=== PATIENT | female | born 1965 | race Caucasian/White ===

== ENCOUNTER 2020-02-18 16:23 | Inpatient (IN) ==
--- NOTE | 2020-02-18 16:58 | Emergency Department Note ---
History of Present Illness General Chief complaint: Mental Health Evaluation Stated complaint: MENTAL HEALTH Time Seen by Provider: 02/18/20 16:38 Source: patient and old records reviewed (I have reviewed the notes from [facility] today) Mode of arrival: ambulatory Limitations: no limitations History of Present Illness Maximum Pain Intensity: 6 This patient has a history of bipolar and anxiety is sent over from the [facility]. She is been having increasing problems with her mood and cleaning. She has been on multiple medications in the past. She was on lithium for many years which she said she did well but they stopped it earlier this year due to renal issues. Since then she is been on multiple meds which she said they cannot find the right one. Her most recent was Trileptal. She says that her thoughts are dis organized. She does not sleep well. She denies that she has taken any extra medicine or overdose. Denies aspirin or Tylenol. Klonopin does help when she uses it. No drugs or alcohol. She has had thoughts of hurting herself such as crashing her car. Denies any physical complaints. Home Medications Home Medications Medication Instructions Recorded Confirmed Type cholecalciferol (vitamin D3) 2,000 unit PO DAILY 05/27/18 02/18/20 History [Vitamin D3] clonazepam [Klonopin] 1 mg PO HS PRN 05/27/18 02/18/20 History cyanocobalamin (vitamin B-12) 500 mcg PO DAILY 05/27/18 02/18/20 History [Vitamin B-12] topiramate [Topamax] 50 mg PO BID 05/27/18 02/18/20 History acetaminophen 1,000 mg PO BID 01/07/19 02/18/20 History gabapentin 300 mg PO BID 01/07/19 02/18/20 History hydroxyzine HCl 25 mg tablet See Rx Instructions PO .COMPLEX 09/10/19 02/18/20 History montelukast 10 mg tablet 10 mg PO HS #90 tab 10/23/19 02/18/20 Rx albuterol sulfate 90 mcg/actuation 2 puff INHALATION Q4 PRN #18 gm 02/11/20 02/18/20 Rx aerosol inhaler levothyroxine 100 mcg tablet 100 mcg PO QAM #30 tab 02/12/20 02/18/20 Rx baclofen 5 mg PO TID PRN 02/18/20 02/18/20 History clonazepam 0.25 mg PO BID PRN 02/18/20 02/18/20 History lisdexamfetamine 20 mg PO QAM 02/18/20 02/18/20 History omeprazole 40 mg PO HS 02/18/20 02/18/20 History oxcarbazepine 150 mg PO BID 02/18/20 02/18/20 History ropinirole 0.25 mg tablet 0.25 mg PO TID #90 tab 02/18/20 02/18/20 Rx sertraline [Zoloft] 200 mg PO DAILY 02/18/20 02/18/20 History Allergies Allergy/AdvReac Type Severity Reaction Status Date / Time quetiapine [From Seroquel] Allergy Severe tardive Verified 02/18/20 18:32 dyskinesia cyclobenzaprine Allergy Intermediate severe Verified 02/18/20 18:32 depression latex Allergy Mild lehman; Verified 02/18/20 18:32 leaves a vani on skin NSAIDS (Non-Steroidal Allergy Mild Gastrointestinal Verified 02/18/20 18:32 Anti-Inflamma Upset psyllium [From Metamucil] Allergy Wheezing Verified 02/18/20 18:32 strawberry Allergy Hives Verified 02/18/20 18:32 Past Med/Surg History Medical History Anemia Anxiety Asthma (Chronic) inhaler prn Bipolar 1 disorder (Chronic) Chronic back pain Chronic kidney disease, stage 3 Depression History of anesthesia reaction difficulty waking up Hypothyroidism Osteoarthritis Prediabetes Sciatic leg pain left Tardive dyskinesia Surgical History History of bilateral tubal ligation History of carpal tunnel surgery of left wrist x2 History of carpal tunnel surgery of right wrist History of section History of cholecystectomy History of dilatation and curettage History of endometrial ablation History of gastric bypass History of tonsillectomy Family History Brother Family history of diabetes mellitus Father Family history of diabetes mellitus Aunt Family history of diabetes mellitus Grandfather (Paternal) Family history of diabetes mellitus Grandmother (Paternal) Family history of diabetes mellitus Other No family history of adverse response to anesthesia Social History Smoking Status: Former smoker Second Hand Exposure: Yes (work environment); Hx Alcohol Use: No Hx Substance Use: No Preferred Language: Turkish Communication Ability: Effective C Application Developer Required: No Beliefs That Will Affect Care: None Current Living Situation: Family Current Living Situation Comment: Lives with son current occupational status: employed Feels Safe at Home: Yes Review of Systems A total of 10 systems reviewed and were otherwise negative She denies any known exposure to COVID, denies cough or shortness of breath or body aches. No fever or chills. Physical Exam Vital Signs Vital Signs - 24 hr 02/18/20 16:34 02/18/20 17:59 Temperature 37.1 C Temperature Source Oral Pulse Rate 76 Pulse Rate [Right Finger] 71 Respiratory Rate 22 22 Respiratory Effort / Characteristics Non-Labored Non-Labored Spontaneous Respiratory Depth Normal Normal Respiratory Pattern Regular Regular Blood Pressure 138/84 Blood Pressure [Right Arm] 137/87 Blood Pressure Mean 102 Blood Pressure Mean [Right Arm] 103 Blood Pressure Position Sitting Pulse Oximetry 99 99 Oxygen Delivery Method Room Air Room Air Sepsis Recent Fever Within 48 Hours No Sepsis New/Unexplained Change in Mental Status No Sepsis Action Taken by Nursing No Action Required General: Well developed well nourished anxious middle-age female who has pressured speech but in no acute distress, breathing comfortably on room air. Normal speech HEENT: Normal cephalic atraumatic. Pupils are equal round and reactive to light. Extraocular movements are intact. Oropharynx is pink with moist mucous membranes. No swelling of the mouth lips or tongue. Neck: Supple with a midline trachea. No meningeal signs or stiffness, no JVD or bruits. No Stridor. Chest: Clear to auscultation bilaterally. No wheezes or rhonchi. No increased work of breathing. Heart: Regular rate and rhythm without murmurs or gallops. Abdomen: Soft nontender, nondistended without rebound guarding or rigidity. Extremities: No cyanosis clubbing or edema. No calf tenderness or assymetry Spine/Back. Non tender to palpation. No CVA tenderness Skin: Good turgor without rashes. Neurologic exam: Cranial nerves two through 12 are intact. Motor and sensation are intact and symmetrical throughout. Psych: She is intermittently teary-eyed and admits to having suicidal ideations but denies homicidal ideation Course Administered Medications Discontinued Medications Lorazepam (Ativan) 1 mg PO NOW STA Stop: 02/18/20 17:45 Last Admin: 02/18/20 18:05 Dose: 1 mg Documented by: [id number] Medical Decision Making Differential Diagnosis Bipolar, anxiety, toxicologic, medication side effect, electrolyte or metabolic abnormality, suicidal ideation Medical Records Attestation: I reviewed the patient's medical records. Home Medications Current Medication List: was personally reviewed by me Laboratory Data Result diagrams: 02/18/20 17:26 02/18/20 17:26 Lab Results 02/18/20 02/18/20 02/18/20 Range/Units 16:58 16:58 17:26 WBC 5.89 (4.8-10.8) K/uL RBC 5.24 (4.2-5.4) M/uL Hgb 13.9 (12.0-16.0) g/dL Hct 43.1 (37-47) % MCV 82.3 (80-100) fL MCH 26.5 (25-34) pg MCHC 32.3 (32-36) g/dL RDW Std Deviation 40.6 (36.4-46.3) fL RDW Coeff of Juan Diego 13.5 (11.5-14.5) % Plt Count 249 (130-400) K/uL MPV 11.3 H (7.4-10.4) fL Immature Gran % (Auto) 0.2 % Neut % (Auto) 67.0 % Lymph % (Auto) 21.9 % [place] % (Auto) 7.3 % Eos % (Auto) 3.1 % Baso % (Auto) 0.5 % Neut # (Auto) 3.95 (1.4-6.5) K/uL Lymph # (Auto) 1.29 (1.2-3.4) K/uL [place] # (Auto) 0.43 (0.11-0.59) K/uL Eos # (Auto) 0.18 (0-0.5) K/uL Baso # (Auto) 0.03 (0-0.2) K/uL Immature Gran # (Auto) 0.01 (0.00-0.02) K/uL Sodium (136-145) mmol/L Potassium (3.5-5.1) mmol/L Chloride (98-107) mmol/L Carbon Dioxide (21-32) mmol/L Anion Gap (3-11) BUN (7-18) mg/dl Creatinine (0.6-1.2) mg/dl Est Cr Clr Drug Dosing ml/min Est GFR ( Amer) Est GFR (Non-Af Amer) BUN/Creatinine Ratio (10-20) Glucose (70-99) mg/dl Calcium (8.5-10.1) mg/dl Total Bilirubin (0.2-1) mg/dl AST (15-37) U/L ALT (12-78) U/L Alkaline Phosphatase (45-117) U/L Total Protein (6.4-8.2) gm/dl Albumin (3.4-5.0) gm/dl Globulin (2.5-4.0) gm/dl Albumin/Globulin Ratio (0.9-2) TSH (0.300-4.500) uIu/ml Urine Color Yellow Urine Appearance Clear (Clear) Urine pH 8.0 H (4.5-7.5) Ur Specific Fraser 1.007 (1.000-1.030) Urine Protein Negative (Negative) Urine Glucose (UA) Negative (Negative) Urine Ketones Negative (Negative) Urine Blood Negative (Negative) Urine Nitrite Negative (Negative) Urine Bilirubin Negative (Negative) Urine Urobilinogen Negative (Negative) Ur Leukocyte Esterase Negative (Negative) Salicylates (2.8-20) mg/dl Urine Opiates Screen Neg (Neg) Ur Methadone, Qual Neg (Neg) Acetaminophen (10-30) ug/ml Urine Barbiturates Neg (Neg) Ur Phencyclidine (PCP) Neg (Neg) U Amphetamin/Meth Scrn Neg (Neg) MDMA (Ecstasy) Screen Neg (Neg) U Benzodiazepines Scrn Neg (Neg) Ur Cocaine Metabolite Neg (Neg) U Marijuana (THC) Screen Neg (Neg) Ethyl Alcohol mg/dL (0-3) mg/dl 02/18/20 02/18/20 02/18/20 Range/Units 17:26 17:26 17:26 WBC (4.8-10.8) K/uL RBC (4.2-5.4) M/uL Hgb (12.0-16.0) g/dL Hct (37-47) % MCV (80-100) fL MCH (25-34) pg MCHC (32-36) g/dL RDW Std Deviation (36.4-46.3) fL RDW Coeff of Juan Diego (11.5-14.5) % Plt Count (130-400) K/uL MPV (7.4-10.4) fL Immature Gran % (Auto) % Neut % (Auto) % Lymph % (Auto) % [place] % (Auto) % Eos % (Auto) % Baso % (Auto) % Neut # (Auto) (1.4-6.5) K/uL Lymph # (Auto) (1.2-3.4) K/uL [place] # (Auto) (0.11-0.59) K/uL Eos # (Auto) (0-0.5) K/uL Baso # (Auto) (0-0.2) K/uL Immature Gran # (Auto) (0.00-0.02) K/uL Sodium 141 (136-145) mmol/L Potassium 4.0 (3.5-5.1) mmol/L Chloride 112 H (98-107) mmol/L Carbon Dioxide 26 (21-32) mmol/L Anion Gap 4.0 (3-11) BUN 22 H (7-18) mg/dl Creatinine 1.13 (0.6-1.2) mg/dl Est Cr Clr Drug Dosing 67.4 ml/min Est GFR ( Amer) 62.9 Est GFR (Non-Af Amer) 54.3 BUN/Creatinine Ratio 19.6 (10-20) Glucose 72 (70-99) mg/dl Calcium 9.9 (8.5-10.1) mg/dl Total Bilirubin 0.2 (0.2-1) mg/dl AST 28 (15-37) U/L ALT 42 (12-78) U/L Alkaline Phosphatase 187 H (45-117) U/L Total Protein 7.5 (6.4-8.2) gm/dl Albumin 3.8 (3.4-5.0) gm/dl Globulin 3.7 (2.5-4.0) gm/dl Albumin/Globulin Ratio 1.0 (0.9-2) TSH 0.722 (0.300-4.500) uIu/ml Urine Color Urine Appearance (Clear) Urine pH (4.5-7.5) Ur Specific Fraser (1.000-1.030) Urine Protein (Negative) Urine Glucose (UA) (Negative) Urine Ketones (Negative) Urine Blood (Negative) Urine Nitrite (Negative) Urine Bilirubin (Negative) Urine Urobilinogen (Negative) Ur Leukocyte Esterase (Negative) Salicylates < 1.7 L (2.8-20) mg/dl Urine Opiates Screen (Neg) Ur Methadone, Qual (Neg) Acetaminophen < 2 L (10-30) ug/ml Urine Barbiturates (Neg) Ur Phencyclidine (PCP) (Neg) U Amphetamin/Meth Scrn (Neg) MDMA (Ecstasy) Screen (Neg) U Benzodiazepines Scrn (Neg) Ur Cocaine Metabolite (Neg) U Marijuana (THC) Screen (Neg) Ethyl Alcohol mg/dL < 3.0 (0-3) mg/dl Blood Pressure Blood Pressure Findings: Normal blood pressure Blood Pressure Disposition: did not require urgent referral MDM Narrative This patient comes in as described above she was placed in room A5. She is having increased anxiety and suicidal ideations with disorganized thoughts. She was sent over from her psychiatrist office. Multiple blood tests and urinalysis were ordered for medical clearance. She was medically cleared. She has nothing to suggest infection, toxicologic, metabolic or electrolyte or other reason causing her symptoms. She was evaluated a psychiatric case management team as well. She was referred to [facility] and will be admitted for further inpatient treatment and evaluation. She was feeling more anxious and did get Ativan 1 mg p.o. at the seem to calm her down. She also needed her evening dose of inhaler and she did receive her albuterol when I went to check her she was resting comfortable with no complaints with this. Prior to going upstairs to [facility] she did also request her Requip which I ordered for her restless leg. She was admitted/observed Impression & Plan Bipolar 1 disorder, Anxiety, Restless leg syndrome, Asthma Discharge Plan Visit Data Chief Complaint: Mental Health Evaluation Stated Complaint: MENTAL HEALTH ED Provider: Sohail Thurston Discharge Problem: Bipolar 1 disorder, Anxiety, Restless leg syndrome, Asthma Forms Stand Alone Forms: My [facility] [email or web address], Suicide Prevention Resources Prescriptions Prescriptions: No Action montelukast [Singulair] 10 mg tablet 10 mg PO HS Qty: 90 RF: 1 levothyroxine 100 mcg tablet 100 mcg PO QAM Qty: 30 RF: 5 ropinirole [Requip] 0.25 mg tablet 0.25 mg PO TID Qty: 90 RF: 2 albuterol sulfate [Ventolin HFA] 90 mcg/actuation HFA aerosol inhaler 2 puff INHALATION Q4 PRN (Reason: Shortness Of Breath Or Wheezing) Qty: 18 RF: 1 hydroxyzine HCl 25 mg tablet See Rx Instructions PO .COMPLEX RF: 0 acetaminophen 500 mg Tablet 1,000 mg PO BID RF: 0 gabapentin 300 mg Capsule 300 mg PO BID RF: 0 clonazepam 0.25 mg PO BID PRN (Reason: Anxiety) RF: 0 sertraline [Zoloft] 100 mg tablet 200 mg PO DAILY RF: 0 omeprazole 40 mg capsule,delayed release(DR/EC) 40 mg PO HS RF: 0 lisdexamfetamine 20 mg capsule 20 mg PO QAM RF: 0 baclofen 5 mg tablet 5 mg PO TID PRN (Reason: Back Pain) RF: 0 oxcarbazepine 150 mg PO BID RF: 0 clonazepam [Klonopin] 1 mg tablet 1 mg PO HS PRN (Reason: Anxiety) RF: 0 cyanocobalamin (vitamin B-12) [Vitamin B-12] 500 mcg Tablet 500 mcg PO DAILY RF: 0 topiramate [Topamax] 50 mg tablet 50 mg PO BID RF: 0 cholecalciferol (vitamin D3) [Vitamin D3] 5,000 unit Tablet 2,000 unit PO DAILY RF: 0 Discharge Problem: Asthma Qualifiers: Asthma severity: unspecified severity Asthma persistence: intermittent Asthma complication type: unspecified Qualified Code(s): J45.20 - Mild intermittent asthma, uncomplicated
[2020-02-18 17:11] LABS: Appearance Urine Clear (Clear); Bilirubin Urine Negative (Negative); Blood Urine Negative (Negative); Color Urine Yellow; Glucose Urine UA Negative (Negative); Ketones Urine Negative (Negative); Leukocyte Esterase Urine Negative (Negative); Nitrite Urine Negative (Negative); Protein Urine Negative (Negative); Specific Gravity Urine 1.007 (1.000-1.030); Urobilinogen Urine Negative (Negative)
[2020-02-18 17:33] LABS: Amphetamines+Metham, Urine Neg (Neg); Barbiturates, Urine Neg (Neg); Benzodiazepine, Urine Neg (Neg); Cocaine, Urine Neg (Neg); MDMA (Ecstacy), Urine Neg (Neg); Methadone, Urine Neg (Neg); Opiate, Urine Neg (Neg); Phencyclidine, Urine Neg (Neg)
[2020-02-18 17:42] LABS: Basophils # (auto) 0.03 K/uL (0-0.2); Basophils % (auto) 0.5 %; Eosinophils # (auto) 0.18 K/uL (0-0.5); Eosinophils % (auto) 3.1 %; Hematocrit (blood only) 43.1 % (37-47); Hemoglobin 13.9 g/dL (12.0-16.0); Immature Granulocytes # (auto) 0.01 K/uL (0.00-0.02); Immature Granulocytes % (auto) 0.2 %; Lymphocytes # (auto) 1.29 K/uL (1.2-3.4); Lymphocytes % (auto) 21.9 %; Mean Corpuscular Hemoglobin 26.5 pg (25-34); Mean Corpuscular Hgb Conc 32.3 g/dL (32-36); Mean Corpuscular Volume 82.3 fL (80-100); Mean Platelet Volume 11.3 fL (7.4-10.4); Monocytes # (auto) 0.43 K/uL (0.11-0.59); Monocytes % (auto) 7.3 %; Neutrophils # (auto) 3.95 K/uL (1.4-6.5); Platelet Count 249 K/uL (130-400); RDW Coefficient of Variation 13.5 % (11.5-14.5); RDW Standard Deviation 40.6 fL (36.4-46.3); Red Blood Count 5.24 M/uL (4.2-5.4); White Blood Count 5.89 K/uL (4.8-10.8)
[2020-02-18] MEDS ORDERED: LORazepam 1 MG TAB PO STA (17:44)
[2020-02-18 18:00] LABS: Albumin Level 3.8 gm/dl (3.4-5.0); BUN Creatinine Ratio 19.6 (10-20); Calcium 9.9 mg/dl (8.5-10.1); Creatinine Clr Calc Pharmacy 67.4 ml/min; Est GFR (African American) 62.9; Est GFR (Non-African American) 54.3
[2020-02-18 18:02] LABS: Acetaminophen < 2 ug/ml (10-30); Salicylate < 1.7 mg/dl (2.8-20)
[2020-02-18 18:11] LABS: Bilirubin,Total 0.2 mg/dl (0.2-1); Globulin 3.7 gm/dl (2.5-4.0); Thyroid Stimulating Hormone 0.722 uIu/ml (0.300-4.500); Total Protein 7.5 gm/dl (6.4-8.2)
[2020-02-18] MEDS ORDERED: ROPINIROLE HCL 0.25 MG TABLET PO STA (21:40)
[2020-02-18] MEDS ORDERED: ALUMINUM/MAGNESIUM SUSP 30 ML UDC PO PRN (22:01)
[2020-02-18] MEDS ORDERED: ACETAMINOPHEN 325 MG TAB PO PRN (22:01)
[2020-02-18] MEDS ORDERED: SODIUM CHLORIDE 0.65% NA SOLN 45 ML (OCEAN) PRN (22:01)
[2020-02-18] MEDS ORDERED: MAGNESIUM HYDROXIDE SUSP 30 ML UDC PO PRN (22:01)
[2020-02-18] MEDS ORDERED: BACLOFEN 10 MG TAB PO PRN (22:09)
[2020-02-18] MEDS ORDERED: ALBUTEROL HFA 8 GM INHALER INH PRN (22:09)
[2020-02-18] MEDS: GABAPENTIN 300 MG CAP PO SCH (23:02)
[2020-02-18] MEDS: TOPIRAMATE 50 MG TAB PO SCH (23:03)
[2020-02-18] MEDS: OXcarbazepine 150 MG TABLET PO SCH (23:04)
[2020-02-18] MEDS: ACETAMINOPHEN 500 MG TAB PO SCH (23:04)
[2020-02-18] MEDS: clonazePAM 1 MG TAB PO PRN (23:05)
[2020-02-19] MEDS ORDERED: ALBUTEROL HFA 8 GM INHALER INH PRN (00:45)
[2020-02-19] MEDS: ACETAMINOPHEN 500 MG TAB PO SCH ×2 (08:10→21:17)
[2020-02-19] MEDS: TOPIRAMATE 50 MG TAB PO SCH ×2 (08:10→21:16)
[2020-02-19] MEDS: CHOLECALCIFEROL 1,000 UNITS 25 MCG TAB PO SCH (08:10)
[2020-02-19] MEDS: OXcarbazepine 150 MG TABLET PO SCH ×2 (08:11→21:16)
[2020-02-19] MEDS: GABAPENTIN 300 MG CAP PO SCH ×2 (08:11→21:15)
[2020-02-19] MEDS: ROPINIROLE HCL 0.25 MG TABLET PO SCH ×3 (08:11→21:15)
[2020-02-19] MEDS: LEVOTHYROXINE SODIUM 100 MCG TABLET PO SCH (08:11)
[2020-02-19] MEDS: CYANOCOBALAMIN 500 MCG TABLET (VITAMIN B-12) PO SCH (08:11)
[2020-02-19] MEDS: SERTRALINE HCL 100 MG TABLET PO SCH (08:11)
[2020-02-19] MEDS ORDERED: LISDEXAMFETAMINE PO SCH (09:00)
[2020-02-19] MEDS ORDERED: LISDEXAMFETAMINE DIMESYLATE PO SCH (09:00)
[2020-02-19] MEDS: clonazePAM 0.5 MG TAB PO PRN ×2 (10:01→15:49)
--- NOTE | 2020-02-19 12:20 | History & Physical ---
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 emergency department has been reviewed and is excepted for purposes of medical clearance to the behavioral health unit. In addition, the patient reports a history of restless leg syndrome, binge eating disorder, and hypoglycemia following consumption of high glycemic foods. Physical Exam Psychiatric: Orientation: alert, oriented x 3 and cooperative Apperance: appropriately dressed and appropriately groomed Eye Contact: good eye contact Motor Behavior: + psychomotor agitation; + abnormal motor movements Abnormal involuntary movements of the head, neck, and tongue consistent with tardive dyskinesia Speech: + pressured speech Affect: + labile affect "I am manic." Thought Process: + flight of ideas Thought Content: + delusions (The patient states that 1 of her former psychiatrist, an individual who is known to me, "went to assisted for many years" in the past and, while in assisted, was ordered to wear "cowboy boots" for the rest of his life. Because of the nature of my contact with the previous psychiatrist, I can say with a fair degree of certainty that he was never imprisoned, although he does wear cowboy boots frequently.) Suicidal Thoughts: + reports suicidal thoughts Patient reports that she does not feel that she can contract for safety outside of the hospital because of the intensity of the thoughts that she was having of driving her car into the path of a semi-tractor trailer. When I asked her how she thought that might affect the charter and tour bus driver of the tractor-trailer, she began to say, "oh, he might be traumatized at first, but he will get over it." And then the patient paused and added, "See? That is not like me to say something like that or to think something like that. It is how I am when I am manic." Homicidal Thoughts: denies homicidal thoughts Hallucinations: no auditory hallucinations, no visual hallucinations and no tactile hallucinations Cognition: recent memory grossly intact and remote memory grossly intact; + attention not intact Estimated Intelligence: + above average estimated intelligence Insight: + fair insight Judgement: + fair judgement Vital Signs (Past 24 Hours): Last Vital Signs Temp 36.4 C L 02/19/20 06:42 Pulse 57 L 02/19/20 06:44 Resp 18 02/19/20 06:42 BP 139/89 02/19/20 06:44 Pulse Ox 99 02/18/20 17:59 Results & Data ([facility]) Laboratory Results Laboratory Results - last 24 hr 02/18/20 02/18/20 02/18/20 16:58 16:58 17:26 WBC 5.89 RBC 5.24 Hgb 13.9 Hct 43.1 MCV 82.3 MCH 26.5 MCHC 32.3 RDW Std Deviation 40.6 RDW Coeff of [place] 13.5 Plt Count 249 MPV 11.3 H Immature Gran % (Auto) 0.2 Neut % (Auto) 67.0 Lymph % (Auto) 21.9 Sutter % (Auto) 7.3 Eos % (Auto) 3.1 Baso % (Auto) 0.5 Neut # (Auto) 3.95 Lymph # (Auto) 1.29 Sutter # (Auto) 0.43 Eos # (Auto) 0.18 Baso # (Auto) 0.03 Immature Gran # (Auto) 0.01 Sodium Potassium Chloride Carbon Dioxide Anion Gap BUN Creatinine Est Cr Clr Drug Dosing Est GFR ( Amer) Est GFR (Non-Af Amer) BUN/Creatinine Ratio Glucose Calcium Total Bilirubin AST ALT Alkaline Phosphatase Total Protein Albumin Globulin Albumin/Globulin Ratio TSH Urine Color Yellow Urine Appearance Clear Urine pH 8.0 H Ur Specific [place] 1.007 Urine Protein Negative Urine Glucose (UA) Negative Urine Ketones Negative Urine Blood Negative Urine Nitrite Negative Urine Bilirubin Negative Urine Urobilinogen Negative Ur Leukocyte Esterase Negative Salicylates Urine Opiates Screen Neg Ur Methadone, Qual Neg Acetaminophen Urine Barbiturates Neg Ur Phencyclidine (PCP) Neg U Amphetamin/Meth Scrn Neg MDMA (Ecstasy) Screen Neg U Benzodiazepines Scrn Neg Ur Cocaine Metabolite Neg U Marijuana (THC) Screen Neg Ethyl Alcohol mg/dL 02/18/20 02/18/20 02/18/20 17:26 17:26 17:26 WBC RBC Hgb Hct MCV MCH MCHC RDW Std Deviation RDW Coeff of [place] Plt Count MPV Immature Gran % (Auto) Neut % (Auto) Lymph % (Auto) Sutter % (Auto) Eos % (Auto) Baso % (Auto) Neut # (Auto) Lymph # (Auto) [place]utter # (Auto) Eos # (Auto) Baso # (Auto) Immature Gran # (Auto) Sodium 141 Potassium 4.0 Chloride 112 H Carbon Dioxide 26 Anion Gap 4.0 BUN 22 H Creatinine 1.13 Est Cr Clr Drug Dosing 67.4 Est GFR ( Amer) 62.9 Est GFR (Non-Af Amer) 54.3 BUN/Creatinine Ratio 19.6 Glucose 72 Calcium 9.9 Total Bilirubin 0.2 AST 28 ALT 42 Alkaline Phosphatase 187 H Total Protein 7.5 Albumin 3.8 Globulin 3.7 Albumin/Globulin Ratio 1.0 TSH 0.722 Urine Color Urine Appearance Urine pH Ur Specific [place] Urine Protein Urine Glucose (UA) Urine Ketones Urine Blood Urine Nitrite Urine Bilirubin Urine Urobilinogen Ur Leukocyte Esterase Salicylates < 1.7 L Urine Opiates Screen Ur Methadone, Qual Acetaminophen < 2 L Urine Barbiturates Ur Phencyclidine (PCP) U Amphetamin/Meth Scrn MDMA (Ecstasy) Screen U Benzodiazepines Scrn Ur Cocaine Metabolite U Marijuana (THC) Screen Ethyl Alcohol mg/dL < 3.0 Current Inpatient Medications Current Inpatient Medications: Current Inpatient Medications Acetaminophen (Tylenol) 650 mg PO Q4H PRN PRN Reason: Headache or Minor Fever Stop: 03/19/20 22:00 Acetaminophen (Tylenol) 1,000 mg PO BID SYLVIE Stop: 03/19/20 22:14 Last Admin: 02/19/20 08:10 Dose: 1,000 mg Documented by: Al Hydrox/Mg Hydrox/Simethicone (Maalox) 30 ml PO Q4H PRN PRN Reason: GI Upset Stop: 03/19/20 22:00 Albuterol (Ventolin Hfa) 2 puffs INH Q4 PRN PRN Reason: Shortness Of Breath Or Wheezin Stop: 03/19/20 22:08 Baclofen (Lioresal) 5 mg PO TID PRN PRN Reason: Back Pain Stop: 03/19/20 22:08 Clonazepam (Klonopin) 0.25 mg PO BID PRN PRN Reason: Anxiety Stop: 03/19/20 22:20 Last Admin: 02/19/20 10:01 Dose: 0.25 mg Documented by: Clonazepam (Klonopin) 1 mg PO HS PRN PRN Reason: Anxiety Stop: 03/19/20 22:08 Last Admin: 02/18/20 23:05 Dose: 1 mg Documented by: Cyanocobalamin (Vitamin B-12) 500 mcg PO DAILY SYLVIE Stop: 03/20/20 08:59 Last Admin: 02/19/20 08:11 Dose: 500 mcg Documented by: Gabapentin (Neurontin) 300 mg PO BID SYLVIE Stop: 03/19/20 22:14 Last Admin: 02/19/20 08:11 Dose: 300 mg Documented by: Hydroxyzine HCl (Vistaril) 25 - 100 mg PO HS PRN PRN Reason: Sleep Stop: 03/20/20 21:59 Levothyroxine Sodium (Synthroid) 100 mcg PO DAILYBB SYLVIE Stop: 03/20/20 07:59 Last Admin: 02/19/20 08:11 Dose: 100 mcg Documented by: Lisdexamfetamine Dimesylate (Vyvanse) 1 ea PO QAM [facility] Stop: 03/20/20 08:59 Last Admin: 02/19/20 08:29 Dose: 1 ea Documented by: Magnesium Hydroxide (Milk Of Magnesia) 30 ml PO DAILY PRN PRN Reason: Constipation Stop: 03/19/20 22:00 Miscellaneous (Order Awaiting Action) 1 ea N/A QS [facility] Stop: 03/20/20 00:00 Last Admin: 02/19/20 08:29 Dose: Not Given Documented by: Montelukast Sodium (Singulair) 10 mg PO HS [facility] Stop: 03/20/20 21:59 Lisdexamfetamine~ Patient's Own Controlled Med 1 ea PO QAM [facility] Stop: 03/04/20 08:59 Last Admin: 02/19/20 08:30 Dose: 1 ea Documented by: Oxcarbazepine (Trileptal) 300 mg PO BID [facility] Stop: 03/19/20 22:14 Last Admin: 02/19/20 08:11 Dose: 300 mg Documented by: Pantoprazole Sodium (Protonix) 40 mg PO HS [facility] Stop: 03/20/20 21:59 Ropinirole HCl (Requip) 0.25 mg PO TID SYLVIE Stop: 03/20/20 08:59 Last Admin: 02/19/20 08:11 Dose: 0.25 mg Documented by: Sertraline HCl (Zoloft) 200 mg PO DAILY [facility] Stop: 03/20/20 08:59 Last Admin: 02/19/20 08:11 Dose: 200 mg Documented by: Sodium Chloride ([place] Nasal) 1 - 2 sprays NA PRN PRN PRN Reason: Nasal Dryness/Congestion Stop: 03/19/20 22:00 Topiramate (Topamax) 50 mg PO BID [facility] Stop: 03/19/20 22:14 Last Admin: 02/19/20 08:10 Dose: 50 mg Documented by: Vitamin D (Vitamin D3) 2,000 units PO DAILY SYLVIE Stop: 03/20/20 08:59 Last Admin: 02/19/20 08:10 Dose: 2,000 units Documented by:
[2020-02-19] MEDS: LITHIUM CARBONATE 300 MG TAB PO SCH ×2 (15:18→21:18)
[2020-02-19] MEDS: MONTELUKAST SODIUM 10 MG TABLET PO SCH (21:19)
[2020-02-19] MEDS: clonazePAM 1 MG TAB PO PRN (22:06)
[2020-02-19] MEDS: PANTOprazole 40 MG TAB PO SCH (22:10)
[2020-02-20] MEDS: LITHIUM CARBONATE 300 MG TAB PO SCH ×2 (08:49→21:23)
[2020-02-20] MEDS: LEVOTHYROXINE SODIUM 100 MCG TABLET PO SCH (08:49)
[2020-02-20] MEDS: GABAPENTIN 300 MG CAP PO SCH ×2 (08:50→21:23)
[2020-02-20] MEDS: ROPINIROLE HCL 0.25 MG TABLET PO SCH ×3 (08:50→21:22)
[2020-02-20] MEDS: ACETAMINOPHEN 500 MG TAB PO SCH ×2 (08:51→21:22)
[2020-02-20] MEDS: CYANOCOBALAMIN 500 MCG TABLET (VITAMIN B-12) PO SCH (08:51)
[2020-02-20] MEDS: TOPIRAMATE 50 MG TAB PO SCH ×2 (08:51→21:21)
[2020-02-20] MEDS: CHOLECALCIFEROL 1,000 UNITS 25 MCG TAB PO SCH (08:51)
[2020-02-20] MEDS: SERTRALINE HCL 100 MG TABLET PO SCH (08:52)
--- NOTE | 2020-02-20 08:55 | Psychiatric Progress Note ---
Date of Service February 20, 2020 Impression / Recommendations Impression Admission Assessment Impression: This 55-year-old woman was admitted through the emergency room because of increasing thoughts of suicide, within the context of chronic suicidal ideation, as well as for symptoms of dena with diminished impulse control and judgment. She reports that for many years she was stable on lithium carbonate 600 mg in the morning and 300 mg in the evening. Her dose of lithium carbonate had been increased to 600 mg in the morning and 450 mg in the afternoon by adding an additional 150 mg dose, and although this had been intended to be a temporary increase it was continued for a long time and the patient reportedly became lithium toxic fairly precipitously, according the patient. The record indicates that at least in 2018 the patient had been taking lithium carbonate 600 mg twice a day, at one point of been taking 600 mg in the morning and 750 mg in the evening.. She was told that her kidney functions have been affected by the toxicity, but the current laboratory data indicates that her renal functions have returned to normal and that what was described was most likely an acute insult. She has tardive dyskinesia poorly associated with her use of antipsychotic medications in the pastshe believes the responsible chemotherapeutic agent was quetiapineand she says that she is disinclined to agree to take other antipsychotic medications at this point, even his mood stabilizers. She had been prescribed Trileptal after lithium was discontinued following the above referenced episode, but she notes that she has not been stable ever since Trileptal was added and she does not feel that it has been effective as a mood stabilizer. Given that she provides a very clear history of favorable response to lithium carbonate. The diagnosis of stage III renal d isease is noted in the record. However, a nephrology consultation completed on 02/13/[address] Yohan Liz MD does not recommend that lithium carbonate be discontinued. Her BUN over the past 3 years appears to have fluctuated, but is currently consistent with previous measures. Her creatinine has fluctuated between 1.3 and 1.5 in the past, but currently is within normal limits at 1.1. As was explained to the patient, the use of lithium carbonate in her case is not without its risks, and will require ongoing monitoring. However, I advised the patient in my opinion the risk of lithium carbonate and renal impairment due to lithium carbonate appears to be outweighed by the demonstrated benefit. She notes that she has tried several alternatives to lithium carbonate, including most recently Trileptal, and also Depakote and carbamazepine in the past, but nothing has worked nearly as well as lithium and stabilizing her mood. The patient has been taught and is able to repeat correctly the signs of lithium toxicity, and she has been advised to report rapidly to the emergency room if she develops any symptoms that are even suggestive of lithium toxicity in order to be tested. We reviewed the interventions that are typically taken if someone developed lithium toxicity and the patient expressed reassurance. She indicates that she feels very positive about restarting lithium carbonate. Also, the patient is taking Vyvanse for binge eating disorder. In consultation with the patient it was agreed that this medication were to be stopped, at least for now, given the fact that the patient is manic. She does allow stephani she feels more activated and "more manic" on Vyvanse. She feels that Vyvanse does help with depression and her impulse to binge eat, but she does have insight into the fact that during a manic episode it is reasonable to discontinue it. (1) Bipolar 1 disorder: 02/19/20 -The patient has been admitted to [facility]. She has been placed on suicide precautions and is being closely monitored. We have also referred her for individual, group, and activity therapies. -Currently, the patient is exhibiting clear symptoms of dena including pressured speech, flight of ideas, and emotional lability that varies from elated mood to tearfulness. Mixed with her dena is the mood incongruent symptom of suicidal ideation, currently with plan and at least ambivalent intent. Patient reports that she chronically has suicidal thoughts and has had them for most of her life. However, when manic she indicates that her impulse control is diminished and she worries that she will actually act on 1 of the thoughts. -The patient has previously been given a diagnosis of stage III renal disease. However, a nephrology consult of 2018 does not recommend stopping lithium, and her current serum creatinine level is actually lower than it was in 2018. There is a history of lithium toxicity, which, according the patient, precipitated the decision to discontinue lithium. However, she reports that she has been stable on lithium for mood a number of years and feels that it is by far the best medicine in terms of managing her mood alterations. After carefully discussing the risks of lithium carbonate including, but not limited to renal impairment, the patient and the treatment team agreed that the most appropriate treatment at this point is to resume lithium carbonate. We all agree that in her case the risk is outweighed by the anticipated benefit, and we will monitor her lithium levels. She is also been taught and is able to correctly repeat the symptoms of lithium toxicity. -We will begin lithium carbonate 600 mg in the morning and 300 mg in the evening and check her serum lithium level in 3 days. -Patient is currently taking the stimulant medication Vyvanse. The patient has been advised that Vyvanse is known to precipitate or worsen symptoms during a manic episode, particularly in the absence of a mood stabilizer, and she agrees that the best course of action at this point is to discontinue stimulant medications, specifically Vyvanse, at least until her mood has been stabilized. 02/19 - Continue lithium 600mg qAM and 300mg qHS - patient was offered once daily dosing, as there is evidence to suggest this is more renal protective that BID dosing. 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 Will discontinue Trileptal since patient feels it had been ineffective, and lithium is being resumed. - Added BMP to lithium level blood work ordered for 02/21 - to check kidney function - Pt continues to be labile, tangential, and disorganized - Schedule family meeting with son when appropriate (2) Tardive dyskinesia: 02/18 -The patient has abnormal involuntary movements that involve her head, neck, oral musculature, and tongue. She notes that she is fully aware of these abnormal movements and says that they get worse when she is anxious. The patient also says that she was diagnosed with tardive dyskinesia after she was offered a trial of quetiapine, although she also indicates that she has taken other antipsychotic medications. -The patient notes that her symptoms of tardive dyskinesia are not particularly troubling to her most the time, but, as above, worsen while under stress and anxiety. She has been advised that there are medications that can be used to treat tardive dyskinesia, but these are not currently available at the hospital. (3) Restless leg syndrome: 02/18 -The patient reports that she carries a diagnosis of restless leg syndrome and normally takes the medication Requip for her restless leg symptoms. She also takes gabapentin, but she says that she is not able to take a high enough dose of this medication at bedtime to address her restless legs because doses of gabapentin above 300 mg caused excess sedation. Inventory Assets Strengths: The patient has a fair amount of insight into her illness and is co operative with treatment. She also knows her own psychiatric history and is able to assist in developing her treatment plan. She also has a history of favorable response to treatment. Needs: Mood stabilization. Resolution of dena. Resolution of active suicidal plan and intent with ability to be able to return to the community with a plan for continued safety. Risk Factors Assessment Male: No : Yes Do You Have Access To A Gun?: No Health Problems: Yes Mental Health Diagnoses: Yes Substance Use Disorders: No Previous Attempt: Yes Previous Attempt; Highly Lethal: Yes Previous Attempt; Planned: Yes Previous Attempt; Didn't Tell Anyone: No Family History of Suicide: No Previous Psychiatric Hospitalization: Yes Hopelessness: No Smoker: No Protective Factors Assessment Adventism Beliefs: No : No Responsible for Young Children: No Employed: Yes ([employer]) Stable Relationships: Yes Supportive Family: Yes Good Rapport with Provider: Yes Absence of Any Risk Factors Above: No Interval History Identifying Information CATHERINE ZARCO is a 55-year-old F who currently lives lone near [place], [place]. She lives alone. The patient has a known history of bipolar disorder and was admitted on 02/18/20 21:31 on a 201 voluntary agreement because of manic symptoms as well as because of worsening thoughts of suicide that included thoughts of driving her car head-on into a tree or into an oncoming truck. Chief Complaint "I feel more like myself." Review of Systems Notes Constitutional: admits to some ongoing anxiety; poor sleep related to back pain Cardiovascular: denied Respiratory: denied Gastrointestinal: denied Neurological: reports restless legs, left foot pain (persisting, but improved overall) Musculoskeletal: reports chronic back pain Psychiatric: denies symptoms other than stated above Total of at least 10 systems reviewed, pertinent positives as above and in HPI. Sleep Information Total Hours of Sleep: 6 Meal Information Percent Meal Consumed - Breakfast: 100 Percent Meal Consumed - Lunch: 100 Percent Meal Consumed - Dinner: 100 Subjective Subjective Patient was seen & assessed and interval progress reviewed with nursing and social work. Staff report the patient has appeared manic, is tangential in conversation, and has been requesting to clean things on the unit as a way to keep busy. Pt did report improvement in mood after being given a dose of lithium as well as prn of clonazepam. Pt was seen today to assess progress since admission. Pt states initially that she is feeling "more like myself" today, but then begins to verbalize numerous frustrations related to her admission. She admits that her mood is not yet stable, but begins to request discharge as she reports she is "bored." She continues to be tangential and disorganized, reporting desire for discharge is related to "I like to be able to go outside and have a life. I like watermelon and zucchini, and you don't have those here. I specifically like to cut up watermelon and zucchini, I juts feel anxious." Pt was reminded of several unattained goals that would be recommended prior to considering discharge, including a family meeting with her son and ensuring response to the new medication regimen. This provider attempted to discuss recommendation to consolidate lithium dosing to once daily; however, patient feels this will be impossible due to working nights and being unable to take the medication at a consistent time. Pt was encouraged to continue to focus on the goals of treatment and attend group programming consistently to work on coping strategies she can utilize during her stay and post discharge. Pt was asked about the presence of suicidal thoughts. She states "not before this conversation." When asked about thoughts after the conversion, patient offers a facetious smile and states "I'm just wonderful..." She does continues to deflect from the question by continuing to verbalize concerns. She denied specific needs at this time. Physical Exam Psychiatric Orientation: alert, oriented x 3 and + guarded (superficially cooperative, but reporting frustrations) Apperance: appropriately dressed (casually, in jeans and a t-shirt), appropriately groomed (hair appearing clean and neatly groomed) and appeared stated age Eye Contact: + fair eye contact Motor Behavior: no abnormal motor movements (observed while sitting at table ) Speech: + pressured speech (rambling, frequently interrupting) Affect: + anxious affect Mood: + depressed mood and + anxious mood Thought Process: + tangential thought process and + perseveration; + thought process not clear or coherent Thought Content: + preoccupation Suicidal Thoughts: cannot convincingly deny SI at time of this encounter Homicidal Thoughts: denies homicidal thoughts Hallucinations: no auditory hallucinations and no visual hallucinations Cognition: language grossly intact; + attention not intact Estimated Intelligence: consistent with education level Insight: + impaired insight Judgement: + impaired judgement Vital Signs (Past 24 Hours) Last Vital Signs Temp 36.4 C L 02/20/20 06:40 Pulse 71 02/20/20 06:40 Resp 18 02/20/20 06:40 BP 125/80 02/20/20 06:40 Pulse Ox 99 02/18/20 17:59 Results & Data ([facility]) Current Inpatient Medications Current Inpatient Medications: Current Inpatient Medications Acetaminophen (Tylenol) 650 mg PO Q4H PRN PRN Reason: Headache or Minor Fever Stop: 03/19/20 22:00 Acetaminophen (Tylenol) 1,000 mg PO BID SYLVIE Stop: 03/19/20 22:14 Last Admin: 02/19/20 21:17 Dose: 1,000 mg Documented by: Al Hydrox/Mg Hydrox/Simethicone (Maalox) 30 ml PO Q4H PRN PRN Reason: GI Upset Stop: 03/19/20 22:00 Albuterol (Ventolin Hfa) 2 puffs INH Q4 PRN PRN Reason: Shortness Of Breath Or Wheezin Stop: 03/19/20 22:08 Baclofen (Lioresal) 5 mg PO TID PRN PRN Reason: Back Pain Stop: 03/19/20 22:08 Clonazepam (Klonopin) 0.25 mg PO BID PRN PRN Reason: Anxiety Stop: 03/19/20 22:20 Last Admin: 02/19/20 15:49 Dose: 0.25 mg Documented by: Clonazepam (Klonopin) 1 mg PO HS PRN PRN Reason: Anxiety Stop: 03/19/20 22:08 Last Admin: 02/19/20 22:06 Dose: 1 mg Documented by: Cyanocobalamin (Vitamin B-12) 500 mcg PO DAILY SYLVIE Stop: 03/20/20 08:59 Last Admin: 02/19/20 08:11 Dose: 500 mcg Documented by: Gabapentin (Neurontin) 300 mg PO BID SYLVIE Stop: 03/19/20 22:14 Last Admin: 02/19/20 21:15 Dose: 300 mg Documented by: Hydroxyzine HCl (Vistaril) 25 - 100 mg PO HS PRN PRN Reason: Sleep Stop: 03/20/20 21:59 Last Admin: 02/19/20 22:07 Dose: 75 mg Documented by: Levothyroxine Sodium (Synthroid) 100 mcg PO DAILYBB [facility] Stop: 03/20/20 07:59 Last Admin: 02/19/20 08:11 Dose: 100 mcg Documented by: Kerr Carbonate (Kerr Carbonate) 600 mg PO QAM [facility] Stop: 03/20/20 13:44 Last Admin: 02/19/20 15:18 Dose: 600 mg Documented by: Kerr Carbonate (Kerr Carbonate) 300 mg PO HS [facility] Stop: 03/20/20 21:59 Last Admin: 02/19/20 21:18 Dose: 300 mg Documented by: Magnesium Hydroxide (Milk Of Magnesia) 30 ml PO DAILY PRN PRN Reason: Constipation Stop: 03/19/20 22:00 Last Admin: 02/20/20 06:21 Dose: 30 ml Documented by: Montelukast Sodium (Singulair) 10 mg PO HS [facility] Stop: 03/20/20 21:59 Last Admin: 02/19/20 21:19 Dose: 10 mg Documented by: Oxcarbazepine (Trileptal) 300 mg PO BID [facility] Stop: 03/19/20 22:14 Last Admin: 02/19/20 21:16 Dose: 300 mg Documented by: Pantoprazole Sodium (Protonix) 40 mg PO HS [facility] Stop: 03/20/20 21:59 Last Admin: 02/19/20 22:10 Dose: Not Given Documented by: Ropinirole HCl (Requip) 0.25 mg PO TID SYLVIE Stop: 03/20/20 08:59 Last Admin: 02/19/20 21:15 Dose: 0.25 mg Documented by: Sertraline HCl (Zoloft) 200 mg PO DAILY SYLVIE Stop: 03/20/20 08:59 Last Admin: 02/19/20 08:11 Dose: 200 mg Documented by: Sodium Chloride ([place] Nasal) 1 - 2 sprays NA PRN PRN PRN Reason: Nasal Dryness/Congestion Stop: 03/19/20 22:00 Topiramate (Topamax) 50 mg PO BID [facility] Stop: 03/19/20 22:14 Last Admin: 02/19/20 21:16 Dose: 50 mg Documented by: Vitamin D (Vitamin D3) 2,000 units PO DAILY SYLVIE Stop: 03/20/20 08:59 Last Admin: 02/19/20 08:10 Dose: 2,000 units Documented by: Mental Health & Subst Abuse Tx Therapist Name of Therapist: Zina Arguelles [facility] via phone (Fridays at 1pm) Card Decorator Name of Card Decorator: [facility] Date of Appointment with Card Decorator: 02/25/20 Time of Appointment with Card Decorator: 11am Post Discharge Appointments Primary Care Physician Name Of Family Doctor: Dr. Cerrato, [facility]
[2020-02-20] MEDS: OXcarbazepine 150 MG TABLET PO SCH (09:19)
[2020-02-20] MEDS: clonazePAM 0.5 MG TAB PO PRN (10:12)
[2020-02-20] MEDS: DOCUSATE SODIUM 100 MG CAP PO SCH ×2 (14:24→21:23)
[2020-02-20] MEDS ORDERED: SOD PHOSPHATE/SOD BIPHOSPHATE ENEMA 132 ML BTL PR ONE (16:59)
[2020-02-20] MEDS: PANTOprazole 40 MG TAB PO SCH (21:22)
[2020-02-20] MEDS: MONTELUKAST SODIUM 10 MG TABLET PO SCH (21:23)
[2020-02-20] MEDS: clonazePAM 1 MG TAB PO PRN (22:01)
--- NOTE | 2020-02-21 07:42 | Psychiatric Progress Note ---
Date of Service February 21, 2020 Impression / Recommendations Impression Admission Assessment Impression: This 55-year-old woman was admitted through the emergency room because of increasing thoughts of suicide, within the context of chronic suicidal ideation, as well as for symptoms of dena with diminished impulse control and judgment. She reports that for many years she was stable on lithium carbonate 600 mg in the morning and 300 mg in the evening. Her dose of lithium carbonate had been increased to 600 mg in the morning and 450 mg in the afternoon by adding an additional 150 mg dose, and although this had been intended to be a temporary increase it was continued for a long time and the patient reportedly became lithium toxic fairly precipitously, according the patient. The record indicates that at least in 2018 the patient had been taking lithium carbonate 600 mg twice a day, at one point of been taking 600 mg in the morning and 750 mg in the evening.. She was told that her kidney functions have been affected by the toxicity, but the current laboratory data indicates that her renal functions have returned to normal and that what was described was most likely an acute insult. She has tardive dyskinesia poorly associated with her use of antipsychotic medications in the pastshe believes the responsible chemotherapeutic agent was quetiapineand she says that she is disinclined to agree to take other antipsychotic medications at this point, even his mood stabilizers. She had been prescribed Trileptal after lithium was discontinued following the above referenced episode, but she notes that she has not been stable ever since Trileptal was added and she does not feel that it has been effective as a mood stabilizer. Given that she provides a very clear history of favorable response to lithium carbonate. The diagnosis of stage III renal d isease is noted in the record. However, a nephrology consultation completed on 02/13/[address] Yohan Liz MD does not recommend that lithium carbonate be discontinued. Her BUN over the past 3 years appears to have fluctuated, but is currently consistent with previous measures. Her creatinine has fluctuated between 1.3 and 1.5 in the past, but currently is within normal limits at 1.1. As was explained to the patient, the use of lithium carbonate in her case is not without its risks, and will require ongoing monitoring. However, I advised the patient in my opinion the risk of lithium carbonate and renal impairment due to lithium carbonate appears to be outweighed by the demonstrated benefit. She notes that she has tried several alternatives to lithium carbonate, including most recently Trileptal, and also Depakote and carbamazepine in the past, but nothing has worked nearly as well as lithium and stabilizing her mood. The patient has been taught and is able to repeat correctly the signs of lithium toxicity, and she has been advised to report rapidly to the emergency room if she develops any symptoms that are even suggestive of lithium toxicity in order to be tested. We reviewed the interventions that are typically taken if someone developed lithium toxicity and the patient expressed reassurance. She indicates that she feels very positive about restarting lithium carbonate. Also, the patient is taking Vyvanse for binge eating disorder. In consultation with the patient it was agreed that this medication were to be stopped, at least for now, given the fact that the patient is manic. She does allow stephani she feels more activated and "more manic" on Vyvanse. She feels that Vyvanse does help with depression and her impulse to binge eat, but she does have insight into the fact that during a manic episode it is reasonable to discontinue it. (1) Bipolar 1 disorder: 02/19/20 -The patient has been admitted to the [facility] inpatient psychiatric behavioral health unit. She has been placed on suicide precautions and is being closely monitored. We have also referred her for individual, group, and activity therapies. -Currently, the patient is exhibiting clear symptoms of dena including pressured speech, flight of ideas, and emotional lability that varies from elated mood to tearfulness. Mixed with her dena is the mood incongruent symptom of suicidal ideation, currently with plan and at least ambivalent intent. Patient reports that she chronically has suicidal thoughts and has had them for most of her life. However, when manic she indicates that her impulse control is diminished and she worries that she will actually act on 1 of the thoughts. -The patient has previously been given a diagnosis of stage III renal disease. However, a nephrology consult of 2018 does not recommend stopping lithium, and her current serum creatinine level is actually lower than it was in 2018. There is a history of lithium toxicity, which, according the patient, precipitated the decision to discontinue lithium. However, she reports that she has been stable on lithium for mood a number of years and feels that it is by far the best medicine in terms of managing her mood alterations. After carefully discussing the risks of lithium carbonate including, but not limited to renal impairment, the patient and the treatment team agreed that the most appropriate treatment at this point is to resume lithium carbonate. We all agree that in her case the risk is outweighed by the anticipated benefit, and we will monitor her lithium levels. She is also been taught and is able to correctly repeat the symptoms of lithium toxicity. -We will begin lithium carbonate 600 mg in the morning and 300 mg in the evening and check her serum lithium level in 3 days. -Patient is currently taking the stimulant medication Vyvanse. The patient has been advised that Vyvanse is known to precipitate or worsen symptoms during a manic episode, particularly in the absence of a mood stabilizer, and she agrees that the best course of action at this point is to discontinue stimulant medications, specifically Vyvanse, at least until her mood has been stabilized. 02/19 - Continue lithium 600mg qAM and 300mg qHS - patient was offered once daily dosing, as there is evidence to suggest this is more renal protective that BID dosing. 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 Will discontinue Trileptal since patient feels it had been ineffective, and lithium is being resumed. - Added BMP to lithium level blood work ordered for 02/21 - to check kidney function - Pt continues to be labile, tangential, and disorganized - Schedule family meeting with son when appropriate 02/20 - Continue current medication regimen - [place] level, BMP, and HgbA1c ordered for tomorrow morning - Pt seems somewhat less labile today, but continues to be disorganized and tangential - Pt had a spontaneous family meeting with son today, reportedly had difficulty understanding and respecting son's boundaries - Will attempt to engage additional outpatient supports in treatment, specifically patient's pillowcase maker (2) Tardive dyskinesia: 02/18 -The patient has abnormal involuntary movements that involve her head, neck, oral musculature, and tongue. She notes that she is fully aware of these abnormal movements and says that they get worse when she is anxious. The patient also says that she was diagnosed with tardive dyskinesia after she was offered a trial of quetiapine, although she also indicates that she has taken other antipsychotic medications. -The patient notes that her symptoms of tardive dyskinesia are not particularly troubling to her most the time, but, as above, worsen while under stress and anxiety. She has been advised that there are medications that can be used to treat tardive dyskinesia, but these are not currently available at the hospital. (3) Restless leg syndrome: 02/18 -The patient reports that she carries a diagnosis of restless leg syndrome and normally takes the medication Requip for her restless leg symptoms. She also takes gabapentin, but she says that she is not able to take a high enough dose of this medication at bedtime to address her restless legs because doses of gabapentin above 300 mg caused excess sedation. Inventory Assets Strengths: The patient has a fair amount of insight into her illness and is cooperative with treatment. She also knows her own psychiatric history and is able to assist in developing her treatment plan. She also has a history of favorable response to treatment. Needs: Mood stabilization. Resolution of dena. Resolution of active suicidal plan and intent with ability to be able to return to the community with a plan for continued safety. Risk Factors Assessment Male: No : Yes Do You Have Access To A Gun?: No Health Problems: Yes Mental Health Diagnoses: Yes Substance Use Disorders: No Previous Attempt: Yes Previous Attempt; Highly Lethal: Yes Previous Attempt; Planned: Yes Previous Attempt; Didn't Tell Anyone: No Family History of Suicide: No Previous Psychiatric Hospitalization: Yes Hopelessness: No Smoker: No Protective Factors Assessment Nondenominational Beliefs: No : No Responsible for Young Children: No Employed: Yes ([employer]) Stable Relationships: Yes Supportive Family: Yes Good Rapport with Provider: Yes Absence of Any Risk Factors Above: No Interval History Identifying Information CATHERINE ZARCO is a 55-year-old F who currently lives [place] near [place], [place]. She lives alone. The patient has a known history of bipolar disorder and was admitted on 02/18/20 21:31 on a 201 voluntary agreement because of manic symptoms as well as because of worsening thoughts of suicide that included thoughts of driving her car head-on into a tree or into an oncoming truck. Chief Complaint "Hey, I do have a diagnosis of insomnia disorder. I don't know if that's in my chart." Review of Systems Notes Constitutional: denied Cardiovascular: denied Respiratory: denied Gastrointestinal: denied Neurological: denied Musculoskeletal: reports ongoing back pain Psychiatric: denies symptoms other than stated above Total of at least 10 systems reviewed, pertinent positives as above and in HPI. Sleep Information Total Hours of Sleep: 7 Meal Information Percent Meal Consumed - Breakfast: 75 Percent Meal Consumed - Lunch: 25 Percent Meal Consumed - Dinner: 75 Subjective Subjective Patient was seen & assessed and interval progress reviewed with nursing and social work. Staff report the patient has continued to be disorganized and has been verbalizing various frustrations surrounding her continued hospitalization. Pt reported attempted to call her son last evening, but had not yet received a return call and was saddened by this. Pt was seen today to assess progress since admission. Pt initially states that she does not feel like she has much energy, blaming this on her Vyvanse being held due to manic-state at time of admission. Pt immediately follows up this statement by saying she feels "good" and "more stable, more clear. Even keel as they say, I guess." Pt does feel that she is already beginning to notice the effects of lithium being resumed. She is able to recognize that she continues to be tangential, randomly offering unrelated thoughts during our conversation. She states "I realize I do that all the time though. That's a sign of dena, but I think I just naturally do that. I'm trying to work on it." Pt initially stated that she has no outpatient support, but was later able to provide several examples of individuals she could reach out to if necessary for help. Pt denies SI at this time, but does states "I will get depressed if I stay here much longer." We reviewed lithium level and BMP to be drawn tomorrow morning. Pt also requested A1c, which is included with dietary recommendations and was therefore added as well. Pt denies additional needs or concerns at this time. Physical Exam Psychiatric Orientation: alert and cooperative (though intermittently verbalizing frustrations with treatment) Apperance: appropriately dressed, appropriately groomed and appeared stated age Eye Contact: + fair eye contact Motor Behavior: no abnormal motor movements Speech: normal rate/rhythm/volume of speech (rhythm of speech is appropriate, but patient continues to ramble ) Affect: euthymic affect and mood congruent with affect Mood: no depressed mood ("I feel more stable, more clear. Even keel as they say, I guess") Thought Process: goal directed thought process, + tangential thought process (though seems to have some insight into this), + perseveration (on limited outpatient supports and various frustrations w/ admission) and + concrete thought process Thought Content: + cognitive distortions Suicidal Thoughts: denies suicidal thoughts Homicidal Thoughts: denies homicidal thoughts Hallucinations: no auditory hallucinations and no visual hallucinations Cognition: attention grossly intact and language grossly intact Insight: + limited insight Judgement: + limited judgement Vital Signs (Past 24 Hours) Last Vital Signs Temp 36.3 C L 02/21/20 06:41 Pulse 75 02/21/20 06:42 Resp 20 02/21/20 06:41 BP 106/72 02/21/20 06:42 Pulse Ox 99 02/18/20 17:59 Results & Data ([facility]) Laboratory Results Laboratory Results - last 24 hr 02/20/20 02/20/20 11:36 12:32 POC Glucose 63 L* 78 Current Inpatient Medications Current Inpatient Medications: Current Inpatient Medications Acetaminophen (Tylenol) 650 mg PO Q4H PRN PRN Reason: Headache or Minor Fever Stop: 03/19/20 22:00 Acetaminophen (Tylenol) 1,000 mg PO BID [facility] Stop: 03/19/20 22:14 Last Admin: 02/20/20 21:22 Dose: 1,000 mg Documented by: Al Hydrox/Mg Hydrox/Simethicone (Maalox) 30 ml PO Q4H PRN PRN Reason: GI Upset Stop: 03/19/20 22:00 Albuterol (Ventolin Hfa) 2 puffs INH Q4 PRN PRN Reason: Shortness Of Breath Or Wheezin Stop: 03/19/20 22:08 Baclofen (Lioresal) 5 mg PO TID PRN PRN Reason: Back Pain Stop: 03/19/20 22:08 Clonazepam (Klonopin) 0.25 mg PO BID PRN PRN Reason: Anxiety Stop: 03/19/20 22:20 Last Admin: 02/20/20 10:12 Dose: 0.25 mg Documented by: Clonazepam (Klonopin) 1 mg PO HS PRN PRN Reason: Anxiety Stop: 03/19/20 22:08 Last Admin: 02/20/20 22:01 Dose: 1 mg Documented by: Cyanocobalamin (Vitamin B-12) 500 mcg PO DAILY SYLVIE Stop: 03/20/20 08:59 Last Admin: 02/20/20 08:51 Dose: 500 mcg Documented by: Docusate Sodium (Colace) 100 mg PO BID SYLVIE Stop: 03/21/20 13:59 Last Admin: 02/20/20 21:23 Dose: 100 mg Documented by: Gabapentin (Neurontin) 300 mg PO BID SYLVIE Stop: 03/19/20 22:14 Last Admin: 02/20/20 21:23 Dose: 300 mg Documented by: Hydroxyzine HCl (Vistaril) 25 - 100 mg PO HS PRN PRN Reason: Sleep Stop: 03/20/20 21:59 Last Admin: 02/19/20 22:07 Dose: 75 mg Documented by: Levothyroxine Sodium (Synthroid) 100 mcg PO DAILYBB SYLVIE Stop: 03/20/20 07:59 Last Admin: 02/20/20 08:49 Dose: 100 mcg Documented by: [place] Carbonate ([place] Carbonate) 600 mg PO QAM [facility] Stop: 03/20/20 13:44 Last Admin: 02/20/20 08:49 Dose: 600 mg Documented by: [place] Carbonate ([place] Carbonate) 300 mg PO HS [facility] Stop: 03/20/20 21:59 Last Admin: 02/20/20 21:23 Dose: 300 mg Documented by: Magnesium Hydroxide (Milk Of Magnesia) 30 ml PO DAILY PRN PRN Reason: Constipation Stop: 03/19/20 22:00 Last Admin: 02/20/20 06:21 Dose: 30 ml Documented by: Montelukast Sodium (Singulair) 10 mg PO HS [facility] Stop: 03/20/20 21:59 Last Admin: 02/20/20 21:23 Dose: 10 mg Documented by: Pantoprazole Sodium (Protonix) 40 mg PO HS [facility] Stop: 03/20/20 21:59 Last Admin: 02/20/20 21:22 Dose: 40 mg Documented by: Ropinirole HCl (Requip) 0.25 mg PO TID SYLVIE Stop: 03/20/20 08:59 Last Admin: 02/20/20 21:22 Dose: 0.25 mg Documented by: Sertraline HCl (Zoloft) 200 mg PO DAILY SYLVIE Stop: 03/20/20 08:59 Last Admin: 02/20/20 08:52 Dose: 200 mg Documented by: Sodium Chloride (Dickey Nasal) 1 - 2 sprays NA PRN PRN PRN Reason: Nasal Dryness/Congestion Stop: 03/19/20 22:00 Topiramate (Topamax) 50 mg PO BID SYLVIE Stop: 03/19/20 22:14 Last Admin: 02/20/20 21:21 Dose: 50 mg Documented by: Vitamin D (Vitamin D3) 2,000 units PO DAILY SYLVIE Stop: 03/20/20 08:59 Last Admin: 02/20/20 08:51 Dose: 2,000 units Documented by: Mental Health & Subst Abuse Tx Psychiatrist Name of Psychiatrist: Lelo Yang Psychiatrist's Psychiatric Appointment Comment: [id number] [facility], [place] Therapist Name of Therapist: [facility] Therapist's Date of Therapist Appointment: 02/26/20 Time of Therapist Appointment: 1 p.m. Therapy Appointment Comment: Via phone [employer] Manager Name of [facility] Home [facility] Manager: [facility] [place] Phone Number for Mobile Home Park Manager: [phone] Date of Appointment with Mobile Home Park Manager: 02/25/20 Time of Appointment with Mobile Home Park Manager: 11 am Post Discharge Appointments Primary Care Physician Name Of Family Doctor: SYDNEY Cerrato Primary Care Provider Appointment Comment: [id number], [place] [address] Contact Information Discharge Discharge Address: [address] [place] [id number]
[2020-02-21] MEDS: CHOLECALCIFEROL 1,000 UNITS 25 MCG TAB PO SCH (08:09)
[2020-02-21] MEDS: DOCUSATE SODIUM 100 MG CAP PO SCH ×2 (08:09→21:01)
[2020-02-21] MEDS: SERTRALINE HCL 100 MG TABLET PO SCH (08:09)
[2020-02-21] MEDS: CYANOCOBALAMIN 500 MCG TABLET (VITAMIN B-12) PO SCH (08:09)
[2020-02-21] MEDS: TOPIRAMATE 50 MG TAB PO SCH ×2 (08:10→21:02)
[2020-02-21] MEDS: LITHIUM CARBONATE 300 MG TAB PO SCH ×2 (08:10→21:02)
[2020-02-21] MEDS: LEVOTHYROXINE SODIUM 100 MCG TABLET PO SCH (08:10)
[2020-02-21] MEDS: ROPINIROLE HCL 0.25 MG TABLET PO SCH ×3 (08:10→21:01)
[2020-02-21] MEDS: ACETAMINOPHEN 500 MG TAB PO SCH ×2 (08:12→21:02)
[2020-02-21] MEDS: GABAPENTIN 300 MG CAP PO SCH ×2 (08:24→21:01)
[2020-02-21] MEDS: PANTOprazole 40 MG TAB PO SCH (21:02)
[2020-02-21] MEDS: MONTELUKAST SODIUM 10 MG TABLET PO SCH (21:03)
[2020-02-21] MEDS: clonazePAM 1 MG TAB PO PRN (22:48)
[2020-02-22] MEDS: LEVOTHYROXINE SODIUM 100 MCG TABLET PO SCH (08:28)
[2020-02-22] MEDS: LITHIUM CARBONATE 300 MG TAB PO SCH (08:29)
[2020-02-22] MEDS: GABAPENTIN 300 MG CAP PO SCH (08:29)
[2020-02-22] MEDS: DOCUSATE SODIUM 100 MG CAP PO SCH (08:29)
[2020-02-22] MEDS: ROPINIROLE HCL 0.25 MG TABLET PO SCH (08:29)
[2020-02-22] MEDS: TOPIRAMATE 50 MG TAB PO SCH (08:30)
[2020-02-22] MEDS: SERTRALINE HCL 100 MG TABLET PO SCH (08:30)
[2020-02-22] MEDS: CYANOCOBALAMIN 500 MCG TABLET (VITAMIN B-12) PO SCH (08:30)
[2020-02-22] MEDS: CHOLECALCIFEROL 1,000 UNITS 25 MCG TAB PO SCH (08:30)
[2020-02-22] MEDS: ACETAMINOPHEN 500 MG TAB PO SCH (08:30)
[2020-02-22 09:05] LABS: BUN Creatinine Ratio 26.9 (10-20); Calcium 10.1 mg/dl (8.5-10.1); Creatinine Clr Calc Pharmacy 67.6 ml/min; Est GFR (African American) 63.6; Est GFR (Non-African American) 54.9; Potassium 3.7 mmol/L (3.5-5.1)
[2020-02-22] MEDS: clonazePAM 0.5 MG TAB PO PRN (10:21)
[2020-02-22 10:23] LABS: Estimated Average Glucose 108 mg/dl; Hemoglobin A1C 5.4 % (4.5-5.6)
--- NOTE | 2020-02-22 10:25 | Discharge Summary ---
Date of Service February 22, 2020 History of Present Illness The patient is a 55-year-old woman with a known diagnosis of bipolar disorder who was admitted last evening after she presented to the emergency department and reported that she was having worsening thoughts of wrecking her car, intentionally, to the degree that she was concerned that she could no longer control the thoughts and that she might be likely to act on them. The patient reports that she first began developing symptoms of bipolar disorder when she was approximately 16 years old. She notes that she would have discrete periods of time, often lasting for several weeks during her youth during which she would experience rapid thoughts that she had trouble following, feedback from others that she was talking too much and too fast, irritable mood that often alternated with elated mood, poor impulse control, increased energy, and decreased desire for sleep. At the time, however, neither she nor her family were aware of what was going onalthough the patient does say that her father, at least later in life, was diagnosed with bipolar disorder and/or schizoaffective disorder, bipolar type. As time progressed, the patient also experienced episodes of depression that sometimes lasted for several months. These episodes of depression were characterized by depressed mood, psychosocial withdrawal, neglect of self-care, hypersomnolence, lack of motivation, and anhedonia, and anergia. She reports that during periods of depression she essentially does nothing besides "laying in bed, and get up only to go to work, go to the bathroom, and may be get something to eatbut I kind of stop bathing or doing anything extra like cleaning the house." This time is progressed, of the patient's episodes of depression and dena have lengthened in duration, and she estimates that she has been experiencing manic symptoms, at least intermitt ently, since the beginning of the 2019. 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 However, the patient also acknowledges that she had been exhibiting manic symptoms at work for about a month before she was terminated, and is able to accept that certain behaviors in which she was engaging, such as cleaning constantly, dancing around in the day rooms in front of the senior living residents, etc. may have contributed. Loss of her job of 2-1/2 years seems to have substantially intensified the patient's mood alterations. Also, she notes that she had had an episode of lithium toxicity after an increased dose of lithium, she acknowledges that she neglected to get her lithium level measured. Subsequent to that, and evidently because of certain alterations in her renal function tests following the toxicity, lithium was discontinued in favor of Trileptal as a mood stabilizer. Also possibly c ontributing is the fact the patient has been treated with Vyvanse for binge eating disorder, and she is continue to take this during what clearly is a manic episode. The patient explains that she does not feel that Trileptal is working as a mood stabilizer for. She exhibits symptoms of tardive dyskinesia that she attributes to the use of the second generation antipsychotic medication, quetiapine, and she notes that she would prefer not to take antipsychotic medications as a mood stabilizer. Currently, the patient's symptoms included decreased sleep, increased energy, and we have to stop her from continuously cleaning the unit. Further, the patient has pressured speech and is often difficult to structure or interrupt, and there are prominent flight of ideas. Her mood alters from being elated to brief episodes of tearfulness. She explains that she had done quite well on lithium carbonate 600 mg in the morning and 300 mg in the evening "for many years," and she also notes that every once a while that she would begin to show breakthrough symptoms of dena or hypomania her dose of lithium would be increased by 150 mg a day, and then decreased again after her mood stabilized. She believes that the reason she developed lithium toxicity had to do with the fact that, according to her recollection, she continued to take the extra dose of lithium for an extended period of time and neglected to submit to a lithium level test that had been ordered. The patient, and [employer] A[employer]ST, is aware of the symptoms of lithium toxicity. She reported that in her case the main symptoms were ataxia and confusion. I also explained to the patient that other symptoms of lithium toxicity include, but are not limited to GI distress such as diarrhea, a coarse tremor that I demonstrated for her, and nystagmus. Physical Exam Vital Signs (Past 24 Hours) Last Vital Signs Temp 36.5 C 02/22/20 06:18 Pulse 59 L 02/22/20 06:19 Resp 18 02/22/20 06:18 BP 122/83 02/22/20 06:19 Pulse Ox 99 02/18/20 17:59 Principal Diagnosis Bipolar disorder type I, most recent episode manic Tardive dyskinesia Restless leg syndrome Psychiatric Data The patient was hospitalized for 4 days. On admission, she reported mood symptoms had been stable for many years on lithium, but became toxic on the medication at one point, and it was discontinued. She reported multiple other mood stabilizer trials, which were ineffective or poorly tolerated. She did not want to try any other antipsychotic medications due to her tardive dyskinesia, and after reviewing treatment options, elected to discontinue oxcarbazepine and resume lithium. Nephrology consultation from 2 years ago was reviewed, as well as her lab work over the past 3 years, and it appeared that her BUN and creatinine had returned to baseline, and GFR was 54.3. She was started on 900 mg daily and tolerated it well, with a resulting trough level after 3 days of 0.6. BMP was rechecked as well, GFR was 54.9 and creatinine 1.12, unchanged fro m admission. Vyvanse was held on admission as it was contributing to dena, and the patient reported feeling activated and increasingly manic when she took it. She was initially engaging in excessive cleaning behaviors on the unit, and was loose in conversation, but demonstrated rapid improvement in manic symptoms, and quickly became focused on multiple complaints related to hospitalization (alexis melanie that she was bored, did not like the food, and wanted to be able to go outside), and became focused on rapid discharge. She consistently denied suicidal thoughts and did not engage in self-injurious behavior. She attended and participated in groups, and manic symptoms improved throughout the course of her stay. She was observed to be sleeping well, eating adequately, and performing ADLs independently. She was able to complete her safety plan, and had a family meeting with her adult son and the social worker psychiatric on 02/21/2020. Her son attempted to focus on boundaries he would like to reinforce with the patient, for example that she would call him and tell him to call the crisis line for her, or would ask him for recommendations for her many health problems, while he feels she should contact her clinicians for that. The patient became upset by these requests, and was not able to engage in an open discussion about her patterns of behavior. They also discussed financial concerns, and the patient became tearful when talking about being fired from her job in August. Her son had offered to take over her car loan and help pay for her phone bill, and agreed to center $250 per month, which the patient said would be helpful. The patient has been working with Mala Gibson for assistance with budgeting. She was also able to verbalize a goal to increase her social supports so that she is not overly reliant on her son, and he acknowledged that he feels like the parent and that there is a role reversal in their relationship. Family therapy was recommended, and her son was open to that. After the meeting, the patient processed and stated that she felt her son was lazy and would never change, and although she identified limited support as a primary problem, when given sug gestions for ways to increase supports, she refused all of them (for example psych rehab was recommended, but she said she did not want to be around "those kind of people," and that she had no way to fit additional things into her schedule). Her son called back after the meeting and informed the social worker psychiatric that there was much more he had hoped to address during the meeting, including that he has attempted to work on the interpersonal problems with the patient but she uses her mental health problems as an excuse and he is not convinced that she wants to get healthier, noting she enjoys being in the victim/patient role. He recalled some of her severe mood episodes when he was a child, during which she was "borderline violent." He noted that she had been in a similar state when he visited recently, as she wanted to move the furniture around in her home, and became agitated when they had difficulty moving the couch. He also described manipulative behavior and attempts to get others to care for/do things for her. Day of Discharge Assessment Staff report the patient is attending and participating in groups and therapy, and although she was very talkative, was able to listen to others feedback and appeared to have insight. She completed her safety plan and discussed her triggers and different ways to cope with them. She is less irritable and reports mood is improved and more stable. She has continued to complain to multiple staff that she is bored on the unit and fears she will become depressed if she stays here too long. On my assessment, she states her mood is "oh I feel really good, I feel stable." She notes that she is "not perfect," but symptoms are much improved since admission. She denies suicidal thoughts, states she no longer feels hopeless, and thinks that being back on lithium is helping. She denies any side effects, and was advised of recommendations to take the full dose at bedtime as this confers renal protection, and due to her history of kidney problems. She believes that going off of the lithium caused her to destabilized to the point that she lost her job, which she is still upset about. She feels less hyperactive and distracted, and feels safe leaving the hospital. She reviews her plans when she leaves, including following up with her multiple outpatient clinicians. Transition of Care Transition Of Care Record: was reviewed with the patient Advance Directives Advance Directives Information Provided: Yes Advance Directives: No Mental Health Advance Directive: No Advance Directives on File: No Living Will: No Power of Director Statistical Programming: No Advance Directives Reason:: Declines as Mental Health Visit. Risk Factors Assessment Risk factors were mitigated by admission to the inpatient unit, use of medications to target mood symptoms, discontinuing medications exacerbating dena, psychoeducation about her diagnosis and the recommended treatment, involvement in groups and therapy, working on healthy coping skills and a discharge safety plan, recommending a higher level of outpatient care including psych rehab which the patient declined, recommending family therapy with her son due to their relationship strain, and the family meeting with her son and the social worker psychiatric. She has demonstrated improvement in mood symptoms, resolution of suicidal thoughts, is eating, sleeping, taking medications as prescribed, and performing ADLs independently. She is requesting discharge, and as she is no longer at acute risk of harm to herself, can be managed as an outpatient at this time. She has not endorsed thoughts to harm others, nor has she been aggressive or threatening here. Male: No : Yes Do You Have Access To A Gun?: No Health Problems: Yes Mental Health Diagnoses: Yes Substance Use Disorders: No Previous Attempt: Yes Previous Attempt; Highly Lethal: Yes Previous Attempt; Planned: Yes Previous Attempt; Didn't Tell Anyone: No Family History of Suicide: No Previous Psychiatric Hospitalization: Yes Hopelessness: No Smoker: No Protective Factors Assessment Voodoo Beliefs: No : No Responsible for Young Children: No Employed: Yes ([employer]) Stable Relationships: Yes Supportive Family: Yes Good Rapport with Provider: Yes Absence of Any Risk Factors Above: No Tobacco Cessation at Discharge Tobacco Cessation Medication Prescribed at Discharge: Not Applicable/Non-Smoker Total Time Total Time Spent: Greater Than 30 Minutes Total Time Includes: Examination of the patient, Discharge Planning and Medication Reconciliation Discharge Data Lab Results 02/18/20 02/18/20 02/18/20 16:58 16:58 17:26 WBC 5.89 RBC 5.24 Hgb 13.9 Hct 43.1 MCV 82.3 MCH 26.5 MCHC 32.3 RDW Std Deviation 40.6 RDW Coeff of Juan [place] 13.5 Plt Count 249 MPV 11.3 H Immature Gran % (Auto) 0.2 Neut % (Auto) 67.0 Lymph % (Auto) 21.9 [place] % (Auto) 7.3 Eos % (Auto) 3.1 Baso % (Auto) 0.5 Neut # (Auto) 3.95 Lymph # (Auto) 1.29 [place] # (Auto) 0.43 Eos # (Auto) 0.18 Baso # (Auto) 0.03 Immature Gran # (Auto) 0.01 Sodium Potassium Chloride Carbon Dioxide Anion Gap BUN Creatinine Est Cr Clr Drug Dosing Est GFR ( Amer) Est GFR (Non-Af Amer) BUN/Creatinine Ratio Glucose POC Glucose Calcium Total Bilirubin AST ALT Alkaline Phosphatase Total Protein Albumin Globulin Albumin/Globulin Ratio TSH Urine Color Yellow Urine Appearance Clear Urine pH 8.0 H Ur Specific [place] 1.007 Urine Protein Negative Urine Glucose (UA) Negative Urine Ketones Negative Urine Blood Negative Urine Nitrite Negative Urine Bilirubin Negative Urine Urobilinogen Negative Ur Leukocyte Esterase Negative Salicylates Urine Opiates Screen Neg Ur Methadone, Qual Neg Acetaminophen Urine Barbiturates Neg Ur Phencyclidine (PCP) Neg U Amphetamin/Meth Scrn Neg MDMA (Ecstasy) Screen Neg U Benzodiazepines Scrn Neg [place] Ur Cocaine Metabolite Neg U Marijuana (THC) Screen Neg Ethyl Alcohol mg/dL 02/18/20 02/18/20 02/18/20 17:26 17:26 17:26 WBC RBC Hgb Hct MCV MCH MCHC RDW Std Deviation RDW Coeff of [place] Plt Count MPV Immature Gran % (Auto) Neut % (Auto) Lymph % (Auto) [place] % (Auto) Eos % (Auto) Baso % (Auto) Neut # (Auto) Lymph # (Auto) [place] # (Auto) Eos # (Auto) Baso # (Auto) Immature Gran # (Auto) Sodium 141 Potassium 4.0 Chloride 112 H Carbon Dioxide 26 Anion Gap 4.0 BUN 22 H Creatinine 1.13 Est Cr Clr Drug Dosing 67.4 Est GFR ( Amer) 62.9 Est GFR (Non-Af Amer) 54.3 BUN/Creatinine Ratio 19.6 Glucose 72 POC Glucose Calcium 9.9 Total Bilirubin 0.2 AST 28 ALT 42 Alkaline Phosphatase 187 H Total Protein 7.5 Albumin 3.8 Globulin 3.7 Albumin/Globulin Ratio 1.0 TSH 0.722 Urine Color Urine Appearance Urine pH Ur Specific [place] Urine Protein Urine Glucose (UA) Urine Ketones Urine Blood Urine Nitrite Urine Bilirubin Urine Urobilinogen Ur Leukocyte Esterase Salicylates < 1.7 L Urine Opiates Screen Ur Methadone, Qual Acetaminophen < 2 L Urine Barbiturates Ur Phencyclidine (PCP) U Amphetamin/Meth Scrn MDMA (Ecstasy) Screen U Benzodiazepines Scrn [place] Ur Cocaine Metabolite U Marijuana (THC) Screen Ethyl Alcohol mg/dL < 3.0 02/20/20 02/20/20 02/22/20 11:36 12:32 08:20 WBC RBC Hgb Hct MCV MCH MCHC RDW Std Deviation RDW Coeff of [place] Plt Count MPV Immature Gran % (Auto) Neut % (Auto) Lymph % (Auto) [place] % (Auto) Eos % (Auto) Baso % (Auto) Neut # (Auto) Lymph # (Auto) [place] # (Auto) Eos # (Auto) Baso # (Auto) Immature Gran # (Auto) Sodium Potassium Chloride Carbon Dioxide Anion Gap BUN Creatinine Est Cr Clr Drug Dosing Est GFR ( Amer) Est GFR (Non-Af Amer) BUN/Creatinine Ratio Glucose POC Glucose 63 L* 78 Calcium Total Bilirubin AST ALT Alkaline Phosphatase Total Protein Albumin Globulin Albumin/Globulin Ratio TSH Urine Color Urine Appearance Urine pH Ur Specific [place] Urine Protein Urine Glucose (UA) Urine Ketones Urine Blood Urine Nitrite Urine Bilirubin Urine Urobilinogen Ur Leukocyte Esterase Salicylates Urine Opiates Screen Ur Methadone, Qual Acetaminophen Urine Barbiturates Ur Phencyclidine (PCP) U Amphetamin/Meth Scrn MDMA (Ecstasy) Screen U Benzodiazepines Scrn [place] 0.6 Ur Cocaine Metabolite U Marijuana (THC) Screen Ethyl Alcohol mg/dL 02/22/20 08:20 WBC RBC Hgb Hct MCV MCH MCHC RDW Std Deviation RDW Coeff of [place] Plt Count MPV Immature Gran % (Auto) Neut % (Auto) Lymph % (Auto) [place] % (Auto) Eos % (Auto) Baso % (Auto) Neut # (Auto) Lymph # (Auto) [place] # (Auto) Eos # (Auto) Baso # (Auto) Immature Gran # (Auto) Sodium 144 Potassium 3.7 Chloride 114 H Carbon Dioxide 23 Anion Gap 7.0 BUN 30 H Creatinine 1.12 Est Cr Clr Drug Dosing 67.6 Est GFR ( Amer) 63.6 Est GFR (Non-Af Amer) 54.9 BUN/Creatinine Ratio 26.9 H Glucose 85 POC Glucose Calcium 10.1 Total Bilirubin AST ALT Alkaline Phosphatase Total Protein Albumin Globulin Albumin/Globulin Ratio TSH Urine Color Urine Appearance Urine pH Ur Specific [place] Urine Protein Urine Glucose (UA) Urine Ketones Urine Blood Urine Nitrite Urine Bilirubin Urine Urobilinogen Ur Leukocyte Esterase Salicylates Urine Opiates Screen Ur Methadone, Qual Acetaminophen Urine Barbiturates Ur Phencyclidine (PCP) U Amphetamin/Meth Scrn MDMA (Ecstasy) Screen U Benzodiazepines Scrn [place] Ur Cocaine Metabolite U Marijuana (THC) Screen Ethyl Alcohol mg/dL Hospital Course (1) Bipolar 1 disorder: 02/19/20 -The [facility]. She has been placed on suicide precautions and is being closely monitored. We have also referred her for individual, group, and activity therapies. -Currently, the patient is exhibiting clear symptoms of dena including pressured speech, flight of ideas, and emotional lability that varies from elated mood to tearfulness. Mixed with her dena is the mood incongruent symptom of suicidal ideation, currently with plan and at least ambivalent intent. Patient reports that she chronically has suicidal thoughts and has had them for most of her life. However, when manic she indicates that her impulse control is diminished and she worries that she will actually act on 1 of the thoughts. -The patient has previously been given a diagnosis of stage III renal disease. However, a nephrology consult of 2018 does not recommend stopping lithium, and her current serum creatinine level is actually lower than it was in 2018. There is a history of lithium toxicity, which, according the patient, precipitated the decision to discontinue lithium. However, she reports that she has been stable on lithium for mood a number of years and feels that it is by far the best medicine in terms of managing her mood alterations. After carefully discussing the risks of lithium carbonate including, but not limited to renal impairment, the patient and the treatment team agreed that the most appropriate treatment at this point is to resume lithium carbonate. We all agree that in her case the risk is outweighed by the anticipated benefit, and we will monitor her lithium levels. She is also been taught and is able to correctly repeat the symptoms of lithium toxicity. -We will begin lithium carbonate 600 mg in the morning and 300 mg in the evening and check her serum lithium level in 3 days. -Patient is currently taking the stimulant medication Vyvanse. The patient has been advised that Vyvanse is known to precipitate or worsen symptoms during a manic episode, particularly in the absence of a mood stabilizer, and she agrees that the best course of action at this point is to discontinue stimulant medications, specifically Vyvanse, at least until her mood has been stabilized. 02/19 - Continue lithium 600mg qAM and 300mg qHS - patient was offered once daily dosing, as there is evidence to suggest this is more renal protective that BID dosing. 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 Will discontinue Trileptal since patient feels it had been ineffective, and lithium is being resumed. - Added BMP to lithium level blood work ordered for 02/21 - to check kidney function - Pt continues to be labile, tangential, and disorganized - Schedule family meeting with son when appropriate 02/20 - Continue current medication regimen - [place] level, BMP, and HgbA1c ordered for tomorrow morning - Pt seems somewhat less labile today, but continues to be disorganized and tangential - Pt had a spontaneous family meeting with son today, reportedly had difficulty understanding and respecting son's boundaries - Will attempt to engage additional outpatient supports in treatment, specifically patient's case worker 02/21 -[place] level 0.6, BMP notable for BUN 30, creatinine 1.12, GFR 54.9 (unchanged from admission). Patient advised of recommendations to take lithium 900 mg at bedtime for renal protection. Recommend close monitoring of kidney function and possibly a return to see the tobacco sorter if any abnormalities are detected. Reviewed lab work and recommendations with patient. -Follow-up at [place] for medication management, with [facility] at [facility] for therapy, and with her case worker. (2) Tardive dyskinesia: 02/18 -The patient has abnormal involuntary movements that involve her head, neck, oral musculature, and tongue. She notes that she is fully aware of these abnormal movements and says that they get worse when she is anxious. The patient also says that she was diagnosed with tardive dyskinesia after she was offered a trial of quetiapine, although she also indicates that she has taken other antipsychotic medications. -The patient notes that her symptoms of tardive dyskinesia are not particularly troubling to her most the time, but, as above, worsen while under stress and anxiety. She has been advised that there are medications that can be used to treat tardive dyskinesia, but these are not currently available at the hospital. (3) Restless leg syndrome: 02/18 -The patient reports that she carries a diagnosis of restless leg syndrome and normally takes the medication Requip for her restless leg symptoms. She also takes gabapentin, but she says that she is not able to take a high enough dose of this medication at bedtime to address her restless legs because doses of gabapentin above 300 mg caused excess sedation. Mental Health & Subst Abuse Tx Psychiatrist Name of Psychiatrist: [facility] Linda Yang Psychiatrist's Date of Appointment with Psychiatrist: 03/04/20 Time of Appointment with Psychiatrist: 12:00 p.m. Psychiatric Appointment Comment: [id number] [facility] [place] Therapist Name of Therapist: [facility] Therapist's Date of Therapist Appointment: 02/29/20 Time of Therapist Appointment: 10:00 a.m. Therapy Appointment Comment: Via telephone Bolt Man Name of Bolt Man: [facility] [place] Anaya Phone Number for Bolt Man: [phone] Date of Appointment with Bolt Man: 02/25/20 Time of Appointment with Bolt Man: 11:00 am Case Management Appointment Comment: Will come see you Post Discharge Appointments Primary Care Physician Name Of Family Doctor: [place] - Dr. Cerrato [facility] Date of Appointment with PCP: 03/16/20 Time of Appointment with PCP: 3:40 p.m. Provider Appointment Comment: [id number], [place] [address] Smoking Cessation Counseling Tobacco Cessation Medication Prescribed at Discharge: Not Applicable/Non-Smoker Contact Information Discharge Discharge [address]: [address] [place] [id number] Discharge Plan Discharge Items Patient Disposition: Home - Self-Care Reason For Visit: BIPOLAR DISORDER Discharge Diagnosis: Bipolar disorder type I, most recent episode manic Activity: Per Instructions section Non-emergency contact: Primary Care Provider, Psychiatrist, Therapist and Gynecology Teacher Call non-emergency contact if: you have any medication questions and your symptoms worsen Follow-up/Referrals: Augustin Cerrato, [Primary Care Provider] - Diet: Regular Addtl Attending Provider Instructions: SPECIAL CARE INSTRUCTIONS: 1. Follow through with your scheduled aftercare appointments. If unable to keep an appointment, please call to reschedule. 2. Take your medication only as prescribed. Medication should not be changed or stopped without the approval of your doctor. In the event of worsening symptoms or concerns about side effects, contact your doctor immediately. 3. Utilize new healthy coping skills, anger management skills, and stress management skills learned during your hospitalization. Journal feelings and process them with a support person. Identify stressors or situations that may result in relapse, deterioration or inappropriate behaviors and develop a plan to deal with those issues. 4. If your coping skills are ineffective and you are in crisis, contact your outpatient providers for direction. If unable to reach your providers, please call the CAN HELP LINE AT or go to the closest Emergency Room. 5. Avoid alcohol and un-prescribed drugs. 6. You have been provided with the Mental Health Advance Directives Pamphlet for your review. AFTERCARE APPOINTMENTS: * Please call your insurance company prior to your scheduled appointment to confirm your aftercare providers are covered. Take your insurance information to your appointments. WHO TO CALL AND WHEN: Medical Emergencies: For questions or emergencies related to your hospital stay, please contact the Inpatient Behavioral Health Unit at [phone]. A makeup sales consultant is on-call 18/02 for the Behavioral Health Unit for emergencies At any time you feel your situation is an emergency, you may also call 911 immediately. Your Doctors Instructions noted above were prepared by provider Martha Ceja MD. Pending Studies at Discharge: No Stand-Alone Forms: [facility], Smoking Cessation, Suicide Prevention Resources Medications and DC Order Prescriptions: New lithium carbonate 300 mg Tablet 900 mg PO HS Qty: 45 RF: 0 Continued montelukast [Singulair] 10 mg tablet 10 mg PO HS Qty: 90 RF: 1 levothyroxine 100 mcg tablet 100 mcg PO QAM Qty: 30 RF: 5 ropinirole [Requip] 0.25 mg tablet 0.25 mg PO TID Qty: 90 RF: 2 albuterol sulfate [Ventolin HFA] 90 mcg/actuation HFA aerosol inhaler 2 puff INHALATION Q4 PRN (Reason: Shortness Of Breath Or Wheezing) Qty: 18 RF: 1 hydroxyzine HCl 25 mg tablet See Rx Instructions PO .COMPLEX RF: 0 acetaminophen 500 mg Tablet 1,000 mg PO BID RF: 0 gabapentin 300 mg Capsule 300 mg PO BID RF: 0 clonazepam 0.25 mg PO BID PRN (Reason: Anxiety) RF: 0 sertraline [Zoloft] 100 mg tablet 200 mg PO DAILY RF: 0 omeprazole 40 mg capsule,delayed release(DR/EC) 40 mg PO HS RF: 0 baclofen 5 mg tablet 5 mg PO TID PRN (Reason: Back Pain) RF: 0 clonazepam [Klonopin] 1 mg tablet 1 mg PO HS PRN (Reason: Anxiety) RF: 0 cyanocobalamin (vitamin B-12) [Vitamin B-12] 500 mcg Tablet 500 mcg PO DAILY RF: 0 topiramate [Topamax] 50 mg tablet 50 mg PO BID RF: 0 cholecalciferol (vitamin D3) [Vitamin D3] 5,000 unit Tablet 2,000 unit PO DAILY RF: 0 Discontinued lisdexamfetamine 20 mg capsule 20 mg PO QAM RF: 0 oxcarbazepine 150 mg PO BID RF: 0 Discharge Orders: Discharge Order (Routine); Ordered 02/22/20 Ordered By: Martha Ceja Admission Data Admit Date/Time: 02/18/20 21:31 Attending Provider: Martha Ceja Admit Provider: Emmanuel Golden I. Primary Care Provider: Augustin Cerrato Other Interventions: PSY Interdisciplinary Discharge Planning Last Done: 02/22/20 09:55 Coding Level of Care Code 88922 D/C day mgmt > 30 min Diagnoses Bipolar 1 disorder F31.9 Tardive dyskinesia G24.01 Restless leg syndrome G25.81
== END 2020-02-22 11:57 | disposition home or self-care (01) | DRG 885 ==
LOC: ED 16:23 → 3S 21:31

== ENCOUNTER 2024-08-29 18:22 | Inpatient (IN) ==
--- NOTE | 2024-08-29 18:56 | Emergency Department Note ---
History of Present Illness General Chief complaint: Confusion Stated complaint: AMS Time Seen by Provider: 08/29/24 18:26 Source: family History of Present Illness Provider complaint: Altered mental status confusion 5-year-old female presents emergency department for altered mental status and confusion. Patient's boyfriend is here. He states he spoke with the patient yesterday and she sounded a little strange but then today he found her confused and tremoring so he called 911. No reported falls or traumas. Home Medications Medication Instructions Recorded Confirmed Type sertraline 100 mg tablet (Zoloft) 200 mg PO QAM 02/18/20 08/06/24 History cetirizine 10 mg tablet (Zyrtec) 10 mg PO DAILY PRN allergy 04/11/21 08/06/24 Rx symptoms #30 tabs cyanocobalamin (B12)-cobamamide 1 tab sublingual DAILY 03/13/22 08/06/24 History 5,000 mcg-100 mcg sublingual tablet lithium carbonate 300 mg capsule 600 mg PO QPM 08/31/22 08/06/24 History lithium carbonate 150 mg capsule 300 mg PO .am 01/16/23 08/06/24 History Spacer for Inhaler #1 ea 07/09/23 08/06/24 Rx cholecalciferol (vitamin D3) 50 50 mcg PO .COMPLEX 07/16/23 08/06/24 History mcg (2,000 unit) capsule albuterol sulfate 90 mcg/actuation See Rx Instructions .Route 10/09/23 08/06/24 Rx breath activated powder inhaler .COMPLEX #1 insert (ProAir RespiClick) lamotrigine 25 mg tablet 150 mg PO BID 11/11/23 08/06/24 History omeprazole 40 mg capsule,delayed 40 mg PO BID #180 caps 11/12/23 08/06/24 Rx release amantadine HCl PO BID 11/13/23 08/06/24 History zoledronic acid 5 mg/100 mL in ea IV 11/13/23 08/06/24 History mannitol 5 %-water intravenous piggybck (Reclast) montelukast 10 mg tablet See Rx Instructions .Route 01/14/24 08/06/24 Rx .COMPLEX #90 tabs ipratropium bromide 21 mcg (0.03 See Rx Instructions .Route 02/07/24 08/06/24 Rx %) nasal spray .COMPLEX #30 mL carbidopa 25 mg-levodopa 100 mg 1 tab PO .COMPLEX PRN breakthrough 06/29/24 08/06/24 Rx tablet RLS sx 30 days #60 tabs carbidopa ER 50 mg-levodopa 200 mg 1 tab PO TID 30 days #90 tabs 06/29/24 08/06/24 Rx tablet,extended release levothyroxine 112 mcg tablet See Rx Instructions .Route 06/29/24 08/06/24 Rx .COMPLEX #108 tabs linaclotide 290 mcg capsule 290 mcg PO DAILY #90 caps 07/30/24 08/06/24 Rx (Linzess) clonidine HCl 0.1 mg tablet 0.1 mg PO HS 08/06/24 08/06/24 History gabapentin 300 mg capsule 300 mg PO BID 30 days #60 caps 08/06/24 08/06/24 Rx topiramate 25 mg tablet 25 mg PO QAM #30 tabs 08/19/24 Rx topiramate 50 mg tablet 50 mg PO QPM 08/19/24 History Zepbound 7.5 mg/0.5 mL 7.5 mg (0.5 mL) subcut Q7D #2 mL 08/26/24 Rx subcutaneous pen injector (tirzepatide (weight loss)) Allergies Allergy/AdvReac Type Severity Reaction Status Date / Time budesonide Allergy Unknown Unknown Verified 08/06/24 13:02 cyclobenzaprine Allergy Unknown severe Verified 08/06/24 13:02 depression latex Allergy Unknown lehman; Verified 08/06/24 13:02 leaves a vani on skin NSAIDS (Non-Steroidal Allergy Unknown Gastrointestinal Verified 08/06/24 13:02 Anti-Inflamma Upset psyllium [From Metamucil] Allergy Unknown Wheezing Verified 08/06/24 13:02 quetiapine [From Seroquel] Allergy Unknown tardive Verified 08/06/24 13:02 dyskinesia strawberry Allergy Unknown Hives Verified 08/06/24 13:02 prednisone AdvReac Nightmare Verified 08/06/24 13:02 Past Med/Surg History Problem List (Updated 08/29/24 @ 20:14 by Vu Casey MD) SVT (supraventricular tachycardia) (Acute) AMS (altered mental status) (Acute) UTI (urinary tract infection) (Acute) Scoliosis Tremor Carpal tunnel syndrome on both sides Cervical radicular pain 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, with mood symptoms Hypothyroidism (acquired) Osteoporosis Hyperparathyroidism, primary Lab test negative for COVID-19 virus (Acute) Back pain Hyperparathyroidism (Acute) Osteoporosis (Acute) Bloating Constipation Abdominal distention Dysphagia Atrophic vaginitis Obesity Sleep disorder, shift-work Sleep apnea Raynauds phenomenon Sleep-disordered breathing Perimenopausal atrophic vaginitis Paresthesia of both lower extremities Lumbosacral radiculopathy Neuropathy Insomnia IT band syndrome Cough (Acute) Dyspareunia (Acute) Esophageal reflux (Acute) Extrinsic asthma (Acute) Iron deficiency anemia secondary to inadequate dietary iron intake (Acute) Lower back pain (Acute) Menorrhagia (Acute) Vitamin B12 deficiency (Acute) Vitamin D deficiency (Acute) Ventral hernia with gangrene and obstruction Anxiety (Acute) Restless leg syndrome (Acute) Hypothyroidism (Acute) Anemia Hypoxemia (Acute) SAYRA positive Medical History Stomach problems GI EVAL/TESTING DR MONDRAGON - RECENT TESTING PER PT: COLONOSCOPY/ENDOSCOPY/UPPER GI TO DUODENUM NO SIGNIFICANT FINDINGS PER PT UPCOMING KEEPER HEAD APPOINTMENT Sleep apnea BORDERLINE, NO DEVICE WAS RECOMMENDED Iron deficiency anemia 3 IV IRON INFUSIONS - MOST RECENT LAST WEEK Thrush, oral APPROX 3 X OVER THE PAST 6 MON & CURRENT Restless leg syndrome GERD (gastroesophageal reflux disease) UTI symptoms states has occ symptoms - DENIES CURRENT SYMPTOMS Levoscoliosis 25 degree lumbar L1-4 Lumbar facet joint syndrome Lumbar spondylosis Incisional hernia of anterior abdominal wall without obstruction or gangrene ? Allergic rhinitis due to pollen History of anesthesia reaction difficulty waking up with gastric bypass sx Osteoarthritis Sciatic leg pain left Chronic back pain Chronic kidney disease, stage 3 Prediabetes PT NOT SURE Depression Anxiety Tardive dyskinesia HX Bipolar 1 disorder PT NOT SURE IF 1 OR 2 Asthma inhaler prn- well controlled - LAST USE PRN INHALER 4-5 DAYS AGO D/T WEATHER Surgical History S/P parathyroidectomy S/P hernia repair S/P cataract extraction left History of endoscopy History of colonoscopy History of section History of dilatation and curettage History of endometrial ablation History of bilateral tubal ligation History of carpal tunnel surgery of right wrist History of carpal tunnel surgery of left wrist x2 History of cholecystectomy History of gastric bypass History of tonsillectomy Family History Brother Family history of diabetes mellitus Diabetes Hypertension Father Family history of diabetes mellitus Diabetes Heart disease Hypertension Bipolar 1 disorder Aunt Family history of diabetes mellitus Grandfather (Paternal) Family history of diabetes mellitus Grandmother (Paternal) Family history of diabetes mellitus Cancer Abdominal aneurysm Mother Asthma Heart disease Hypertension Environmental allergies Grandmother (Maternal) Ovarian cancer Grandfather (Maternal) Lung cancer Other No family history of adverse response to anesthesia No family history of bleeding disorder Denies family history of Prostate cancer Myocardial infarction Breast cancer Colorectal cancer Social History Smoking Status: Unknown if ever smoked Tobacco Type: Declines Age Started Using Tobacco: 17; Age Quit Using Tobacco: 34; packs per day: 0.25; Cigarettes Per Day: HX SMOKED FOR A SHORT TIME; Second Hand Exposure: No; Do You Dip or Chew Tobacco: No; Hx Alcohol Use: No Hx Substance Use: No Preferred Language: Cuban Communication Ability: Effective Visual Impairment: Diminished Hearing Ability: Normal Duplex Trimmer Required: No Beliefs That Will Affect Care: None marital status: Single Current Living Situation: Alone Current Living Situation Comment: 2 [address] current occupational status: employed 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 How many Children do You have: 1 Feels Safe at Home: Yes Childhood Exposure to Second-Hand Smoke: Yes Diet: regular Diet Comment: regular caffeine: Yes during the past year weight has: decreased > 10 lbs Dental Care, Regularly: Yes Physical Activity Frequency: 3-4 Times per Week Physical Activity Frequency Comment: PT at home and fit for play Seatbelt Use: always Sunscreen Use: Yes Assistive Devices: Cane and Glasses Physical Exam Vital Signs Vital Signs - 24 hr 08/29/24 18:38 08/29/24 18:47 08/29/24 18:47 Temperature 37.0 C Temperature Source Oral Pulse Rate 112 H 106 H Pulse Rate from SpO2 Sensor Respiratory Rate 18 Blood Pressure 140/108 H Blood Pressure Mean 118 Pulse Oximetry 100 Oxygen Delivery Method Room Air Room Air Oxygen Flow Rate Sepsis Recent Fever Within 48 Hours No Sepsis New/Unexplained Change in Mental Status Yes Sepsis Action Taken by Nursing Physician Notified 08/29/24 18:58 08/29/24 19:15 08/29/24 19:24 Temperature Temperature Source Pulse Rate 169 H Pulse Rate from SpO2 Sensor Respiratory Rate Blood Pressure 129/86 109/83 Blood Pressure Mean 103 89 Pulse Oximetry Oxygen Delivery Method Oxygen Flow Rate Sepsis Recent Fever Within 48 Hours Sepsis New/Unexplained Change in Mental Status Sepsis Action Taken by Nursing 08/29/24 19:28 08/29/24 19:30 08/29/24 19:30 Temperature Temperature Source Pulse Rate 160 H 93 H Pulse Rate from SpO2 Sensor 168 H 93 H Respiratory Rate 17 Blood Pressure 131/76 125/75 Blood Pressure Mean 89 87 Pulse Oximetry 97 Oxygen Delivery Method Oxygen Flow Rate Sepsis Recent Fever Within 48 Hours Sepsis New/Unexplained Change in Mental Status Sepsis Action Taken by Nursing 08/29/24 19:45 08/29/24 20:00 Temperature Temperature Source Pulse Rate 93 H 93 H Pulse Rate from SpO2 Sensor 95 H Respiratory Rate 16 Blood Pressure 110/77 124/75 Blood Pressure Mean 84 103 Pulse Oximetry 98 99 Oxygen Delivery Method Nasal Cannula Oxygen Flow Rate 2 Sepsis Recent Fever Within 48 Hours Sepsis New/Unexplained Change in Mental Status Sepsis Action Taken by Nursing Physical Exam HENT: Exam performed. -Head: Normocephalic and atraumatic. EYES: Conjunctivae and EOM are normal. Pupils are equal, round, and reactive to light. Right eye exhibits no discharge. Left eye exhibits no discharge. No scleral icterus. NECK: Normal range of motion. Neck supple. No JVD present. CV: Tachycardic rate, regular rhythm, normal heart sounds and intact distal pulses. There is no peripheral edema. Palpable radial pulses bue. PULM/CHEST: Rhonchi bilaterally ABD: The abdomen is soft. MUSC/SKEL: Normal range of motion. There is no peripheral edema, tenderness or deformity. LYMPH: No cervical adenopathy. NEURO: Patient is tremulous. Patient is not oriented to person place or time. Motor and sensation grossly intact. GCS 14 (E:4, V:4, M:6) Course Course 1825: The patient was evaluated in room C6. A complete history and physical exam was performed Cardiac monitoring: An order was placed for continuous cardiac monitoring. The monitor shows a rate of 100 with sinus rhythm interpreted by me 1900: Called to bedside by nursing. Patient went into SVT. 1 mg of Ativan ordered for the patient and 6 mg of adenosine was pushed on the patient which broke her SVT. Will continue to monitor patient. 1921: Called back to bedside by nursing as patient went back into SVT. Blood pressure stable. An additional 12 mg of adenosine was pushed on the patient a second liter of fluid was started and the patient. Status post the second dose of 12 mg adenosine the patient went into a sinus rhythm again. Will continue to monitor patient. Labs show leukocytosis of 18 CT of the head chest x-ray negative. Labs are otherwise unremarkable with exception of a creatinine of 1.59. 2011: Vital signs stable. Patient is resting comfortably. Urinalysis is concerning for UTI. Rocephin ordered for the patient patient would be admitted to [facility]. Administered Medications Discontinued Medications Sodium Chloride (Nss) 1,000 mls @ 999 mls/hr IV .Q1H1M SYLVIE Stop: 08/29/24 19:45 Last Admin: 08/29/24 18:57 Dose: 999 mls/hr Documented By: MEDARDO Critical Care Time Critical Care Time: Yes Total Critical Care Time: 60 I have personally spent greater than 60 minutes of critical care time in the direct management of this patient. This includes bedside care, interpretation of diagnostic studies, and testing, discussion with consultants, patient, and family members, and other required patient management activities. This 60 minutes is in excess of all separately billable procedures. Medical Decision Making Laboratory Data Attestation: I reviewed the patient's lab results. 08/29/24 18:40 08/29/24 18:40 Lab Results 08/29/24 08/29/24 Range/Units 18:40 19:36 WBC 18.12 H (4.8-10.8) K/ul RBC 5.83 H (4.20-5.40) M/uL Hgb 17.1 H (12.0-16.0) g/dl Hct 49.5 H (37.0-47.0) % MCV 84.9 (80.0-100.0) fL MCH 29.3 (25.0-34.0) pg MCHC 34.5 (32.0-36.0) g/dL RDW Std Deviation 36.2 L (36.4-46.3) fL RDW Coeff of [place] 11.8 (11.5-14.5) % Plt Count 345 (130-400) K/uL MPV 12.4 (9.4-12.4) fL Immature Gran % (Auto) 0.6 % Neut % (Auto) 93.7 % Lymph % (Auto) 2.2 % [place] % (Auto) 3.1 % Eos % (Auto) 0.1 % Baso % (Auto) 0.3 % Neut # (Auto) 17.00 H (1.40-6.50) K/uL Lymph # (Auto) 0.39 L (1.20-3.40) K/uL [place] # (Auto) 0.56 (0.11-0.59) K/uL Eos # (Auto) 0.01 (0.00-0.50) K/uL Baso # (Auto) 0.06 (0.00-0.20) K/uL Immature Gran # (Auto) 0.10 (0.01-0.20) K/uL RBC Morphology Unremarkable PT 11.6 (9.0-12.0) Seconds INR 1.1 (0.9-1.1) VBG pH 7.47 H (7.36-7.41) VBG pCO2 22 L (38-50) mmHg VBG pO2 54 mmHg VBG HCO3 16 mmol/L VBG O2 Saturation 86.0 % VBG Base Excess -5.6 mEq/L Sodium 134 L (136-145) mmol/L Potassium 4.1 (3.5-5.1) mmol/L Chloride 100 (98-107) mmol/L Carbon Dioxide 18 L (21-32) mmol/L Anion Gap 16 H (3-11) BUN 25 H (6-23) mg/dl Creatinine 1.59 H (0.6-1.2) mg/dl Est Cr Clr Drug Dosing 40.6 ml/min eGFR 36.97 BUN/Creatinine Ratio 15.7 (10-20) Glucose 149 H (70-99(Fasting)) mg/dl Lactate 1.9 (0.4-2.0) mmol/L Calcium 10.2 (8.6-10.3) mg/dl Magnesium 2.4 (1.7-2.4) mg/dl Total Bilirubin 0.7 (0.2-1.0) mg/dl Direct Bilirubin 0.1 (0-0.2) mg/dl AST 18 (13-39) U/L ALT 14 (7-52) U/L Alkaline Phosphatase 185 H (34-104) U/L Troponin I High Sens 18.6 H (0-14) pg/ml Total Protein 7.8 (6.0-8.3) gm/dl Albumin 4.6 (3.4-5.0) gm/dl Procalcitonin 0.08 (0-0.5) ng/ml Urine Color Yellow Urine Appearance Clear (Clear) Urine pH 6.5 (4.5-7.5) Ur Specific [place] 1.007 (1.000-1.030) Urine Protein Trace H (Negative) Urine Glucose (UA) Negative (Negative) Urine Ketones 1+ H (Negative) Urine Blood Negative (Negative) Urine Nitrite Positive A (Negative) Urine Bilirubin Negative (Negative) Urine Urobilinogen Negative (Negative) Ur Leukocyte Esterase Trace H (Negative) Urine WBC (Auto) 0-5 (0-5) /hpf Urine RBC (Auto) 0-2 (0-2) /hpf U Hyaline Cast (Auto) 3-5 H (0-2) /lpf U Epithel Cells (Auto) 0-2 (0-2) /hpf Urine Bacteria (Auto) 3+ H (None Seen) [place] 1.1 (0.6-1.2) mmol/L Adenovirus (PCR) Not Detected (NotDetected) B. pertussis DNA (PCR) Not Detected (NotDetected) B.parapertussis DNA PCR Not Detected (NotDetected) C. pneumoniae DNA (PCR) Not Detected (NotDetected) Coronavirus OC43 (PCR) Not Detected (NotDetected) Coronavirus HKU1 (PCR) Not Detected (NotDetected) Coronavirus 229E (PCR) Not Detected (NotDetected) SARS-CoV-2 (PCR) Not Detected (NotDetected) Coronavirus NL63 (PCR) Not Detected (NotDetected) Human Metapneumovir PCR Not Detected (NotDetected) Influenza Type A (PCR) Not Detected (NotDetected) Influenza Type B (PCR) Not Detected (NotDetected) M. pneumoniae (PCR) Not Detected (NotDetected) Parainfluenza 1 (PCR) Not Detected (NotDetected) Parainfluenza 2 (PCR) Not Detected (NotDetected) Parainfluenza 3 (PCR) Not Detected (NotDetected) Parainfluenza 4 (PCR) Not Detected (NotDetected) RSV (PCR) Not Detected (NotDetected) Entero/Rhino (PCR) Not Detected (NotDetected) Imaging Data Attestation: I personally reviewed and interpreted this imaging study as follows: My Impression: CT head: No ICH Chest x-ray: Chest x-ray negative. Airway clear. No pneumothorax. No consolidation. No cardiomegaly or cephalization.. No free air under the diaphragm. No fractures of the skeletal structures. Radiologist's Impression: Chest X-Ray 08/29/24 18:34 EXAM: Portable AP chest radiograph TECHNIQUE: AP portable radiograph of the chest was obtained. INDICATION: Shortness of breath. Concern for sepsis Comparison: Chest radiograph December 29, 2022 FINDINGS: LINES and TUBES: None CARDIOVASCULAR: Cardiac silhouette is stably and mildly enlarged in size. LUNGS/PLEURA: No focal consolidation identified. No significant pleural fluid. No discernible pneumothorax. OSSEOUS/OTHER: No displaced acute osseous process identified. IMPRESSION: No radiographic evidence of acute cardiopulmonary process. Electronically signed by Neftaly Sunshine 08-29-2024 7:[address] 08/29/24 18:34 Exam: CT scan of the head without contrast only: Reason for exam: Altered mental status COMPARISON: 10/09/2021. FINDINGS: Study is somewhat limited by motion however no definite evidence of intracranial mass, hemorrhage or edema is seen at this time. Ventricular size normal without midline shift or extra-axial blood/fluid collection. Mastoids remain well-aerated. Visualized paranasal sinuses remain well aerated. No acute process of the bony calvarium is identified. IMPRESSION: 1. Study limited by motion. 2. Within these limitations no gross evidence of acute intracranial process seen on unenhanced head CT study at this time. Electronically signed by Collin Mora 08-29-2024 7:04 PM ECG Data Attestation: I personally reviewed and interpreted this ECG as follows: Additional Comments: EKG #1 at 1839: Sinus tachycardia with rate of 108. No ST elevation or ST depression. There is a great deal of baseline artifact secondary to patient's tremor EKG #2 at 1910: SVT with a rate of 166. QRS [address] elevation or ST depression. There is a great deal of baseline artifact secondary to patient's tremor EKG #3 at 1913 status post adenosine 6 mg IV push: Sinus tachycardia with rate of 101. MT QRS and QTc intervals within normal limits no ST elevation or ST depression. EKG #4 at 1924: SVT with rate 161. QRS and QTc intervals within normal limits. No ST elevation or ST depression. Great amount of artifact secondary to patient's tremor EKG #5 at 1926: SVT with rate of 159. QRS and QTc intervals within normal limits. No ST elevation or ST depression. EKG #6 at 1928 status post adenosine 12 mg IV push: Sinus rhythm with rate 94. MT QRS and QTc intervals within normal limits. No ST elevation or ST depression MDM Narrative 182: The patient was evaluated in room C6. A complete history and physical exam was performed Cardiac monitoring: An order was placed for continuous cardiac monitoring. The monitor shows a rate of 100 with sinus rhythm interpreted by me 190: Called to bedside by nursing. Patient went into SVT. 1 mg of Ativan ordered for the patient and 6 mg of adenosine was pushed on the patient which broke her SVT. Will continue to monitor patient. 1921: Called back to bedside by nursing as patient went back into SVT. Blood pressure stable. An additional 12 mg of adenosine was pushed on the patient a second liter of fluid was started and the patient. Status post the second dose of 12 mg adenosine the patient went into a sinus rhythm again. Will continue to monitor patient. Labs show leukocytosis of 18 CT of the head chest x-ray negative. Labs are otherwise unremarkable with exception of a creatinine of 1.59. 2011: Vital signs stable. Patient is resting comfortably. Urinalysis is concerning for UTI. Rocephin ordered for the patient patient would be admitted to [facility] team. Impression & Plan UTI (urinary tract infection), AMS (altered mental status), SVT (supraventricular tachycardia) Discharge Plan Visit Data Chief Complaint: Confusion Stated Complaint: AMS ED Provider: Vu Casey Discharge Problem: UTI (urinary tract infection), AMS (altered mental status), SVT (supraventricular tachycardia) Patient Disposition: Admitted As Inpatient Forms Stand Alone Forms: My [facility] Prescriptions Prescriptions: No Action ProAir RespiClick 90 mcg/actuation aerosol powdr breath activated See Rx Instructions .ROUTE .COMPLEX Qty: 1 5RF Dose Instruction: INHALE 1 PUFF BY MOUTH 4 TIMES A DAY Rx Instructions: INHALE 1 PUFF BY MOUTH 4 TIMES A DAY lamotrigine 25 mg tablet 150 mg PO BID omeprazole 40 mg capsule,delayed release(DR/EC) 40 mg PO BID Qty: 180 3RF montelukast 10 mg tablet See Rx Instructions .ROUTE .COMPLEX Qty: 90 3RF Dose Instruction: TAKE 1 TABLET BY MOUTH EVERY DAY Rx Instructions: TAKE 1 TABLET BY MOUTH EVERY DAY ipratropium bromide 21 mcg (0.03 %) spray,non-aerosol See Rx Instructions .ROUTE .COMPLEX Qty: 30 8RF Dose Instruction: INSTILL 2 SPRAYS INTRANASALLY USE DIRECTED NEEDED FOR ALLERGIES ADMINISTER INTO EACH NOSTRIL Rx Instructions: INSTILL 2 SPRAYS INTRANASALLY USE DIRECTED NEEDED FOR ALLERGIES ADMINISTER INTO EACH NOSTRIL carbidopa-levodopa 50-200 mg tablet extended release 1 tab PO TID 30 Days Qty: 90 5RF carbidopa-levodopa 25-100 mg tablet 1 tab PO .COMPLEX PRN (Reason: breakthrough RLS sx) 30 Days Qty: 60 5RF Rx Instructions: 1 tab orally 1-2 times PRN; levothyroxine 112 mcg tablet See Rx Instructions .ROUTE .COMPLEX Qty: 108 1RF Rx Instructions: Take 1 tablet Mom-Fri and 1.5 tablets Sat and Sun; Linzess 290 mcg capsule 290 mcg PO DAILY Qty: 90 3RF topiramate 50 mg tablet 50 mg PO QPM topiramate 25 mg tablet 25 mg PO QAM Qty: 30 0RF Rx Instructions: take one tablet in the morning. Zepbound 7.5 mg/0.5 mL pen injector 7.5 mg subcut Q7D Qty: 2 0RF cetirizine [Zyrtec] 10 mg tablet 10 mg PO DAILY PRN (Reason: allergy symptoms) Qty: 30 0RF lithium carbonate 150 mg capsule 300 mg PO .am Rx Instructions: in the AM (DME) Spacer for Inhaler Misc See Rx Instructions .Route Qty: 1 0RF Rx Instructions: As directed cholecalciferol (vitamin D3) 50 mcg (2,000 unit) capsule 50 mcg PO .COMPLEX Rx Instructions: 50 mcg orally 2x/week; lithium carbonate 300 mg capsule 600 mg PO QPM clonidine HCl 0.1 mg tablet 0.1 mg PO HS gabapentin 300 mg capsule 300 mg PO BID 30 Days Qty: 60 5RF zoledronic [id number] [Reclast] 5 mg/100 mL piggyback IV amantadine HCl PO BID sertraline [Zoloft] 100 mg tablet 200 mg PO QAM cyanocobalamin-cobamamide 5,000-100 mcg tablet, sublingual 1 tab sublingual DAILY Referrals Referrals: Jann Brewer DO [Primary Care Provider] -
[2024-08-29] MEDS: SODIUM CHLORIDE 0.9% 1,000 ML IV SCH ×2 (18:57→23:00)
[2024-08-29 19:01] LABS: Base Excess VBG -5.6 mEq/L; HCO3 VBG 16 mmol/L; PCO2 VBG 22 mmHg (38-50); PO2 VBG 54 mmHg; pH VBG 7.47 (7.36-7.41)
[2024-08-29 19:03] LABS: Hematocrit (blood only) 49.5 % (37.0-47.0); Hemoglobin 17.1 g/dl (12.0-16.0); Mean Corpuscular Hemoglobin 29.3 pg (25.0-34.0); Mean Corpuscular Hgb Conc 34.5 g/dL (32.0-36.0); Mean Corpuscular Volume 84.9 fL (80.0-100.0); Mean Platelet Volume 12.4 fL (9.4-12.4); Platelet Count 345 K/uL (130-400); RDW Coefficient of Variation 11.8 % (11.5-14.5); RDW Standard Deviation 36.2 fL (36.4-46.3); Red Blood Count 5.83 M/uL (4.20-5.40); White Blood Count 18.12 K/ul (4.8-10.8)
[2024-08-29] MEDS: LORazepam 2 MG/1 ML VIAL IV STA (19:07)
--- NOTE | 2024-08-29 19:07 | CT Scan Report ---
Exam: CT scan of the head without contrast only: Reason for exam: Altered mental status COMPARISON: 10/09/2021. FINDINGS: Study is somewhat limited by motion however no definite evidence of intracranial mass, hemorrhage or edema is seen at this time. Ventricular size normal without midline shift or extra-axial blood/fluid collection. Mastoids remain well-aerated. Visualized paranasal sinuses remain well aerated. No acute process of the bony calvarium is identified. IMPRESSION: 1. Study limited by motion. 2. Within these limitations no gross evidence of acute intracranial process seen on unenhanced head CT study at this time. Electronically signed by Collin Mora 08-29-2024 7:04 PM
[2024-08-29] MEDS: ADENOSINE IV SOLN 3 MG/ML 2 ML VIAL IV STA ×2 (19:12→19:27)
[2024-08-29] MEDS: SODIUM CHLORIDE 0.9% 1,000 ML IV ONE (19:15)
--- NOTE | 2024-08-29 19:18 | XRay Report ---
EXAM: Portable AP chest radiograph TECHNIQUE: AP portable radiograph of the chest was obtained. INDICATION: Shortness of breath. Concern for sepsis Comparison: Chest radiograph December 29, 2022 FINDINGS: LINES and TUBES: None CARDIOVASCULAR: Cardiac silhouette is stably and mildly enlarged in size. LUNGS/PLEURA: No focal consolidation identified. No significant pleural fluid. No discernible pneumothorax. OSSEOUS/OTHER: No displaced acute osseous process identified. IMPRESSION: No radiographic evidence of acute cardiopulmonary process. Electronically signed by Neftaly Sunshine 08-29-2024 7:17 PM
[2024-08-29 19:20] LABS: Albumin Level 4.6 gm/dl (3.4-5.0); BUN Creatinine Ratio 15.7 (10-20); Bilirubin Direct 0.1 mg/dl (0-0.2); Bilirubin,Total 0.7 mg/dl (0.2-1.0); Calcium 10.2 mg/dl (8.6-10.3); Creatinine Clr Calc Pharmacy 40.6 ml/min; Magnesium 2.4 mg/dl (1.7-2.4); Potassium 4.1 mmol/L (3.5-5.1); Total Protein 7.8 gm/dl (6.0-8.3)
[2024-08-29 19:26] LABS: Troponin I High Sensitivity 18.6 pg/ml (0-14)
[2024-08-29 19:28] LABS: INR 1.1 (0.9-1.1); Prothrombin Time 11.6 Seconds (9.0-12.0)
[2024-08-29] MEDS: LORazepam 1 MG/1 ML SYR ED Inj Use IV STA (19:29)
[2024-08-29 19:41] LABS: Basophils # (auto) 0.06 K/uL (0.00-0.20); Basophils % (auto) 0.3 %; Eosinophils # (auto) 0.01 K/uL (0.00-0.50); Eosinophils % (auto) 0.1 %; Immature Granulocytes % (auto) 0.6 %; Lymphocytes # (auto) 0.39 K/uL (1.20-3.40); Lymphocytes % (auto) 2.2 %; Monocytes # (auto) 0.56 K/uL (0.11-0.59); Monocytes % (auto) 3.1 %; Neutrophils % (auto) 93.7 %; RBC Morphology Unremarkable
[2024-08-29 19:45] LABS: Adenovirus PCR Not Detected (NotDetected); Bordetella parapertussis PCR Not Detected (NotDetected); Bordetella pertussis PCR Not Detected (NotDetected); Chlamydia pneumoniae PCR Not Detected (NotDetected); Coronavirus 229E PCR Not Detected (NotDetected); Coronavirus CoV-2 (COVID19)PCR Not Detected (NotDetected); Coronavirus HKU1 PCR Not Detected (NotDetected); Coronavirus NL63 PCR Not Detected (NotDetected); Coronavirus OC43PCR Not Detected (NotDetected); Human Metapneumovirus PCR Not Detected (NotDetected); Influenza A PCR Not Detected (NotDetected); Influenza B PCR Not Detected (NotDetected); Mycoplasma pneumoniae PCR Not Detected (NotDetected); Parainfluenza Virus 1 PCR Not Detected (NotDetected); Parainfluenza Virus 2 PCR Not Detected (NotDetected); Parainfluenza Virus 3 PCR Not Detected (NotDetected); Parainfluenza Virus 4 PCR Not Detected (NotDetected); Respiratory Syncytial VirusPCR Not Detected (NotDetected); Rhinovirus/Enterovirus PCR Not Detected (NotDetected)
[2024-08-29 20:00] LABS: Appearance Urine Clear (Clear); Bacteria Urine Automated 3+ (None Seen); Bilirubin Urine Negative (Negative); Blood Urine Negative (Negative); Color Urine Yellow; Epithelial Cell Urine Auto 0-2 /hpf (0-2); Glucose Urine UA Negative (Negative); Ketones Urine 1+ (Negative); Leukocyte Esterase Urine Trace (Negative); Nitrite Urine Positive (Negative); Protein Urine Trace (Negative); RBC Urine Automated 0-2 /hpf (0-2); Specific Gravity Urine 1.007 (1.000-1.030); Urobilinogen Urine Negative (Negative); WBC Urine Automated 0-5 /hpf (0-5); pH Urine 6.5 (4.5-7.5)
[2024-08-29] MEDS: LORazepam 1 MG TAB ONE (20:14)
[2024-08-29] MEDS: ADENOSINE IV SOLN 3 MG/ML 2 ML VIAL IV ONE (20:14)
[2024-08-29] MEDS: cefTRIAXone SODIUM 2,000 MG/50 ML BAG IV STA (20:25)
[2024-08-29 20:52] LABS: Amphetamines+Metham, Urine Neg (Neg); Barbiturates, Urine Neg (Neg); Benzodiazepine, Urine Neg (Neg); Cocaine, Urine Neg (Neg); Fentanyl, Urine Neg (Neg); MDMA (Ecstacy), Urine Neg (Neg); Marijuana, Urine Pos (Neg); Methadone, Urine Neg (Neg); Opiate, Urine Neg (Neg); Phencyclidine, Urine Neg (Neg)
--- NOTE | 2024-08-29 21:44 | History & Physical Report ---
Date of Service August 29, 2024 Assessment & Plan (1) AMS (altered mental status): Plan: Assessment: 1. Acute encephalopathy. Probably metabolic. CT of the brain is reassuring. Neurologic exam is completely nonfocal as discussed above. We will do neurochecks to be notified if any changes. I do not see any need for any provocative additional neuroimaging. Will keep n.p.o. except ice chips and sips of medicine. If her neurostatus improves diet can be advanced to breakfast. 2. UTI. IV Rocephin. Monitor. 3. Leukocytosis probably secondary to #2. Monitor. 4. SVT x 2 in the ER. Stat TSH pending at the time of this dictation. We did speak with the [facility] ICU provider. This will need followed up on. Echocardiogram. Cardiology consultation has been made. We personally communicated with cardiology on-call. 5. History of bipolar disorder on multiple medications. Med rec is pending at the time of this dictation. She is on chronic lithium therapy. Level has been obtained it is 1.1. Reassuring. 6. History of medicinal marijuana use. Toxicology is positive for marijuana but otherwise negative for drugs of abuse. 7. Hypovolemia dehydration. Continue to hydrate. Lactated Ringer's 125 an hour. 8. Acute kidney injury. Prerenal. Hydrate and monitor. 9. Acute metabolic acidosis probably secondary to infection and acute kidney injury. Monitor. 10. Mildly elevated troponin. 18.6. Repeat is pending. 11. Obesity. 12. History of peripheral neuropathy. 13. History of restless leg syndrome. Follows with neurology. 14. History of poor memory per neurology's note from August 06, 2024. 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 15. Tremor. Chronic. Plan: As discussed above. Please refer to orders for further planning. Again, monitor in ICU overnight given the cardiac dysrhythmia x 2 high risk for recurrence and need for urgent intervention. History of Present Illness Chief Complaint: Altered mental status. Primary Care Provider: Jann Brewer DO This is a 59-year-old female who lives at home alone. On the weekends her boyfriend often spends the weekend with her. This is a history obtained from the patient's brother at the bedside. The patient's brother called to check on her today she was confused on the telephone. The boyfriend was with her and recommended bring her to the ER. Patient was brought to the ER for further evaluation and treatment. The patient's brother last spoke with her Saturday and she was in her normal state of health. The patient does have a history of UTIs in the past per the brother. However the confusion is a new phenomenon. M ost of the history obtained from the patient's brother and his girlfriend at the bedside who know the patient well. The patient is a very poor historian at this point with encephalopathy. The patient does take medical marijuana. She denies abusing that. No other controlled substances that the patient's brother is aware of. She does not drink alcohol per the patient's brother. In the ER she had a nonacute CT of the brain. She had a urinalysis which was questionable for UTI. While in the ER she went into SVT. She had to be chemically converted with 6 mg of IV adenosine. Approximately 20 minutes later she relapsed into SVT. She received 12 mg of IV adenosine. Converted to sinus rhythm with PACs and PVCs. Magnesium level reassuring. We are called admit the patient further evaluation and treatment. [place] level was 1.1. She is on multiple psychiatric medications with her bipolar disorder per the patient's brother. We are admitting the patient to the ICU overnight given the 2 episodes of SVT in such close proximity. We have spoken personally with the [facility] provider in the ICU Puneet olmstead. In addition we have spoken with cardiology on-call for consultation we have ordered an echocardiogram. We have ordered a stat TSH which is pending at the time of this dictation. She also received 2 L of IV fluid in the ER. We are starting her on lactated Ringer's at this time. In addition she received multiple doses of IV Ativan initially as well. Allergies Allergy/AdvReac Type Severity Reaction Status Date / Time budesonide Allergy Unknown Unknown Verified 08/06/24 13:02 cyclobenzaprine Allergy Unknown severe Verified 08/06/24 13:02 depression latex Allergy Unknown lehman; Verified 08/06/24 13:02 leaves a vani on skin NSAIDS (Non-Steroidal Allergy Unknown Gastrointestinal Verified 08/06/24 13:02 Anti-Inflamma Upset psyllium [From Metamucil] Allergy Unknown Wheezing Verified 08/06/24 13:02 quetiapine [From Seroquel] Allergy Unknown tardive Verified 08/06/24 13:02 dyskinesia strawberry Allergy Unknown Hives Verified 08/06/24 13:02 prednisone AdvReac Nightmare Verified 08/06/24 13:02 Home Medications Medication Instructions Recorded Confirmed Type sertraline 100 mg tablet (Zoloft) 200 mg PO QAM 02/18/20 08/29/24 History lithium carbonate 300 mg capsule 600 mg PO QPM 08/31/22 08/29/24 History Spacer for Inhaler #1 ea 07/09/23 08/29/24 Rx omeprazole 40 mg capsule,delayed 40 mg PO BID #180 caps 11/12/23 08/29/24 Rx release zoledronic acid 5 mg/100 mL in 1 ea IV UD 11/13/23 08/29/24 History mannitol 5 %-water intravenous piggybck (Reclast) carbidopa 25 mg-levodopa 100 mg 1 tab PO .COMPLEX PRN breakthrough 06/29/24 08/29/24 Rx tablet RLS sx 30 days #60 tabs levothyroxine 112 mcg tablet See Rx Instructions .Route 06/29/24 08/29/24 Rx .COMPLEX #108 tabs linaclotide 290 mcg capsule 290 mcg PO DAILY #90 caps 07/30/24 08/29/24 Rx (Linzess) clonidine HCl 0.1 mg tablet 0.1 mg PO QAM 08/06/24 08/29/24 History topiramate 25 mg tablet 25 mg PO QAM #30 tabs 08/19/24 08/29/24 Rx topiramate 50 mg tablet 50 mg PO QPM 08/19/24 08/29/24 History Zepbound 7.5 mg/0.5 mL 7.5 mg (0.5 mL) subcut Q7D #2 mL 08/26/24 08/29/24 Rx subcutaneous pen injector (tirzepatide (weight loss)) albuterol sulfate 90 mcg/actuation 1 inh inhalation QID 08/29/24 08/29/24 History breath activated powder inhaler (ProAir RespiClick) amantadine HCl 100 mg tablet 100 mg PO BID 08/29/24 08/29/24 History carbidopa ER 50 mg-levodopa 200 mg 1 tab PO TID 08/29/24 08/29/24 History tablet,extended release clonazepam 1 mg tablet 1 mg PO DAILY PRN Anxiety 08/29/24 08/29/24 History clonidine HCl 0.1 mg tablet 0.2 mg PO HS 08/29/24 08/29/24 History doxepin 10 mg capsule 10 mg PO HS 08/29/24 08/29/24 History famotidine 40 mg tablet 40 mg PO DAILY 08/29/24 08/29/24 History gabapentin 300 mg capsule 300 mg PO BID 08/29/24 08/29/24 History lamotrigine 150 mg tablet 150 mg PO BID 08/29/24 08/29/24 History lithium carbonate 300 mg capsule 300 mg PO QAM 08/29/24 08/29/24 History montelukast 10 mg tablet 10 mg PO DAILY 08/29/24 08/29/24 History Past Med/Surg History Problem List (Updated 08/29/24 @ 20:14 by Vu Casey MD) SVT (supraventricular tachycardia) (Acute) AMS (altered mental status) (Acute) UTI (urinary tract infection) (Acute) Scoliosis Tremor Carpal tunnel syndrome on both sides Cervical radicular pain 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, with mood symptoms Hypothyroidism (acquired) Osteoporosis Hyperparathyroidism, primary Lab test negative for COVID-19 virus (Acute) Back pain Hyperparathyroidism (Acute) Osteoporosis (Acute) Bloating Constipation Abdominal distention Dysphagia Atrophic vaginitis Obesity Sleep disorder, shift-work Sleep apnea Raynauds phenomenon Sleep-disordered breathing Perimenopausal atrophic vaginitis Paresthesia of both lower extremities Lumbosacral radiculopathy Neuropathy Insomnia IT band syndrome Cough (Acute) Dyspareunia (Acute) Esophageal reflux (Acute) Extrinsic asthma (Acute) Iron deficiency anemia secondary to inadequate dietary iron intake (Acute) Lower back pain (Acute) Menorrhagia (Acute) Vitamin B12 deficiency (Acute) Vitamin D deficiency (Acute) Ventral hernia with gangrene and obstruction Anxiety (Acute) Restless leg syndrome (Acute) Hypothyroidism (Acute) Anemia Hypoxemia (Acute) SAYRA positive Medical History Stomach problems GI EVAL/TESTING DR MONDRAGON - RECENT TESTING PER PT: COLONOSCOPY/ENDOSCOPY/UPPER GI TO DUODENUM NO SIGNIFICANT FINDINGS PER PT 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 Allergic rhinitis due to pollen History of anesthesia reaction difficulty waking up with gastric bypass sx Osteoarthritis Sciatic leg pain left Chronic back pain Chronic kidney disease, stage 3 Prediabetes PT NOT SURE Depression Anxiety Tardive dyskinesia HX Bipolar 1 disorder PT NOT SURE IF 1 OR 2 Asthma inhaler prn- well controlled - LAST USE PRN INHALER 4-5 DAYS AGO D/T WEATHER Surgical History S/P parathyroidectomy S/P hernia repair S/P cataract extraction left History of endoscopy History of colonoscopy History of section History of dilatation and curettage History of endometrial ablation History of bilateral tubal ligation History of carpal tunnel surgery of right wrist History of carpal tunnel surgery of left wrist x2 History of cholecystectomy History of gastric bypass History of tonsillectomy Family History Brother Family history of diabetes mellitus Diabetes Hypertension Father Family history of diabetes mellitus Diabetes Heart disease Hypertension Bipolar 1 disorder Aunt Family history of diabetes mellitus Grandfather (Paternal) Family history of diabetes mellitus Grandmother (Paternal) Family history of diabetes mellitus Cancer Abdominal aneurysm Mother Asthma Heart disease Hypertension Environmental allergies Grandmother (Maternal) Ovarian cancer Grandfather (Maternal) Lung cancer Other No family history of adverse response to anesthesia No family history of bleeding disorder Denies family history of Prostate cancer Myocardial infarction Breast cancer Colorectal cancer Social History Smoking Status: Unknown if ever smoked Tobacco Type: Declines Age Started Using Tobacco: 17; Age Quit Using Tobacco: 34; packs per day: 0.25; Cigarettes Per Day: HX SMOKED FOR A SHORT TIME; Second Hand Exposure: No; Do You Dip or Chew Tobacco: No; Hx Alcohol Use: No Hx Substance Use: No Preferred Language: Upper Sorbian Communication Ability: Effective Visual Impairment: Diminished Hearing Ability: Normal Parking Lot Supervisor Required: No Beliefs That Will Affect Care: None marital status: Single Current Living Situation: Alone Current Living Situation Comment: 2 [address]S current occupational status: employed 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 The patient cannot provide any meaningful data in the family as per HPI gives the history of present illness. Otherwise unobtainable. Physical Exam Physical Exam: In General: In general 59-year-old female she is actually only alert and oriented to person only. She cannot take to tell me the month date or year. She cannot identify the location we are currently in (hospital). She cannot even name her brother when he first walked in the room or his girlfriend. She appears to be in no acute distress she denies pain. Again denies using extra medications at home. HEENT: Normocephalic atraumatic pupils are equal round and reactive to light bilaterally. No scleral icterus no conjunctival injection external auditory canals are patent septum is in the midline nose is without discharge oral mucosa is pink and moist without lesion. Speech is mildly dysarthric with dry mucous membranes. NECK: Supple no rigidity no lymphadenopathy no thyromegaly no carotid bruits no JVD no masses. HEART: Regular rate and rhythm I do not appreciate any rub. No murmur. She is having a fair amount of ectopy. LUNGS: Diminished but clear to auscultation bilaterally and anteriorly with no evidence of adventitious sounds/wheezes rales or rhonchi. ABDOMEN: Soft nontender, no rebound, no peritoneal signs, positive bowel sounds, no appreciable organomegaly. However exam somewhat limited given her body habitus. EXTREMITIES: Intact, no peripheral cyanosis, clubbing or edema. Strength is 5 out of 5 in extremities x4, no pathological reflexes. No pronator drift. Strength is 5 out of 5. No stacy cerebellar sign. She follows all commands precisely. With hand grasp leg moving strength testing excetra NEUROLOGICAL: Global tremor noted. Otherwise, cranial nerves II through XII are grossly intact with no focal deficit elicited upon examination. Results & Data Results & Data Vital Signs (Past 12 Hours) Vital Signs Temp Pulse Pulse Resp BP BP Pulse Ox 08/29/24 20:45 36.6 C 93 H 18 122/71 97 08/29/24 20:30 36.6 C 94 H 18 129/77 98 08/29/24 20:15 36.6 C 98 H 17 118/61 99 08/29/24 20:08 97 H 16 125/75 100 08/29/24 20:08 100 08/29/24 20:00 93 H 16 124/75 99 08/29/24 19:45 93 H 110/77 98 08/29/24 19:30 93 H 17 97 08/29/24 19:30 125/75 08/29/24 19:28 160 H 131/76 08/29/24 19:27 73 08/29/24 19:26 170 H 08/29/24 19:24 109/83 08/29/24 19:15 129/86 08/29/24 19:12 85 08/29/24 18:58 169 H 08/29/24 18:47 08/29/24 18:47 37.0 C 106 H 18 140/108 H 100 08/29/24 18:38 112 H O2 Del Method O2 Flow Rate 08/29/24 20:45 Room Air 08/29/24 20:30 Room Air 08/29/24 20:15 Room Air 08/29/24 20:08 Room Air 08/29/24 20:08 Room Air 08/29/24 20:00 Nasal Cannula 2 08/29/24 19:45 08/29/24 19:30 08/29/24 19:30 08/29/24 19:28 08/29/24 19:27 08/29/24 19:26 08/29/24 19:24 08/29/24 19:15 08/29/24 19:12 08/29/24 18:58 08/29/24 18:47 Room Air 08/29/24 18:47 Room Air 08/29/24 18:38 Code Status & VTE Plan Code Status Full code. We personally spoke with the patient's brother at the bedside who is her next of kin. He does state that she would not want a feeding tube. VTE Prophylaxis Plan VTE Prophylaxis will be ordered: Yes PG Care Time/CCT Total # of Minutes Spent Total Time Spent with Patient: Total time spent is greater than 50% in coordination of care (as documented) at patient's floor/unit and/or counseling patient: Coding Level of Care Code 18619 INT INP/OBS CARE 375MIN Diagnoses AMS (altered mental status) R41.82
--- NOTE | 2024-08-29 21:47 | Critical Care Consultation ---
Date of Consultation August 29, 2024 Assessment & Plan (1) Encephalopathy: (2) SVT (supraventricular tachycardia): (3) UTI (urinary tract infection): (4) Sepsis: (5) Restless leg syndrome: (6) Hypothyroidism: (7) Respiratory alkalosis: (8) SAMEER (acute kidney injury): Plan Reason Critically Ill: 59 YOF admitted to hospital for encephalopathy in setting of SIRS with source possibly urine (sepsis), that had 2 episodes of SVT requiring administration of adenosine. Neuro - Encephalopathy (acute), Thyroid disorder, chronic: Tardive Dyskinesia, Bipolar, mood disturbances CAM ICU: [facility] - At this time encephalopathy multifocal - to include secondary to sepsis/UTI, abnormal TSH, polypharmacy, marijuana use- although supposedly prescribed, hypovolemia and SAMEER, or CVA - CT head is negative for any acute process - Neuro exam without focal deficits other than memory and speech- however last known well was > 48 hours ago - She does say no to headaches or neck pain and is also without any Kernig's - [place] level in range at 1.9 - ETOH <10 - Rest of tox screen is negative except for marijuana as above - Will send Tylenol and ASA levels - At this time will continue with supportive care- correct fluid volume deficit, electrolyte, will send other drug levels as applicable- although remaining levels are send outs - At this time she is unlikely to be still for MRI and is unclear at this time if it would add benefit- re- consider if clinical picture changes - Consider LP if no change and clinical picture worsens Cardiac - SVT, sepsis - no history of dysrhythmia that is known of - - Abnormal TSH- with SVT - TSH is low 0.141 Free T4 normal at 1.04- rest of electrolytes are within goal range of K >4 and MG > 2- as free T4 is normal and electrolytes stable less likely Thyroid Storm - PATEL criteria- 35 -45 points- 25 for tachycardia on presentation, and 10-20 for 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 Cardioversion - ECHO in am - Cardiology consulted by primary service- appreciate assistance - K >4 and MG >2 - Technically meets SIRS on arrival with possible source being urine- Elevated WBC, Tachycardic, organ dysfunction of SAMEER and Brain - Fluid volume status examines as she is still volume down- follow urine and MAPS, perform bedside POCUS on arrival to ICU - Received 2Liters of crystalloid in ER- will provide another 500 ml on arrival to ICU and re-eval with pocus - Follow culture results Respiratory - NO acute needs, hx of FAWAD does not use device at home or on oxygen GI - NPO until encephalopathy clears RENAL/LYTES - SAMEER on CKD III, Mixed respiratory alkalosis with AGAP Metabolic Acidosis - Is with appropriate compensation for acid base status- which is likely effected secondary to hypovolemia/sepsis and SAMEER - Continue with Crystalloid support- add vasopressors if needed- maintain maps >65 - GAP likely related to renal function - lactate 1.9, ETOH <10 no history of E MATTHEW use - OSMO 294 - Urine retention - Gardner placed on arrival to ICU 1400 cc out - dilute - will send urine osmo ENDO - no acute needs - Hx noted as "pre-diabetic" - ICU hyperglycemic protocol HEME - No acute needs see ID section below - results likely ID - Sepsis - Sepsis likely from urine- organ dysfunction - renals, encephalopathy - lactate (-), PCT 0.08, WBC 18, elevated NLR - Follow Urine culture - Follow blood cultures - Continue Rocephin LINES/IV ACCESS - PIV, Gardner Continue use of these lines DVT PROPHYLAXIS - SCS and Lovenox DISPO: ICU until rhythm and hemodynamics proven stable I have personally spent 55 minutes of critical care time in the direct management of this patient. This is a life/limb threatening event. This includes time spent evaluating patient, direct bedside care, chart review, placing orders, interpretation of diagnostic studies, discussion with consultants, patient, and family members, as well as other required patient management activities. This time is exclusive of all separately billable procedures, and separate from and in addition to any other critical care service time. Thank you for allowing us to participate in the care of this patient. Please refer to my attending physician's documentation for any further recommendations. History of Present Illness Reason for Consultation: Tachycardia Requesting Physician: Andres Gray MD Attending Physician: Andres Gray MD History of Present Illness 59 YOF with medical history of : CKD, Prediabetes, Depression, Anxiety, Tardive Dykinesia, Bipolar, OA, chronic back pain, scoliosis, anemia, Hypothyroidism, Hyperparathyroidism, Raynaud's, Restless leg, GERD. Patient was brought to the ER today for concerns of confusion, initially she was accompanied by her boyfriend, however now her brother is at bedside. Brother reports that he last seen the patient normal on Saturday08/26/24 and last spoke to her on 08/28/24 on the phone and noted some confusion, he called today and she didn't answer. They got in touch with her boyfriend and brought her in to the ER. In the ER the patient was noted to be tachycardic with HR ranging from 100-160s, which was treated with adenosine on two separate occasions for re-current SVT, for which she did break and appears now to be in NSR with frequent PVCS. She had routine labs performed to include PCT, UA, and HsCTNI. She was given Ativan, 2L of crystalloid, and Rocephin. She was noted to have an SAMEER, AG with alkalosis, elevated WBC count, and HGB level of 17. She had CT scan of her head performed that was limited by motion artifact however was interpreted as without an acute intracranial process noted. CXR was noted with no acute process. Tox screen is + for marijuana. [place] level is upper normal. UA may be consistent with UTI. Due to her arrhythmia and receiving Adenosine x2 request is made for patient to be monitored in ICU. CODE: FULL Allergies Allergy/AdvReac Type Severity Reaction Status Date / Time budesonide Allergy Unknown Unknown Verified 08/06/24 13:02 cyclobenzaprine Allergy Unknown severe Verified 08/06/24 13:02 depression latex Allergy Unknown lehman; Verified 08/06/24 13:02 leaves a vani on skin NSAIDS (Non-Steroidal Allergy Unknown Gastrointestinal Verified 08/06/24 13:02 Anti-Inflamma Upset psyllium [From Metamucil] Allergy Unknown Wheezing Verified 08/06/24 13:02 quetiapine [From Seroquel] Allergy Unknown tardive Verified 08/06/24 13:02 dyskinesia strawberry Allergy Unknown Hives Verified 08/06/24 13:02 prednisone AdvReac Nightmare Verified 08/06/24 13:02 Home Medications Medication Instructions Recorded Confirmed Type sertraline 100 mg tablet (Zoloft) 200 mg PO QAM 02/18/20 08/29/24 History lithium carbonate 300 mg capsule 600 mg PO QPM 08/31/22 08/29/24 History Spacer for Inhaler #1 ea 07/09/23 08/29/24 Rx omeprazole 40 mg capsule,delayed 40 mg PO BID #180 caps 11/12/23 08/29/24 Rx release zoledronic acid 5 mg/100 mL in 1 ea IV UD 11/13/23 08/29/24 History mannitol 5 %-water intravenous piggybck (Reclast) carbidopa 25 mg-levodopa 100 mg 1 tab PO .COMPLEX PRN breakthrough 06/29/24 08/29/24 Rx tablet RLS sx 30 days #60 tabs levothyroxine 112 mcg tablet See Rx Instructions .Route 06/29/24 08/29/24 Rx .COMPLEX #108 tabs linaclotide 290 mcg capsule 290 mcg PO DAILY #90 caps 07/30/24 08/29/24 Rx (Linzess) clonidine HCl 0.1 mg tablet 0.1 mg PO QAM 08/06/24 08/29/24 History topiramate 25 mg tablet 25 mg PO QAM #30 tabs 08/19/24 08/29/24 Rx topiramate 50 mg tablet 50 mg PO QPM 08/19/24 08/29/24 History Zepbound 7.5 mg/0.5 mL 7.5 mg (0.5 mL) subcut Q7D #2 mL 08/26/24 08/29/24 Rx subcutaneous pen injector (tirzepatide (weight loss)) albuterol sulfate 90 mcg/actuation 1 inh inhalation QID 08/29/24 08/29/24 History breath activated powder inhaler (ProAir RespiClick) amantadine HCl 100 mg tablet 100 mg PO BID 08/29/24 08/29/24 History carbidopa ER 50 mg-levodopa 200 mg 1 tab PO TID 08/29/24 08/29/24 History tablet,extended release clonazepam 1 mg tablet 1 mg PO DAILY PRN Anxiety 08/29/24 08/29/24 History clonidine HCl 0.1 mg tablet 0.2 mg PO HS 08/29/24 08/29/24 History doxepin 10 mg capsule 10 mg PO HS 08/29/24 08/29/24 History famotidine 40 mg tablet 40 mg PO DAILY 08/29/24 08/29/24 History gabapentin 300 mg capsule 300 mg PO BID 08/29/24 08/29/24 History lamotrigine 150 mg tablet 150 mg PO BID 08/29/24 08/29/24 History lithium carbonate 300 mg capsule 300 mg PO QAM 08/29/24 08/29/24 History montelukast 10 mg tablet 10 mg PO DAILY 08/29/24 08/29/24 History Patient History Medical History Stomach problems GI EVAL/TESTING DR MONDRAGON - RECENT TESTING PER PT: COLONOSCOPY/ENDOSCOPY/UPPER GI TO DUODENUM NO SIGNIFICANT FINDINGS 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 Allergic rhinitis due to pollen History of anesthesia reaction difficulty waking up with gastric bypass sx Osteoarthritis Sciatic leg pain left Chronic back pain Chronic kidney disease, stage 3 Prediabetes PT NOT SURE Depression Anxiety Tardive dyskinesia HX Bipolar 1 disorder PT NOT SURE IF 1 OR 2 Asthma inhaler prn- well controlled - LAST USE PRN INHALER 4-5 DAYS AGO D/T WEATHER Surgical History S/P parathyroidectomy S/P hernia repair S/P cataract extraction left History of endoscopy History of colonoscopy History of section History of dilatation and curettage History of endometrial ablation History of bilateral tubal ligation History of carpal tunnel surgery of right wrist History of carpal tunnel surgery of left wrist x2 History of cholecystectomy History of gastric bypass History of tonsillectomy Family History Brother Family history of diabetes mellitus Diabetes Hypertension Father Family history of diabetes mellitus Diabetes Heart disease Hypertension Bipolar 1 disorder Aunt Family history of diabetes mellitus Grandfather (Paternal) Family history of diabetes mellitus Grandmother (Paternal) Family history of diabetes mellitus Cancer Abdominal aneurysm Mother Asthma Heart disease Hypertension Environmental allergies Grandmother (Maternal) Ovarian cancer Grandfather (Maternal) Lung cancer Other No family history of adverse response to anesthesia No family history of bleeding disorder Denies family history of Prostate cancer Myocardial infarction Breast cancer Colorectal cancer Social History Smoking Status: Former smoker Tobacco Type: Declines Age Started Using Tobacco: 17; Age Quit Using Tobacco: 34; packs per day: 0.25; Cigarettes Per Day: HX SMOKED FOR A SHORT TIME; Second Hand Exposure: No; Do You Dip or Chew Tobacco: No; Hx Alcohol Use: No Hx Substance Use: No Preferred Language: [place] Communication Ability: Impaired Visual Impairment: Diminished Hearing Ability: Normal Core Maker Helper Required: No Beliefs That Will Affect Care: None marital status: Single Current Living Situation: Alone Current Living Situation Comment: 2 CATS current occupational status: employed 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 How many Children do You have: 1 Feels Safe at Home: Yes Childhood Exposure to Second-Hand Smoke: Yes Diet: regular Diet Comment: regular caffeine: Yes during the past year weight has: decreased > 10 lbs Dental Care, Regularly: Yes Physical Activity Frequency: 3-4 Times per Week Physical Activity Frequency Comment: PT at home and fit for play Seatbelt Use: always Sunscreen Use: Yes Assistive Devices: None Review of Systems Review of Systems: as mentioned in HPI, unable to obtain full ROS secondary to encephalopathy Physical Exam Physical Exam: PHYSICAL EXAM: General: awake, alert Head: Normocephalic, atraumatic ENT: PERRLA EOMI, mucous membranes dry Neuro: AAO x 1, speech clear and appropriate to yes and no questions, strength intact bilaterally 5/5, sensation intact and equal all extremities, no pronator drift, she is with tremors and jerks which brother states is her normal with her TD and RLS Chest: equal rise and fall of the chest, no accessory muscle use, no heaves or thrills, Clear to auscultation, on room air, Cardiac: Regular rate and rhythm, telemetry reviewed- SR with frequent PVCs and SVT,, skin warm dry, cap refill <3 seconds, peripheral pulses +2 no JVD, no murmur, no edema GI: NABS x 4 quadrants, soft, nontender to palpation, no rebound, guarding or tenderness : Spontaneously voiding, no pain, no CVA tenderness, Extremities: Normal inspection, no peripheral edema or erythema, calfs nontender to palpation Skin: no rash or erythema Results & Data Results & Data Vital Signs (Past 12 Hours) Vital Signs Temp Pulse Pulse Resp BP BP Pulse Ox 08/29/24 20:45 36.6 C 93 H 18 122/71 97 08/29/24 20:30 36.6 C 94 H 18 129/77 98 08/29/24 20:15 36.6 C 98 H 17 118/61 99 08/29/24 20:08 97 H 16 125/75 100 08/29/24 20:08 100 08/29/24 20:00 93 H 16 124/75 99 08/29/24 19:45 93 H 110/77 98 08/29/24 19:30 93 H 17 97 08/29/24 19:30 125/75 08/29/24 19:28 160 H 131/76 08/29/24 19:27 73 08/29/24 19:26 170 H 08/29/24 19:24 109/83 08/29/24 19:15 129/86 08/29/24 19:12 85 08/29/24 18:58 169 H 08/29/24 18:47 08/29/24 18:47 37.0 C 106 H 18 140/108 H 100 08/29/24 18:38 112 H O2 Del Method O2 Flow Rate 08/29/24 20:45 Room Air 08/29/24 20:30 Room Air 08/29/24 20:15 Room Air 08/29/24 20:08 Room Air 08/29/24 20:08 Room Air 08/29/24 20:00 Nasal Cannula 2 08/29/24 19:45 08/29/24 19:30 08/29/24 19:30 08/29/24 19:28 08/29/24 19:27 08/29/24 19:26 08/29/24 19:24 08/29/24 19:15 08/29/24 19:12 08/29/24 18:58 08/29/24 18:47 Room Air 08/29/24 18:47 Room Air 08/29/24 18:38 Laboratory Results Abnormal lab results 08/29/24 08/29/24 Range/Units 18:40 19:36 WBC 18.12 H (4.8-10.8) K/ul RBC 5.83 H (4.20-5.40) M/uL Hgb 17.1 H (12.0-16.0) g/dl Hct 49.5 H (37.0-47.0) % RDW Std Deviation 36.2 L (36.4-46.3) fL Neut # (Auto) 17.00 H (1.40-6.50) K/uL Lymph # (Auto) 0.39 L (1.20-3.40) K/uL VBG pH 7.47 H (7.36-7.41) VBG pCO2 22 L (38-50) mmHg Sodium 134 L (136-145) mmol/L Carbon Dioxide 18 L (21-32) mmol/L Anion Gap 16 H (3-11) BUN 25 H (6-23) mg/dl Creatinine 1.59 H (0.6-1.2) mg/dl Glucose 149 H (70-99(Fasting)) mg/dl Alkaline Phosphatase 185 H (34-104) U/L Troponin I High Sens 18.6 H (0-14) pg/ml Urine Protein Trace H (Negative) Urine Ketones 1+ H (Negative) Urine Nitrite Positive A (Negative) Ur Leukocyte Esterase Trace H (Negative) U Hyaline Cast (Auto) 3-5 H (0-2) /lpf Urine Bacteria (Auto) 3+ H (None Seen) U Marijuana (THC) Screen Pos H (Neg) Diagnostic Findings Chest X-Ray 08/29/24 18:34 EXAM: Portable AP chest radiograph TECHNIQUE: AP portable radiograph of the chest was obtained. INDICATION: Shortness of breath. Concern for sepsis Comparison: Chest radiograph December 29, 2022 FINDINGS: LINES and TUBES: None CARDIOVASCULAR: Cardiac silhouette is stably and mildly enlarged in size. LUNGS/PLEURA: No focal consolidation identified. No significant pleural fluid. No discernible pneumothorax. OSSEOUS/OTHER: No displaced acute osseous process identified. IMPRESSION: No radiographic evidence of acute cardiopulmonary process. Electronically signed by Neftaly Sunshine 08-29-2024 7:[address] 08/29/24 18:34 Exam: CT scan of the head without contrast only: Reason for exam: Altered mental status COMPARISON: 10/09/2021. FINDINGS: Study is somewhat limited by motion however no definite evidence of intracranial mass, hemorrhage or edema is seen at this time. Ventricular size normal without midline shift or extra-axial blood/fluid collection. Mastoids remain well-aerated. Visualized paranasal sinuses remain well aerated. No acute process of the bony calvarium is identified. IMPRESSION: 1. Study limited by motion. 2. Within these limitations no gross evidence of acute intracranial process seen on unenhanced head CT study at this time. Electronically signed by Collin Mora 08-29-2024 7:04 PM Medications Administered Discontinued Medications Adenosine (Adenosine Iv Soln 3 Mg/Ml 2 Ml Vial) Confirm Administered Dose 6 mg IV .STK-MED ONE Stop: 08/29/24 19:04 Last Admin: 08/29/24 20:14 Dose: Not Given Documented By: ES Adenosine (Adenosine Iv Soln 3 Mg/Ml 2 Ml Vial) 6 mg IV NOW STA Stop: 08/29/24 19:03 Last Admin: 08/29/24 19:12 Dose: 6 mg Documented By: ES Adenosine (Adenosine Iv Soln 3 Mg/Ml 2 Ml Vial) 12 mg IV NOW STA Stop: 08/29/24 19:38 Last Admin: 08/29/24 19:27 Dose: 12 mg Documented By: ES Sodium Chloride (Nss) 1,000 mls @ 999 mls/hr IV .Q1H1M SYLVIE Stop: 08/29/24 19:45 Last Infusion: 08/29/24 19:12 Dose: Infused Documented By: Admin: 08/29/24 18:57 Dose: 999 mls/hr Documented By: BMK Sodium Chloride (Nss) 1,000 mls @ 999 mls/hr IV .Q1H1M ONE Stop: 08/29/24 20:37 Last Infusion: 08/29/24 19:45 Dose: Infused Documented By: Admin: 08/29/24 19:15 Dose: 999 mls/hr Documented By: ES Ceftriaxone Sodium (Rocephin) 2,000 mg in 50 mls @ 100 mls/hr IV NOW STA Stop: 08/29/24 20:34 Last Infusion: 08/29/24 21:14 Dose: Infused Documented By: Admin: 08/29/24 20:25 Dose: 100 mls/hr Documented By: SONIDO Lorazepam (Lorazepam 1 Mg Tab) Confirm Administered Dose 1 mg .ROUTE .STK-MED ONE Stop: 08/29/24 19:03 Last Admin: 08/29/24 20:14 Dose: Not Given Documented By: DINAH Lorazepam (Lorazepam 2 Mg/1 Ml Vial) 1 mg IV NOW STA Stop: 08/29/24 19:03 Last Admin: 08/29/24 19:07 Dose: 1 mg Documented By: DINAH Lorazepam (Lorazepam 1 Mg/1 Ml Syr Ed Inj Use) 1 mg IV ONE STA Stop: 08/29/24 20:14 Last Admin: 08/29/24 19:29 Dose: 1 mg Documented By: ES ECG Additional Comments: Reviewed- no STemi, ST depressions noted with rate in the 160s - resolved with rate control Coding Level of Care Code 55187 CRITICAL CARE 1ST 30-74M Diagnoses Encephalopathy G93.40 SVT (supraventricular tachycardia) I47.10 UTI (urinary tract infection) N39.0 Sepsis A41.9 Restless leg syndrome G25.81 Acquired hypothyroidism E03.9 Hypothyroidism type: acquired Respiratory alkalosis E87.3 SAMEER (acute kidney injury) N17.9 (6) Hypothyroidism Hypothyroidism type: acquired Qualified Code(s): E03.9 - Hypothyroidism, unspecified
[2024-08-29 22:38] LABS: Thyroid Stimulating Hormone 0.141 uIu/ml (0.300-4.500)
[2024-08-29] MEDS: SODIUM CHLORIDE 0.9% 500 ML IV ONE ×2 (22:56→23:25)
[2024-08-29 23:13] LABS: T4 Free Thyroxine 1.04 ng/dl (0.61-1.60)
[2024-08-29] MEDS ORDERED: STAT IV Infusion **Titration per Protocol STA (23:21)
[2024-08-29 23:29] LABS: BUN Creatinine Ratio 18.5 (10-20); Calcium 9.4 mg/dl (8.6-10.3); Creatinine Clr Calc Pharmacy 49.6 ml/min; Potassium 3.8 mmol/L (3.5-5.1)
[2024-08-29] MEDS: ESMOLOL / NSS 2,500 MG/250 ML BAG IV SCH (23:34)
[2024-08-29 23:38] LABS: Acetaminophen < 3 ug/ml (10-30); Salicylate < 3.0 mg/dl (3.0-30)
[2024-08-30] MEDS: PHENYLEPHRINE/NSS 25 MG/250 ML BAG IV SCH (00:27)
[2024-08-30] MEDS: ENOXAPARIN INJ 40 MG/0.4 ML SYR SQ SCH (00:29)
[2024-08-30] MEDS: POTASSIUM CHLORIDE / WTR 10 MEQ/100 ML PLCT IV SCH ×2 (01:54→19:15)
[2024-08-30] MEDS: ACETAMINOPHEN 325 MG TAB PO PRN (03:23)
[2024-08-30] MEDS: ACETAMINOPHEN 1,000 MG/100 ML VIAL IV PRN (04:42)
[2024-08-30 04:47] LABS: HCO3 VBG 14 mmol/L; Oxygen Saturation VBG 95.1 %; PCO2 VBG 24 mmHg (38-50); PO2 VBG 76 mmHg; pH VBG 7.38 (7.36-7.41)
[2024-08-30 04:59] LABS: Hematocrit (blood only) 43.3 % (37.0-47.0); Hemoglobin 14.5 g/dl (12.0-16.0); Mean Corpuscular Hemoglobin 28.8 pg (25.0-34.0); Mean Corpuscular Hgb Conc 33.5 g/dL (32.0-36.0); Mean Corpuscular Volume 86.1 fL (80.0-100.0); Mean Platelet Volume 12.3 fL (9.4-12.4); Platelet Count 283 K/uL (130-400); RDW Coefficient of Variation 11.9 % (11.5-14.5); RDW Standard Deviation 37.9 fL (36.4-46.3); Red Blood Count 5.03 M/uL (4.20-5.40); White Blood Count 14.46 K/ul (4.8-10.8)
[2024-08-30 05:22] LABS: Basophils # (auto) 0.04 K/uL (0.00-0.20); Basophils % (auto) 0.3 %; Echinocytes 1+; Immature Granulocytes # (auto) 0.06 K/uL (0.01-0.20); Immature Granulocytes % (auto) 0.4 %; Lymphocytes # (auto) 0.32 K/uL (1.20-3.40); Lymphocytes % (auto) 2.2 %; Monocytes # (auto) 0.49 K/uL (0.11-0.59); Monocytes % (auto) 3.4 %; Neutrophils # (auto) 13.55 K/uL (1.40-6.50); Neutrophils % (auto) 93.7 %; Polychromasia 1+
[2024-08-30 05:33] LABS: Albumin Globulin Ratio 1.5 (0.9-2); Albumin Level 3.9 gm/dl (3.4-5.0); BUN Creatinine Ratio 17.1 (10-20); Bilirubin,Total 0.4 mg/dl (0.2-1.0); Calcium 8.8 mg/dl (8.6-10.3); Creatinine Clr Calc Pharmacy 57.8 ml/min; Globulin 2.6 gm/dl (2.5-4.0); Magnesium 2.2 mg/dl (1.7-2.4); Potassium 4.1 mmol/L (3.5-5.1); Total Protein 6.5 gm/dl (6.0-8.3); Troponin I High Sensitivity 23.2 pg/ml (0-14)
[2024-08-30] MEDS: D5W AND 1/2NSS 1,000 ML IV SCH (08:06)
[2024-08-30 08:22] LABS: Urine Potassium 8.5 mmol/L
--- NOTE | 2024-08-30 08:44 | Critical Care Progress Note ---
Date of Service August 30, 2024 Assessment & Plan (1) Encephalopathy: (2) SVT (supraventricular tachycardia): (3) UTI (urinary tract infection): (4) Sepsis: (5) Restless leg syndrome: (6) Hypothyroidism: (7) Respiratory alkalosis: (8) SAMEER (acute kidney injury): Plan Reason Critically Ill: 59 YOF admitted to hospital for encephalopathy in setting of SIRS with source possibly urine (sepsis), that had 2 episodes of SVT requiring administration of adenosine. Neuro - Encephalopathy (acute), Thyroid disorder, chronic: Tardive Dyskinesia, Bipolar, mood disturbances CAM ICU: [facility] - At this time encephalopathy multifocal - to include secondary to sepsis/UTI, polypharmacy, marijuana use- although supposedly prescribed - CT head is negative for any acute process - Neuro exam without focal deficits other than memory and speech- however last known well was > 48 hours ago - She does say no to headaches or neck pain, Kernig's negative - Sour John level 1.1 (0.6-1.2) - ETOH <10, tox cream negative except for marijuana - Tylenol and salicylate level negative Patient is afebrile, no clonus or rigidity, unlikely to be serotonin syndrome or NMS - At this time will continue with supportive care- correct fluid volume deficit, electrolyte - At this time she is unlikely to be still for MRI and is unclear at this time if it would add benefit- re- consider if clinical picture changes Cardiac - SVT, sepsis --SVT - no history of dysrhythmia that is known of Could be secondary to underlying sepsis - -Decreased TSH with normal free T3 - TSH is low 0.141 Free T4 normal at 1.04- as free T4 is normal and electrolytes stable less likely Thyroid Storm - Cardiology consulted by primary service- appreciate assistance Respiratory - -- Saturating well on room air -- FAWAD Does not use CPAP GI - NPO until encephalopathy clears RENAL/LYTES - SAMEER on CKD III -- HAGMA Delta-delta: Less than 1, metabolic acidosis gap plus nongap Acidosis probably from starvation ketosis, nongap from urinary loss Serum osmolality 294, urine osmolality 149 Monitor -- SAMEER --> improving Monitor BUN/creatinine Avoid nephrotoxic medications Strict ins and outs Patient's specific gravity of the urine is very low with low serum osmolality, diabetes insipidus like picture is a possibility especially given the patient is on lithium - Urine retention - Gardner placed on arrival to ICU 1400 cc out - dilute - will send urine osmo ENDO - no acute needs - Hx noted as "pre-diabetic" - ICU hyperglycemic protocol HEME - No acute needs see ID section below - results likely ID - Sepsis - Sepsis likely from urine- organ dysfunction - renals, encephalopathy, chest x- ray: - lactate (-), PCT 0.08, urine positive for +3 bacteria and +1 leukocyte esterase - Follow Urine culture - Follow blood cultures - Continue Rocephin --Prophylaxis VTE: Lovenox GI: None Lines: Peripheral Diet: N.p.o. Plan: In/out: -2.7 L, urine output 7350 Patient's specific gravity of the urine is very low with low serum osmolality, diabetes insipidus like picture is a possibility especially given the patient is on lithium Patient is urine output is slowing down. Continue to monitor. If urine output begins to creep up then we will replace with D5 half NS Keep the patient strict NPO. DC esmolol drip and start the patient on metoprolol 5 mg every 4 hours as needed heart rate greater than 120 Cardiology has been consulted Follow-up urine culture, continue with antibiotics She did get Lovenox around midnight. If feasible we will try to do an LP 12-15 hours since her last Lovenox. I do not think patient is stable enough to have an MRI done. I do not think she is going to stay still. I have personally spent 42 minutes of critical care time in the direct management of this patient. This is a life/limb threatening event. This includes time spent evaluating patient, direct bedside care, chart review, placing orders, interpretation of diagnostic studies, discussion with consultants, patient, and family members, as well as other required patient management activities. This time is exclusive of all separately billable procedures, and teaching time and separate from and in addition to any other critical care service time. Please note the above document was generated using voice recognition software. It may contain grammatical, syntax or spelling errors. Admission and Anticipated Discharge Date Admission Date: August 29, 2024 Subjective Patient seen and examined at bedside. No acute distress She is on and off restless. She is oriented only to self Has one-to-one sitter. She was on esmolol drip. Heart rate was in the mid 100s. Systolic blood pressure in the 130s. She was moving all extremities spontaneously. Did have repeated if movement of the lower jaw likely from tardive dyskinesia Tmax 37.5 Review of Systems 2 Review of Systems: Unobtainable due to cognitive status Physical Exam 2 Physical Exam: Constitutional: No acute distress HEENT: EOMI, PERRLA Respiratory system: Good air entry bilaterally, no wheeze, no rhonchi, no crackles CVS: S1-S2 positive, no murmurs or gallops, tachycardia Abdomen: Soft, nontender, nondistended, positive bowel sounds x4 Extremities: +2 pulses bilaterally radialis/ dorsalis pedis, no cyanosis, +1 pitting edema bilateral lower extremity Neuro: Awake alert oriented x3 Psych: Normal mood and affect G/U: Positive Gardner Skin: no rashes, warm and dry Lymphatic: no cervical or axillary lymphadenopathy Results & Data Results & Data Vital Signs (Past 12 Hours) Vital Signs Temp Pulse Pulse Resp BP BP Pulse Ox 08/30/24 08:16 110 H 137/87 08/30/24 06:15 37.3 C 108 H 13 97 08/30/24 05:55 123/94 08/30/24 05:55 123/94 08/30/24 05:55 123/94 08/30/24 05:48 108 H 13 96 08/30/24 05:40 115/80 08/30/24 05:40 115/80 08/30/24 05:40 115/80 08/30/24 05:39 109 H 18 97 08/30/24 05:30 109 H 13 97 08/30/24 05:10 147/84 H 08/30/24 05:10 147/84 H 08/30/24 05:10 147/84 H 08/30/24 05:03 108 H 13 97 08/30/24 05:00 110 H 14 96 08/30/24 04:57 11608/30/24 04:57 11608/30/24 04:57 11608/30/24 04:57 11608/30/24 04:57 108 H 17 97 08/30/24 04:40 106/08/30/24 04:40 10608/30/24 04:40 08/30/24 04:40 10608/30/24 04:39 107 H 13 95 08/30/24 04:30 107 H 24 96 08/30/24 04:26 101/71 08/30/24 04:26 101/71 08/30/24 04:15 111 H 16 98 08/30/24 04:12 145 H 16 96 08/30/24 04:10 123/92 08/30/24 04:10 123/92 08/30/24 04:10 123/92 08/30/24 04:10 123/92 08/30/24 03:55 121/79 08/30/24 03:55 121/79 08/30/24 03:54 113 H 12 97 08/30/24 03:40 129/85 08/30/24 03:40 129/85 08/30/24 03:39 108 H 13 96 08/30/24 03:25 137/82 08/30/24 03:24 140 H 16 96 08/30/24 03:09 37.5 C 110 H 18 97 08/30/24 02:47 116/86 08/30/24 02:36 107 H 16 96 08/30/24 02:33 108 H 11 L 97 08/30/24 02:10 115/86 08/30/24 02:10 115/86 08/30/24 02:09 106 H 29 H 94 08/30/24 01:55 125/91 08/30/24 01:48 107 H 12 96 08/30/24 01:41 134/85 08/30/24 01:41 134/85 08/30/24 01:39 107 H 17 95 08/30/24 01:30 129 H 18 96 08/30/24 01:25 135/93 08/30/24 01:25 135/93 08/30/24 01:25 135/93 08/30/24 01:24 105 H 20 94 08/30/24 01:15 107 H 14 97 08/30/24 01:10 138/83 08/30/24 01:10 138/83 08/30/24 00:55 117/81 08/30/24 00:55 117/81 08/30/24 00:54 104 H 20 95 08/30/24 00:40 126/90 08/30/24 00:39 105 H 22 90 08/30/24 00:29 107 H 109/88 08/30/24 00:25 109/88 08/30/24 00:25 109/88 08/30/24 00:15 106 H 20 97 08/30/24 00:10 117/88 08/30/24 00:10 117/88 08/29/24 23:54 109 H 22 95 08/29/24 23:40 116/78 08/29/24 23:40 116/78 08/29/24 23:34 158 H 133/54 L 08/29/24 23:27 160 H 21 96 08/29/24 23:25 113/54 L 08/29/24 23:24 169 H 21 98 08/29/24 23:18 165 H 17 99 08/29/24 23:11 109/81 08/29/24 23:00 08/29/24 23:00 36.9 C 166 H 24 137/95 96 08/29/24 22:06 36.6 C 94 H 18 145/78 H 98 08/29/24 20:45 36.6 C 93 H 18 122/71 97 O2 Del Method 08/30/24 08:16 08/30/24 06:15 08/30/24 05:55 08/30/24 05:55 08/30/24 05:55 08/30/24 05:48 08/30/24 05:40 08/30/24 05:40 08/30/24 05:40 08/30/24 05:39 08/30/24 05:30 08/30/24 05:10 08/30/24 05:10 08/30/24 05:10 08/30/24 05:03 08/30/24 05:00 08/30/24 04:57 08/30/24 04:57 08/30/24 04:57 08/30/24 04:57 08/30/24 04:57 08/30/24 04:40 08/30/24 04:40 08/30/24 04:40 08/30/24 04:40 08/30/24 04:39 08/30/24 04:30 08/30/24 04:26 08/30/24 04:26 08/30/24 04:15 08/30/24 04:12 08/30/24 04:10 08/30/24 04:10 08/30/24 04:10 08/30/24 04:10 08/30/24 03:55 08/30/24 03:55 08/30/24 03:54 08/30/24 03:40 08/30/24 03:40 08/30/24 03:39 08/30/24 03:25 08/30/24 03:24 08/30/24 03:09 08/30/24 02:47 08/30/24 02:36 08/30/24 02:33 08/30/24 02:10 08/30/24 02:10 08/30/24 02:09 08/30/24 01:55 08/30/24 01:48 08/30/24 01:41 08/30/24 01:41 08/30/24 01:39 08/30/24 01:30 08/30/24 01:25 08/30/24 01:25 08/30/24 01:25 08/30/24 01:24 08/30/24 01:15 08/30/24 01:10 08/30/24 01:10 08/30/24 00:55 08/30/24 00:55 08/30/24 00:54 08/30/24 00:40 08/30/24 00:39 08/30/24 00:29 08/30/24 00:25 08/30/24 00:25 08/30/24 00:15 08/30/24 00:10 08/30/24 00:10 08/29/24 23:54 08/29/24 23:40 08/29/24 23:40 08/29/24 23:34 08/29/24 23:27 08/29/24 23:25 08/29/24 23:24 08/29/24 23:18 08/29/24 23:11 08/29/24 23:00 Room Air 08/29/24 23:00 Room Air 08/29/24 22:06 Room Air 08/29/24 20:45 Room Air Laboratory Results 08/30/24 04:27 08/30/24 04:27 Coding Level of Care Code 43195 CRITICAL CARE 1ST 30-74M Diagnoses Encephalopathy G93.40 SVT (supraventricular tachycardia) I47.10 UTI (urinary tract infection) N39.0 Sepsis A41.9 Restless leg syndrome G25.81 Acquired hypothyroidism E03.9 Hypothyroidism type: acquired Respiratory alkalosis E87.3 SAMEER (acute kidney injury) N17.9 (6) Hypothyroidism Hypothyroidism type: acquired Qualified Code(s): E03.9 - Hypothyroidism, unspecified
--- NOTE | 2024-08-30 09:08 | Electrocardiogram Report ---
Test Reason : Blood Pressure : */* mmHG Vent. 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 rate has increased by 59 bpm QT has lengthened Confirmed by Jose Luis Rey ([id number]) on 08/30/2024 9:08:13 AM Referred By: REFERRED SELF Confirmed By: Jose Luis Rey
--- NOTE | 2024-08-30 09:09 | Electrocardiogram Report ---
Test Reason : Blood Pressure : */* mmHG Vent. Rate : 159 BPM Atrial Rate : * BPM P-R Int : * ms QRS Dur : 90 ms QT Int : 292 ms P-R-T Axes : * 20 213 degrees QTcB Int : 474 ms Supraventricular tachycardia Possible Old Anterior infarct (cited on or before 14-Jun-2013) Diffuse Nonspecific ST and T wave abnormality Abnormal ECG When compared with ECG of 29-Aug-2024 19:24, No significant change Confirmed by Jose Luis Rey ([id number]) on 08/30/2024 9:09:49 AM Referred By: REFERRED SELF Confirmed By: Jose Luis Rey
--- NOTE | 2024-08-30 09:09 | Electrocardiogram Report ---
Test Reason : Blood Pressure : */* mmHG Vent. Rate : 166 BPM Atrial Rate : * BPM P-R Int : * ms QRS Dur : 84 ms QT Int : 284 ms P-R-T Axes : * 45 219 degrees QTcB Int : 471 ms Supraventricular tachycardia Possible Old Anterior infarct (cited on or before 14-Jun-2013) Diffuse Nonspecific ST and T wave abnormality Abnormal ECG When compared with ECG of 29-Aug-2024 18:39, Supraventricular tachycardia now present Vent. rate has increased by [address] and T wave abnormality now present Confirmed by Jose Luis Rey ([id number]) on 08/30/2024 9:08:47 AM Referred By: REFERRED SELF Confirmed By: Jose Luis Rey
--- NOTE | 2024-08-30 09:09 | Electrocardiogram Report ---
Test Reason : Blood Pressure : */* mmHG Vent. Rate : 101 BPM Atrial Rate : 101 BPM P-R Int : 190 ms QRS Dur : 86 ms QT Int : 318 ms P-R-T Axes : 51 31 114 degrees QTcB Int : 412 ms Sinus tachycardia Possible Old Anterior infarct (cited on or before 14-Jun-2013) Abnormal ECG When compared with ECG of 29-Aug-2024 19:10, Supraventricular tachycardia no longer present Vent. rate has decreased by [address] and T wave abnormality no longer present Confirmed by Jose Luis Rey ([id number]) on 08/30/2024 9:09:10 AM Referred By: REFERRED SELF Confirmed By: Jose Luis Rey
--- NOTE | 2024-08-30 09:10 | Electrocardiogram Report ---
Test Reason : Blood Pressure : */* mmHG Vent. Rate : 94 BPM Atrial Rate : 94 BPM P-R Int : 200 ms QRS Dur : 84 ms QT Int : 372 ms P-R-T Axes : 43 20 103 degrees QTcB Int : 465 ms Normal sinus rhythm Possible Old Anterior infarct (cited on or before 14-Jun-2013) Diffuse Minor Nonspecific T wave abnormality Abnormal ECG When compared with ECG of 29-Aug-2024 19:26, Supraventricular tachycardia no longer present Vent. rate has decreased by [address] and T wave abnormality less pronounced Confirmed by Jose Luis Rey ([id number]) on 08/30/2024 9:10:38 AM Referred By: REFERRED SELF Confirmed By: Jose Luis Rey
[2024-08-30] MEDS: METOPROLOL TARTRATE 1 MG/ML VIAL IV PRN (10:00)
--- NOTE | 2024-08-30 10:17 | XCELERA ---
[id number]\[id number]
[2024-08-30] MEDS: LEVOTHYROXINE SODIUM IV SCH (11:05)
[2024-08-30 11:24] LABS: Phosphorus 3.9 mg/dl (2.5-4.9)
--- NOTE | 2024-08-30 11:48 | Hospitalist Progress Note ---
Date of Service August 30, 2024 Assessment & Plan (1) SAMEER (acute kidney injury): (2) Respiratory alkalosis: (3) Sepsis: (4) Encephalopathy: (5) UTI (urinary tract infection): Plan 1. Acute encephalopathy. Probably metabolic. CT head negative. [place] level acceptable. Talk screen negative other than marijuana. No fever. No rigidity. Patient is on psychiatric medications but presents with no features to suggest NMS or serotonin syndrome. Patient is not able to reliably lay still for MRI. An LP is being considered. Continue n.p.o. 2. UTI. IV Rocephin. Follow urine culture results 3. Leukocytosis probably secondary to #2. Monitor. LP is being considered 4. Recurrent SVT. TSH is low but free T4 is normal. Ordered free T3. Unlikely to be thyroid storm. Cardiology involved. Patient was being treated with esmolol overnight. Esmolol drip discontinued. Patient had another episode of SVT after esmolol drip was discontinued. Cardiology is considering starting amiodarone drip. Echocardiogram negative 5. History of bipolar disorder on multiple medications. Med rec is pending at the time of this dictation. She is on chronic lithium therapy. Level has been obtained it is 1.1. Reassuring. 6. History of medicinal marijuana use. Toxicology is positive for marijuana but otherwise negative for drugs of abuse. 7. Hypovolemia dehydration. Continue to hydrate. Lactated Ringer's 125 an hour. 8. Acute kidney injury. Prerenal. Resolved with hydration 9. Acute metabolic acidosis probably secondary to infection and acute kidney injury. Monitor. 10. Mildly elevated troponin. 18.6. Remains flat. Most likely demand ischemia. 11. Obesity. 12. History of peripheral neuropathy. 13. History of restless leg syndrome. Follows with neurology. 14. History of poor memory per neurology's note from August 06, 2024. 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 15. Tremor. Chronic. Patient will continue to be in the ICU. Spoke to brother at the bedside to update him. Considering LP today Admission and Anticipated Discharge Date Admission Date: August 29, 2024 Subjective Patient was seen and examined at 11 AM. Patient was seen in the presence of nurse, data integrity consultant, brother in the room. Per nurse, there is no change in her mental status. She remains confused and restless. She is hardly able to talk. A sitter is in the room. No fever noted. Review of Systems Review of Systems: Unobtainable due to cognitive status Physical Exam Physical Exam: General: Patient is unable to talk to me. She was noted to have a tardive dyskinesia. Appears slightly restless in bed. Her eyes are open but she is not able to communicate. She does not follow commands Heart: S1, S2/regular rate and rhythm, no murmur rubs or gallops Lungs: Clear to auscultation bilaterally. Normal effort Abdomen: Soft/nontender/nondistended. No hepatosplenomegaly Extremities: No clubbing/cyanosis. No edema Behavior: Unable to assess Results & Data Results & Data Vital Signs (Past 12 Hours) Vital Signs Temp Pulse Resp BP Pulse Ox 08/30/24 11:12 37.1 C 08/30/24 10:23 83 105/82 08/30/24 10:06 114 H 18 95 08/30/24 10:04 105/82 08/30/24 10:00 164 H 128/95 08/30/24 09:57 95 H 15 96 08/30/24 09:49 86 127/70 08/30/24 09:46 127/70 08/30/24 09:42 80 24 96 08/30/24 09:34 138/100 08/30/24 09:33 108 H 14 96 08/30/24 09:29 133/84 08/30/24 09:24 109 H 14 96 08/30/24 09:16 119/87 08/30/24 09:15 114 H 20 95 08/30/24 08:16 110 H 137/87 08/30/24 08:03 111 H 08/30/24 08:03 135 H 17 96 08/30/24 07:57 127/87 08/30/24 07:27 109 H 16 95 08/30/24 07:00 110 H 17 95 08/30/24 06:15 37.3 C 108 H 13 97 08/30/24 05:55 123/94 08/30/24 05:55 123/94 08/30/24 05:55 123/94 08/30/24 05:48 108 H 13 96 08/30/24 05:40 115/80 08/30/24 05:40 115/80 08/30/24 05:40 115/80 08/30/24 05:39 109 H 18 97 08/30/24 05:30 109 H 13 97 08/30/24 05:10 147/84 H 08/30/24 05:10 147/84 H 08/30/24 05:10 147/84 H 08/30/24 05:03 108 H 13 97 08/30/24 05:00 110 H 14 96 08/30/24 04:57 116/88 08/30/24 04:57 116/88 08/30/24 04:57 116/88 08/30/24 04:57 116/88 08/30/24 04:57 108 H 17 97 08/30/24 04:40 106/84 08/30/24 04:40 106/84 08/30/24 04:40 106/84 08/30/24 04:40 106/84 08/30/24 04:39 107 H 13 95 08/30/24 04:30 107 H 24 96 08/30/24 04:26 101/71 08/30/24 04:26 101/71 08/30/24 04:15 111 H 16 98 08/30/24 04:12 145 H 16 96 08/30/24 04:10 123/92 08/30/24 04:10 123/92 08/30/24 04:10 123/92 08/30/24 04:10 123/92 08/30/24 03:55 121/79 08/30/24 03:55 121/79 08/30/24 03:54 113 H 12 97 08/30/24 03:40 129/85 08/30/24 03:40 129/85 08/30/24 03:39 108 H 13 96 08/30/24 03:25 137/82 08/30/24 03:24 140 H 16 96 08/30/24 03:09 37.5 C 110 H 18 97 08/30/24 02:47 116/86 08/30/24 02:36 107 H 16 96 08/30/24 02:33 108 H 11 L 97 08/30/24 02:10 115/86 08/30/24 02:10 115/86 08/30/24 02:09 106 H 29 H 94 08/30/24 01:55 125/91 08/30/24 01:48 107 H 12 96 02/02/25 01:41 134/85 08/30/24 01:41 134/85 08/30/24 01:39 107 H 17 95 08/30/24 01:30 129 H 18 96 08/30/24 01:25 135/93 08/30/24 01:25 135/93 08/30/24 01:25 135/93 08/30/24 01:24 105 H 20 94 08/30/24 01:15 107 H 14 97 08/30/24 01:10 138/83 08/30/24 01:10 138/83 08/30/24 00:55 117/81 08/30/24 00:55 117/81 08/30/24 00:54 104 H 20 95 08/30/24 00:40 126/90 08/30/24 00:39 105 H 22 90 08/30/24 00:29 107 H 109/88 08/30/24 00:25 109/88 08/30/24 00:25 109/88 08/30/24 00:15 106 H 20 97 08/30/24 00:10 117/88 08/30/24 00:10 117/88 08/29/24 23:54 109 H 22 95 Laboratory Results Abnormal lab results 08/29/24 08/29/24 08/29/24 Range/Units 18:40 19:36 21:50 WBC 18.12 H (4.8-10.8) K/ul RBC 5.83 H (4.20-5.40) M/uL Hgb 17.1 H (12.0-16.0) g/dl Hct 49.5 H (37.0-47.0) % RDW Std Deviation 36.2 L (36.4-46.3) fL Neut # (Auto) 17.00 H (1.40-6.50) K/uL Lymph # (Auto) 0.39 L (1.20-3.40) K/uL VBG pH 7.47 H (7.36-7.41) VBG pCO2 22 L (38-50) mmHg Sodium 134 L (136-145) mmol/L Chloride (98-107) mmol/L Carbon Dioxide 18 L (21-32) mmol/L Anion Gap 16 H (3-11) BUN 25 H (6-23) mg/dl Creatinine 1.59 H (0.6-1.2) mg/dl Glucose 149 H (70-99(Fasting)) mg/dl Alkaline Phosphatase 185 H (34-104) U/L Troponin I High Sens 18.6 H 23.0 H (0-14) pg/ml TSH 0.141 L (0.300-4.500) uIu/ml Urine Protein Trace H (Negative) Urine Ketones 1+ H (Negative) Urine Nitrite Positive A (Negative) Ur Leukocyte Esterase Trace H (Negative) U Hyaline Cast (Auto) 3-5 H (0-2) /lpf Urine Bacteria (Auto) 3+ H (None Seen) Urine Osmolality (500-800) mOsm/kg Salicylates (3.0-30) mg/dl Acetaminophen (10-30) ug/ml U Marijuana (THC) Screen Pos H (Neg) 08/29/24 08/29/24 08/30/24 Range/Units 22:49 Unknown 04:27 WBC 14.46 H (4.8-10.8) K/ul RBC (4.20-5.40) M/uL Hgb (12.0-16.0) g/dl Hct (37.0-47.0) % RDW Std Deviation (36.4-46.3) fL Neut # (Auto) 13.55 H (1.40-6.50) K/uL Lymph # (Auto) 0.32 L (1.20-3.40) K/uL VBG pH (7.36-7.41) VBG pCO2 24 L (38-50) mmHg Sodium (136-145) mmol/L Chloride 110 H 118 H (98-107) mmol/L Carbon Dioxide 16 L 14 L (21-32) mmol/L Anion Gap 14 H 13 H (3-11) BUN 24 H (6-23) mg/dl Creatinine 1.30 H (0.6-1.2) mg/dl Glucose 128 H 130 H (70-99(Fasting)) mg/dl Alkaline Phosphatase 143 H (34-104) U/L Troponin I High Sens 23.2 H (0-14) pg/ml TSH (0.300-4.500) uIu/ml Urine Protein (Negative) Urine Ketones (Negative) Urine Nitrite (Negative) Ur Leukocyte Esterase (Negative) U Hyaline Cast (Auto) (0-2) /lpf Urine Bacteria (Auto) (None Seen) Urine Osmolality 149 L (500-800) mOsm/kg Salicylates < 3.0 L (3.0-30) mg/dl Acetaminophen < 3 L (10-30) ug/ml U Marijuana (THC) Screen (Neg) Diagnostic Findings Chest X-Ray 08/29/24 18:34 EXAM: Portable AP chest radiograph TECHNIQUE: AP portable radiograph of the chest was obtained. INDICATION: Shortness of breath. Concern for sepsis Comparison: Chest radiograph December 29, 2022 FINDINGS: LINES and TUBES: None CARDIOVASCULAR: Cardiac silhouette is stably and mildly enlarged in size. LUNGS/PLEURA: No focal consolidation identified. No significant pleural fluid. No discernible pneumothorax. OSSEOUS/OTHER: No displaced acute osseous process identified. IMPRESSION: No radiographic evidence of acute cardiopulmonary process. Electronically signed by Neftaly Sunshine 08-29-2024 7:[address] 08/29/24 18:34 Exam: CT scan of the head without contrast only: Reason for exam: Altered mental status COMPARISON: 10/09/2021. FINDINGS: Study is somewhat limited by motion however no definite evidence of intracranial mass, hemorrhage or edema is seen at this time. Ventricular size normal without midline shift or extra-axial blood/fluid collection. Mastoids remain well-aerated. Visualized paranasal sinuses remain well aerated. No acute process of the bony calvarium is identified. IMPRESSION: 1. Study limited by motion. 2. Within these limitations no gross evidence of acute intracranial process seen on unenhanced head CT study at this time. Electronically signed by Collin Mora 08-29-2024 7:04 PM PG Care Time/CCT Total # of Minutes Spent Total Time Spent with Patient: Total time spent is greater than 50% in coordination of care (as documented) at patient's floor/unit and/or counseling patient: Coding Level of Care Code 01253 SUB INP/OBS CARE 2/35MIN Diagnoses SAMEER (acute kidney injury) N17.9 Respiratory alkalosis E87.3 Sepsis A41.9 Encephalopathy G93.40 UTI (urinary tract infection) N39.0
--- NOTE | 2024-08-30 13:16 | Cardiology Consultation ---
Date of Consultation August 30, 2024 Assessment & Plan (1) SVT (supraventricular tachycardia): Recurrent supraventricular tachycardia in 59-year-old woman with no cardiac history admitted with altered mental status felt to be metabolic. Suspect hyperadrenergic milieu of agitation/confusion is eliciting an otherwise latent tendency to supraventricular tachycardia. No other obvious etiology, mildly reduced TSH but normal T3/T4, electrolytes including lithium unremarkable, minor troponin elevation consistent with trivial demand ischemia secondary to tachycardia. Although she is tolerating the tachycardic episodes well and there is no indication that they contribute to her altered mental status, the degree of tachycardia (up to 166 bpm) and the frequent recurrence (multiple times per hour) merit treatment in addition to rate control with esmolol. Had considered amiodarone, but since she was on lithium recently and may have a long QT as result, this is problematic. Will check repeat ECG now, if QT has normalized could consider antiarrhythmic while she is off lithium, would prefer procainamide over amiodarone however since this would washout much more quickly and allow her to restart lithium sooner. Further make recommendations based on review of ECG today. Although this could be atrial flutter, it is equally likely to be an SVT. Since it is nonsustained, anticoagulation is not indicated at this point. Defer determination of chronic anticoagulation until rhythm is better characterized. (2) AMS (altered mental status): Etiology uncertain, but given normotensive BP during tachycardia and persistence of mental status changes even in the absence of SVT, no indication this is hemodynamically mediated. (3) Bipolar 1 disorder: As noted, she was on lithium, this is being held. The level was therapeutic. The tendency to prolong QT may impact use of antiarrhythmics. History of Present Illness Reason for Consultation: SVT Requesting Physician: Qi Shay MD Attending Physician: Qi Shay MD History of Present Illness 59-year-old woman with history of bipolar disorder (on lithium) and recurrent UTIs, no known cardiac history, admitted last evening with acute confusion felt to be metabolic and incidentally noted to have recurrent supraventricular tachycardia. Due to confusion, patient unable to offer history. Serial ECGs showed intermittent supraventricular tachycardia at rates of up to 166 bpm (mechanism unclear) alternating with mild sinus tachycardia with a possible old anterior infarct. Nonspecific ST-T wave abnormalities during SVT but not during sinus tachycardia. QTc on initial ECG appears prolonged, difficult to interpret on subsequent ECGs due to tachycardia/wandering baseline. Troponin curve flat (range 1823). Echocardiogram showed EF 65 to 70% with normal LVEF and wall motion, normal RVSP, no significant valvular disease. Telemetry has shown mild sinus tachycardia with frequent brief episodes of supraventricular tachycardia lasting seconds to a few minutes at a time. Intravenous esmolol was only partially effective in controlling rate and has not been effective in controlling rhythm. At the time of my evaluation this morning, the patient was awake but nonverbal and did not appear distressed. Allergies Allergy/AdvReac Type Severity Reaction Status Date / Time budesonide Allergy Unknown Unknown Verified 08/06/24 13:02 cyclobenzaprine Allergy Unknown severe Verified 08/06/24 13:02 depression latex Allergy Unknown lehman; Verified 08/06/24 13:02 leaves a vani on skin NSAIDS (Non-Steroidal Allergy Unknown Gastrointestinal Verified 08/06/24 13:02 Anti-Inflamma Upset psyllium [From Metamucil] Allergy Unknown Wheezing Verified 08/06/24 13:02 quetiapine [From Seroquel] Allergy Unknown tardive Verified 08/06/24 13:02 dyskinesia strawberry Allergy Unknown Hives Verified 08/06/24 13:02 prednisone AdvReac Nightmare Verified 08/06/24 13:02 Home Medications Medication Instructions Recorded Confirmed Type sertraline 100 mg tablet (Zoloft) 200 mg PO QAM 02/18/20 08/29/24 History lithium carbonate 300 mg capsule 600 mg PO QPM 08/31/22 08/29/24 History Spacer for Inhaler #1 ea 07/09/23 08/29/24 Rx omeprazole 40 mg capsule,delayed 40 mg PO BID #180 caps 11/12/23 08/29/24 Rx release zoledronic acid 5 mg/100 mL in 1 ea IV UD 11/13/23 08/29/24 History mannitol 5 %-water intravenous piggybck (Reclast) carbidopa 25 mg-levodopa 100 mg 1 tab PO .COMPLEX PRN breakthrough 06/29/24 08/29/24 Rx tablet RLS sx 30 days #60 tabs levothyroxine 112 mcg tablet See Rx Instructions .Route 06/29/24 08/29/24 Rx .COMPLEX #108 tabs linaclotide 290 mcg capsule 290 mcg PO DAILY #90 caps 07/30/24 08/29/24 Rx (Linzess) clonidine HCl 0.1 mg tablet 0.1 mg PO QAM 08/06/24 08/29/24 History topiramate 25 mg tablet 25 mg PO QAM #30 tabs 08/19/24 08/29/24 Rx topiramate 50 mg tablet 50 mg PO QPM 08/19/24 08/29/24 History Zepbound 7.5 mg/0.5 mL 7.5 mg (0.5 mL) subcut Q7D #2 mL 08/26/24 08/29/24 Rx subcutaneous pen injector (tirzepatide (weight loss)) albuterol sulfate 90 mcg/actuation 1 inh inhalation QID 08/29/24 08/29/24 History breath activated powder inhaler (ProAir RespiClick) amantadine HCl 100 mg tablet 100 mg PO BID 08/29/24 08/29/24 History carbidopa ER 50 mg-levodopa 200 mg 1 tab PO TID 08/29/24 08/29/24 History tablet,extended release clonazepam 1 mg tablet 1 mg PO DAILY PRN Anxiety 08/29/24 08/29/24 History clonidine HCl 0.1 mg tablet 0.2 mg PO HS 08/29/24 08/29/24 History doxepin 10 mg capsule 10 mg PO HS 08/29/24 08/29/24 History famotidine 40 mg tablet 40 mg PO DAILY 08/29/24 08/29/24 History gabapentin 300 mg capsule 300 mg PO BID 08/29/24 08/29/24 History lamotrigine 150 mg tablet 150 mg PO BID 08/29/24 08/29/24 History lithium carbonate 300 mg capsule 300 mg PO QAM 08/29/24 08/29/24 History montelukast 10 mg tablet 10 mg PO DAILY 08/29/24 08/29/24 History Patient History Medical History Stomach problems GI EVAL/TESTING DR MONDRAGON - RECENT TESTING PER PT: COLONOSCOPY/ENDOSCOPY/UPPER GI TO DUODENUM NO SIGNIFICANT FINDINGS PER PT UPCOMING EMT B APPOINTMENT Sleep apnea BORDERLINE, NO DEVICE WAS RECOMMENDED Iron deficiency anemia 3 IV IRON INFUSIONS - MOST RECENT LAST WEEK Thrush, oral APPROX 3 X OVER THE PAST 6 MON & CURRENT Restless leg syndrome GERD (gastroesophageal reflux disease) UTI symptoms states has occ symptoms - DENIES CURRENT SYMPTOMS Levoscoliosis 25 degree lumbar L1-4 Lumbar facet joint syndrome Lumbar spondylosis Incisional hernia of anterior abdominal wall without obstruction or gangrene ? Allergic rhinitis due to pollen History of anesthesia reaction difficulty waking up with gastric bypass sx Osteoarthritis Sciatic leg pain left Chronic back pain Chronic kidney disease, stage 3 Prediabetes PT NOT SURE Depression Anxiety Tardive dyskinesia HX Asthma inhaler prn- well controlled - LAST USE PRN INHALER 4-5 DAYS AGO D/T WEATHER Surgical History S/P parathyroidectomy S/P hernia repair S/P cataract extraction left History of endoscopy History of colonoscopy History of section History of dilatation and curettage History of endometrial ablation History of bilateral tubal ligation History of carpal tunnel surgery of right wrist History of carpal tunnel surgery of left wrist x2 History of cholecystectomy History of gastric bypass History of tonsillectomy Family History Brother Family history of diabetes mellitus Diabetes Hypertension Father Family history of diabetes mellitus Diabetes Heart disease Hypertension Bipolar 1 disorder Aunt Family history of diabetes mellitus Grandfather (Paternal) Family history of diabetes mellitus Grandmother (Paternal) Family history of diabetes mellitus Cancer Abdominal aneurysm Mother Asthma Heart disease Hypertension Environmental allergies Grandmother (Maternal) Ovarian cancer Grandfather (Maternal) Lung cancer Other No family history of adverse response to anesthesia No family history of bleeding disorder Denies family history of Prostate cancer Myocardial infarction Breast cancer Colorectal cancer Social History Smoking Status: Former smoker Tobacco Type: Declines Age Started Using Tobacco: 17; Age Quit Using Tobacco: 34; packs per day: 0.25; Cigarettes Per Day: HX SMOKED FOR A SHORT TIME; Second Hand Exposure: No; Do You Dip or Chew Tobacco: No; Hx Alcohol Use: No Hx Substance Use: No Preferred Language: Armenian Communication Ability: Impaired Visual Impairment: Diminished Hearing Ability: Normal Family Worker Required: No Beliefs That Will Affect Care: None marital status: Single Current Living Situation: Alone Current Living Situation Comment: [address] current occupational status: employed 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 BP 105/82 mmHg. Pulse 90 bpm and regular. Respirations 18 and unlabored. Skin: no ecchymoses or generalized lesions. HEENT: unremarkable. Neck: JVP at the clavicle at 90 degrees, no carotid bruits. Lungs: clear bilaterally. Cardiac: regular rhythm, normal S1-2, no murmur. Abdomen: benign. Extremities: no edema, pulses intact. Neurologic: Awake but nonverbal, grossly nonfocal. Results & Data Laboratory Results WBC 14.5, normal hemoglobin and platelet count. Potassium 4.1, magnesium 2.2, BUN 19, creatinine 1.11. [place] level 1.1. Lactate 1.9 yesterday. TSH 0.141 (low), free T41.04 (normal), free T32.65 (normal). Random cortisol greater than 60. Procalcitonin 0.08. Diagnostic Findings Chest x-ray unremarkable. ECG and echo as per HPI. PG Care Time/CCT Total # of Minutes Spent Total Time Spent with Patient: Total time spent is greater than 50% in coordination of care (as documented) at patient's floor/unit and/or counseling patient: Coding Level of Care Code 12760 IN/OBS CONSULT LVL 5,80M Diagnoses SVT (supraventricular tachycardia) I47.10 AMS (altered mental status) R41.82 Bipolar 1 disorder F31.9
--- NOTE | 2024-08-30 14:12 | Electrocardiogram Report ---
Test Reason : Blood Pressure : */* mmHG Vent. Rate : 84 BPM Atrial Rate : 84 BPM P-R Int : 200 ms QRS Dur : 74 ms QT Int : 356 ms P-R-T Axes : 58 28 229 degrees QTcB Int : 420 ms Sinus rhythm with occasional Premature ventricular complexes Possible Old Septal infarct (cited on or before 14-Jun-2013) T-wave inversion in Anterior leads Abnormal ECG When compared with ECG of 29-Aug-2024 23:44, Premature ventricular complexes are now Present IA interval has decreased T wave inversion more evident in Anterior leads Confirmed by Jose Luis Rey ([id number] on 08/30/2024 2:11:36 PM Referred By: REFERRED SELF Confirmed By: Jose Luis Rey
[2024-08-30] MEDS: VANCOMYCIN HCL 2,000 MG in SODIUM CHLORIDE 0.9% 500 ML IV ONE (16:55)
[2024-08-30 17:43] LABS: BUN Creatinine Ratio 18.8 (10-20); Calcium 9.9 mg/dl (8.6-10.3); Creatinine Clr Calc Pharmacy 57.7 ml/min; Potassium 3.4 mmol/L (3.5-5.1)
[2024-08-30] MEDS: SODIUM CHLORIDE 0.45 % 1,000 ML IV SCH ×2 (18:27→20:35)
[2024-08-30] MEDS: DESMOPRESSIN ACETATE 1 MCG in SODIUM CHLORIDE 0.9% 50 ML IV SCH (18:30)
[2024-08-30 19:03] LABS: BUN Creatinine Ratio 18.1 (10-20); Creatinine Clr Calc Pharmacy 55.7 ml/min; Potassium 3.3 mmol/L (3.5-5.1)
[2024-08-30] MEDS: cefTRIAXone SODIUM 2,000 MG/50 ML BAG IV SCH (19:15)
[2024-08-30] MEDS: DESMOPRESSIN ACETATE 1 MCG in SODIUM CHLORIDE 0.9% 50 ML IV STA (19:15)
[2024-08-30] MEDS: DEXTROSE 5% 1,000 ML IV SCH (20:36)
--- NOTE | 2024-08-30 22:33 | Communication Note ---
Date of Service: August 30, 2024 Patient with increasing serum NA to 154 and remains with large dilute urine volume as well as low urine osmo. 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 Min Nephrology as well and as above, will also hold on further DDAVP at this time - Primary ICU attending also updated as case was discussed with him at shift change as well. [place] ([facility]-)
[2024-08-30 22:58] LABS: BUN Creatinine Ratio 17.7 (10-20); Calcium 9.1 mg/dl (8.6-10.3); Creatinine Clr Calc Pharmacy 57.2 ml/min; Potassium 3.5 mmol/L (3.5-5.1)
[2024-08-30] MEDS: POTASSIUM CHLORIDE 40 MEQ in SODIUM CHLORIDE 0.45 % 1,000 ML IV SCH (23:45)
[2024-08-31 02:35] LABS: BUN Creatinine Ratio 16.4 (10-20); Calcium 8.7 mg/dl (8.6-10.3); Creatinine Clr Calc Pharmacy 55.7 ml/min; Potassium 3.5 mmol/L (3.5-5.1)
[2024-08-31 05:13] LABS: Magnesium 2.4 mg/dl (1.7-2.4)
[2024-08-31 05:25] LABS: Basophils # (auto) 0.04 K/uL (0.00-0.20); Basophils % (auto) 0.2 %; Eosinophils # (auto) 0.01 K/uL (0.00-0.50); Eosinophils % (auto) 0.1 %; Hematocrit (blood only) 44.3 % (37.0-47.0); Hemoglobin 14.1 g/dl (12.0-16.0); Immature Granulocytes # (auto) 0.05 K/uL (0.01-0.20); Immature Granulocytes % (auto) 0.3 %; Lymphocytes # (auto) 0.69 K/uL (1.20-3.40); Mean Corpuscular Hemoglobin 28.5 pg (25.0-34.0); Mean Corpuscular Hgb Conc 31.8 g/dL (32.0-36.0); Mean Corpuscular Volume 89.7 fL (80.0-100.0); Mean Platelet Volume 12.6 fL (9.4-12.4); Monocytes % (auto) 7.6 %; Neutrophils # (auto) 15.07 K/uL (1.40-6.50); Neutrophils % (auto) 87.8 %; Platelet Count 257 K/uL (130-400); RDW Coefficient of Variation 12.7 % (11.5-14.5); RDW Standard Deviation 41.5 fL (36.4-46.3); Red Blood Count 4.94 M/uL (4.20-5.40); White Blood Count 17.16 K/ul (4.8-10.8)
[2024-08-31 07:06] LABS: BUN Creatinine Ratio 16.2 (10-20); Calcium 9.5 mg/dl (8.6-10.3); Creatinine Clr Calc Pharmacy 58.2 ml/min; Potassium 4.3 mmol/L (3.5-5.1)
[2024-08-31] MEDS ORDERED: LEVOTHYROXINE SODIUM IV SCH (09:00)
--- NOTE | 2024-08-31 09:46 | Nephrology Consultation ---
Date of Consultation August 31, 2024 Assessment & Plan (1) Hypernatremia: Free water deficit remains ~5 L. She is NPO. D5W infusing. At a urine output of ~3 L/d and UoSm of ~200, ~230+ ml/hr of free water will be required to maintain an appropriate rate of correction. I would recommend that the rate of D5w be increased. The medical record indicates that there are 2 infusions running: D5W as well as 1/2 NS+ KCl; only D5W was running when I was in the patient's room. Ana also remains slightly volume depleted on exam. If she remains NPO, I would suggest IVF's at a rate of ~250 ml/hr. Repeat serum sodium is scheduled for noon. (2) Nephrogenic diabetes insipidus: Attributed to [place] use. Unclear if this is acute or chronic. No response to DDAVP. I do not suspect the medication to provide significant benefit. Amiloride and thiazide diuretics have been held for now. Continue IV free water. Monitor sodium closely. With urine osmolality of 200, I suspect we will see improvement once Ana is able to start drinking. (3) Tyler Run adverse reaction: History of hyperparathyroidism, long QTc, and nephrogenic DI. Ultimately, I suspect these findings all reflect lithium toxicity and I would suggest that alternative therapy be considered moving forward. (4) Encephalopathy: Etiology unclear. Clinically improving. LP scheduled for this AM. (5) Bipolar 1 disorder: History of Present Illness Reason for Consultation: DI - hypernatremia- likely secondary to lithium Requesting Physician: Bety Barry MD Attending Physician: Bety Barry MD History of Present Illness Ana Trujillo is a 59 year-old female with bipolar disorder with depression, RLS, essential tremors, hypothyroidism, and history of primary hyperparathyroidism (s/p parathyroidectomy). She presented to [facility] on August 29 with mental status changes. Evaluation notable for episodes of self-limited SVT. EKG demonstrating prolonged QTc. Ana has been observed in the ICU. Serum sodium on admission 134 mmol/L. Sodium increased to 156 mmol/L within 24 hours in the setting of polyuria. UOP documented at ~9 L within the first 24 hours of admission. Urine osmolality ~200 mOsm/L. She was noted to be volume depleted and hypokalemic. Potassium replacement and IVF with dextrose and NaCl have been provided. I was contacted by the ICU last night due to concerns for diabetes insipidus. Following the administration of DDAVP 2 mg urine osmolality remained ~200. Serum lithium level on admission was ~1.1. Creatinine normal. Urine output is slowing. Mental status reportedly improving. Ana was awake and present this AM. She is not oriented and was not able to provide any history. During our conversation she would often echo back to me what I had said. Her affect is blunted. She follows commands. She does state that she is thirst. Gardner is draining dilute urine. Urine output has slowed slightly. UOP documented at 1.1 L overnight. Allergies Allergy/AdvReac Type Severity Reaction Status Date / Time budesonide Allergy Unknown Unknown Verified 08/06/24 13:02 cyclobenzaprine Allergy Unknown severe Verified 08/06/24 13:02 depression latex Allergy Unknown lehman; Verified 08/06/24 13:02 leaves a vani on skin NSAIDS (Non-Steroidal Allergy Unknown Gastrointestinal Verified 08/06/24 13:02 Anti-Inflamma Upset psyllium [From Metamucil] Allergy Unknown Wheezing Verified 08/06/24 13:02 quetiapine [From Seroquel] Allergy Unknown tardive Verified 08/06/24 13:02 dyskinesia strawberry Allergy Unknown Hives Verified 08/06/24 13:02 prednisone AdvReac Nightmare Verified 08/06/24 13:02 Home Medications Medication Instructions Recorded Confirmed Type sertraline 100 mg tablet (Zoloft) 200 mg PO QAM 02/18/20 08/29/24 History lithium carbonate 300 mg capsule 600 mg PO QPM 08/31/22 08/29/24 History Spacer for Inhaler #1 ea 07/09/23 08/29/24 Rx omeprazole 40 mg capsule,delayed 40 mg PO BID #180 caps 11/12/23 08/29/24 Rx release zoledronic acid 5 mg/100 mL in 1 ea IV UD 11/13/23 08/29/24 History mannitol 5 %-water intravenous piggybck (Reclast) carbidopa 25 mg-levodopa 100 mg 1 tab PO .COMPLEX PRN breakthrough 06/29/24 08/29/24 Rx tablet RLS sx 30 days #60 tabs levothyroxine 112 mcg tablet See Rx Instructions .Route 06/29/24 08/29/24 Rx .COMPLEX #108 tabs linaclotide 290 mcg capsule 290 mcg PO DAILY #90 caps 07/30/24 08/29/24 Rx (Linzess) clonidine HCl 0.1 mg tablet 0.1 mg PO QAM 08/06/24 08/29/24 History topiramate 25 mg tablet 25 mg PO QAM #30 tabs 08/19/24 08/29/24 Rx topiramate 50 mg tablet 50 mg PO QPM 08/19/24 08/29/24 History Zepbound 7.5 mg/0.5 mL 7.5 mg (0.5 mL) subcut Q7D #2 mL 08/26/24 08/29/24 Rx subcutaneous pen injector (tirzepatide (weight loss)) albuterol sulfate 90 mcg/actuation 1 inh inhalation QID 08/29/24 08/29/24 History breath activated powder inhaler (ProAir RespiClick) amantadine HCl 100 mg tablet 100 mg PO BID 08/29/24 08/29/24 History carbidopa ER 50 mg-levodopa 200 mg 1 tab PO TID 08/29/24 08/29/24 History tablet,extended release clonazepam 1 mg tablet 1 mg PO DAILY PRN Anxiety 08/29/24 08/29/24 History clonidine HCl 0.1 mg tablet 0.2 mg PO HS 08/29/24 08/29/24 History doxepin 10 mg capsule 10 mg PO HS 08/29/24 08/29/24 History famotidine 40 mg tablet 40 mg PO DAILY 08/29/24 08/29/24 History gabapentin 300 mg capsule 300 mg PO BID 08/29/24 08/29/24 History lamotrigine 150 mg tablet 150 mg PO BID 08/29/24 08/29/24 History lithium carbonate 300 mg capsule 300 mg PO QAM 08/29/24 08/29/24 History montelukast 10 mg tablet 10 mg PO DAILY 08/29/24 08/29/24 History Patient History Medical History Stomach problems GI EVAL/TESTING DR MONDRAGON - RECENT TESTING PER PT: COLONOSCOPY/ENDOSCOPY/UPPER GI TO DUODENUM NO SIGNIFICANT FINDINGS PER PT [employer] APPOINTMENT Sleep apnea BORDERLINE, NO DEVICE WAS RECOMMENDED Iron deficiency anemia 3 IV IRON INFUSIONS - MOST RECENT LAST WEEK Thrush, oral APPROX 3 X OVER THE PAST 6 MON & CURRENT Restless leg syndrome GERD (gastroesophageal reflux disease) UTI symptoms states has occ symptoms - DENIES CURRENT SYMPTOMS Levoscoliosis 25 degree lumbar L1-4 Lumbar facet joint syndrome Lumbar spondylosis Incisional hernia of anterior abdominal wall without obstruction or gangrene ? Allergic rhinitis due to pollen History of anesthesia reaction difficulty waking up with gastric bypass sx Osteoarthritis Sciatic leg pain left Chronic back pain Chronic kidney disease, stage 3 Prediabetes PT NOT SURE Depression Anxiety Tardive dyskinesia HX Asthma inhaler prn- well controlled - LAST USE PRN INHALER 4-5 DAYS AGO D/T WEATHER Surgical History S/P parathyroidectomy S/P hernia repair S/P cataract extraction left History of endoscopy History of colonoscopy History of section History of dilatation and curettage History of endometrial ablation History of bilateral tubal ligation History of carpal tunnel surgery of right wrist History of carpal tunnel surgery of left wrist x2 History of cholecystectomy History of gastric bypass History of tonsillectomy Family History Brother Family history of diabetes mellitus Diabetes Hypertension Father Family history of diabetes mellitus Diabetes Heart disease Hypertension Bipolar 1 disorder Aunt Family history of diabetes mellitus Grandfather (Paternal) Family history of diabetes mellitus Grandmother (Paternal) Family history of diabetes mellitus Cancer Abdominal aneurysm Mother Asthma Heart disease Hypertension Environmental allergies Grandmother (Maternal) Ovarian cancer Grandfather (Maternal) Lung cancer Other No family history of adverse response to anesthesia No family history of bleeding disorder Denies family history of Prostate cancer Myocardial infarction Breast cancer Colorectal cancer Social History Smoking Status: Former smoker Tobacco Type: Declines Age Started Using Tobacco: 17; Age Quit Using Tobacco: 34; packs per day: 0.25; Cigarettes Per Day: HX SMOKED FOR A SHORT TIME; Second Hand Exposure: No; Do You Dip or Chew Tobacco: No; Hx Alcohol Use: No Hx Substance Use: No Preferred Language: Ukrainian Communication Ability: Impaired Visual Impairment: Diminished Hearing Ability: Normal Shear Scrapman Required: No Beliefs That Will Affect Care: None marital status: Single Current Living Situation: Alone Current Living Situation Comment: 2 [address] current occupational status: employed 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 How many Children do You have: 1 Feels Safe at Home: Yes Childhood Exposure to Second-Hand Smoke: Yes Diet: regular Diet Comment: regular caffeine: Yes during the past year weight has: decreased > 10 lbs Dental Care, Regularly: Yes Physical Activity Frequency: 3-4 Times per Week Physical Activity Frequency Comment: PT at home and fit for play Seatbelt Use: always Sunscreen Use: Yes Assistive Devices: None Review of Systems Review of Systems: All systems reviewed & are unremarkable except as noted in HPI & below and Unobtainable due to cognitive status (limited due to confusion) Physical Exam Constitutional: well developed; no acute distress Eyes: + anicteric sclerae; no corneal abnormal ity ENMT: Mouth: + dry oral mucous membranes; no oral mucosal abnormality Neck: normal visual inspection and trachea midline Respiratory: normal respiratory effort Auscultation: lungs clear to auscultation bilaterally Cardiovascular: Rate/Rhythm: regular rate Heart Sounds: normal S1 and normal S2 Extremities: no edema Musculoskeletal: Extremities: no cyanosis and no clubbing Skin: + turgor decreased; no jaundice Neurologic: Motor/Sensory: no asterixis Psychiatric: Orientation: alert and cooperative; + not oriented to place and + not oriented to time Results & Data Vital Signs (Past 12 Hours) Vital Signs Temp Pulse Resp BP Pulse Ox 08/31/24 09:00 85 16 95 08/31/24 08:34 149/79 H 08/31/24 08:18 84 18 96 08/31/24 07:35 119/67 08/31/24 07:30 71 22 92 08/31/24 07:16 79 08/31/24 07:15 36.7 C 08/31/24 04:34 119/89 08/31/24 04:03 64 21 95 08/31/24 04:00 66 18 96 08/31/24 03:34 121/73 08/31/24 03:30 69 17 97 08/31/24 03:06 75 26 H 92 08/31/24 02:35 133/90 08/31/24 02:33 88 18 97 08/31/24 02:00 89 22 98 08/31/24 01:34 117/76 08/31/24 01:15 76 21 97 08/31/24 01:06 81 21 97 08/31/24 00:34 143/74 H 08/31/24 00:34 143/74 H 08/31/24 00:30 92 H 15 98 08/31/24 00:06 93 H 19 99 08/30/24 23:34 137/72 08/30/24 23:34 137/72 08/30/24 23:33 80 22 94 08/30/24 23:12 74 24 95 08/30/24 22:34 148/82 H 08/30/24 22:27 91 H 23 99 08/30/24 22:00 83 22 95 08/30/24 21:55 138/82 08/30/24 21:55 138/82 08/30/24 21:51 90 18 99 Laboratory Results Laboratory Results - last 24 hr 08/30/24 08/30/24 08/30/24 04:27 11:50 15:05 WBC RBC Hgb Hct MCV MCH MCHC RDW Std Deviation RDW Coeff of Juan Diego Plt Count MPV Immature Gran % (Auto) Neut % (Auto) Lymph % (Auto) Mower % (Auto) Eos % (Auto) Baso % (Auto) Neut # (Auto) Lymph # (Auto) Mower # (Auto) Eos # (Auto) Baso # (Auto) Immature Gran # (Auto) Sodium Potassium Chloride Carbon Dioxide Anion Gap BUN Creatinine Est Cr Clr Drug Dosing eGFR BUN/Creatinine Ratio Glucose POC Glucose 139 H Calcium Phosphorus 3.9 Magnesium Urine Osmolality 205 L 08/30/24 08/30/24 08/30/24 16:58 17:30 18:20 WBC RBC Hgb Hct MCV MCH MCHC RDW Std Deviation RDW Coeff of Juan Diego Plt Count MPV Immature Gran % (Auto) Neut % (Auto) Lymph % (Auto) Mower % (Auto) Eos % (Auto) Baso % (Auto) Neut # (Auto) Lymph # (Auto) Mower # (Auto) Eos # (Auto) Baso # (Auto) Immature Gran # (Auto) Sodium 156 H* D 154 H Potassium 3.4 L 3.3 L Chloride 127 H 128 H Carbon Dioxide 20 L 20 L Anion Gap 9 6 BUN 21 21 Creatinine 1.12 1.16 Est Cr Clr Drug Dosing 57.7 55.7 eGFR 56.29 53.97 BUN/Creatinine Ratio 18.8 18.1 Glucose 139 H 136 H POC Glucose 123 H Calcium 9.9 9.0 Phosphorus Magnesium Urine Osmolality 08/30/24 08/30/24 08/31/24 21:30 22:18 01:54 WBC RBC Hgb Hct MCV MCH MCHC RDW Std Deviation RDW Coeff of Juan Diego Plt Count MPV Immature Gran % (Auto) Neut % (Auto) Lymph % (Auto) Mower % (Auto) Eos % (Auto) Baso % (Auto) Neut # (Auto) Lymph # (Auto) Mower # (Auto) Eos # (Auto) Baso # (Auto) Immature Gran # (Auto) Sodium 153 H 150 H Potassium 3.5 3.5 Chloride 127 H 124 H Carbon Dioxide 20 L 22 Anion Gap 6 4 BUN 20 19 Creatinine 1.13 1.16 Est Cr Clr Drug Dosing 57.2 55.7 eGFR 55.70 53.97 BUN/Creatinine Ratio 17.7 16.4 Glucose 149 H 163 H POC Glucose Calcium 9.1 8.7 Phosphorus Magnesium 2.4 Urine Osmolality 217 L 08/31/24 08/31/24 08/31/24 01:58 06:17 Unknown WBC 17.16 H RBC 4.94 Hgb 14.1 Hct 44.3 MCV 89.7 MCH 28.5 MCHC 31.8 L RDW Std Deviation 41.5 RDW Coeff of Juan Diego 12.7 Plt Count 257 MPV 12.6 H Immature Gran % (Auto) 0.3 Neut % (Auto) 87.8 Lymph % (Auto) 4.0 Mower % (Auto) 7.6 Eos % (Auto) 0.1 Baso % (Auto) 0.2 Neut # (Auto) 15.07 H Lymph # (Auto) 0.69 L Mower # (Auto) 1.30 H Eos # (Auto) 0.01 Baso # (Auto) 0.04 Immature Gran # (Auto) 0.05 Sodium 152 H Potassium 4.3 D Chloride 124 H Carbon Dioxide 23 Anion Gap 5 BUN 18 Creatinine 1.11 Est Cr Clr Drug Dosing 58.2 eGFR 56.90 BUN/Creatinine Ratio 16.2 Glucose 131 H POC Glucose Calcium 9.5 Phosphorus Magnesium Urine Osmolality 191 L PG Care Time/CCT Total # of Minutes Spent Total Time Spent with Patient: Total time spent is greater than 50% in coordination of care (as documented) at patient's floor/unit and/or counseling patient: Coding Level of Care Code 03475 IN/OBS CONSULT LVL 4,60M Diagnoses Hypernatremia E87.0 Nephrogenic diabetes insipidus N25.1 [place] adverse reaction T43.595A Encephalopathy G93.40 Bipolar 1 disorder F31.9
--- NOTE | 2024-08-31 10:54 | Radiology Progress Note ---
Date of Service August 31, 2024 Radiology Progress Note Request for LP to w/u sunny. Tried to obtain consent over the phone from bother and son, but was unsuccessful. Spoke to Dr Holliday to see if LP needed to be deemed medically urgent, but he state to hold off on LP for now. He will reevaluate and will let us know if LP is needed. Results & Data Vital Signs (Past 12 Hours) Vital Signs Temp Pulse Resp BP Pulse Ox O2 Del Method 08/31/24 09:00 85 16 95 08/31/24 08:34 149/79 H 08/31/24 08:30 Room Air 08/31/24 08:18 84 18 96 08/31/24 07:35 119/67 08/31/24 07:30 71 22 92 08/31/24 07:16 79 08/31/24 07:15 36.7 C 08/31/24 04:34 119/89 08/31/24 04:03 64 21 95 08/31/24 04:00 66 18 96 08/31/24 03:34 121/73 08/31/24 03:30 69 17 97 08/31/24 03:06 75 26 H 92 08/31/24 02:35 133/90 08/31/24 02:33 88 18 97 08/31/24 02:00 89 22 98 08/31/24 01:34 117/76 08/31/24 01:15 76 21 97 08/31/24 01:06 81 21 97 08/31/24 00:34 143/74 H 08/31/24 00:34 143/74 H 08/31/24 00:30 92 H 15 98 08/31/24 00:06 93 H 19 99 08/30/24 23:34 137/72 08/30/24 23:34 137/72 08/30/24 23:33 80 22 94 08/30/24 23:12 74 24 95
[2024-08-31 12:17] LABS: Calcium 9.6 mg/dl (8.6-10.3); Creatinine Clr Calc Pharmacy 65.4 ml/min; Potassium 3.8 mmol/L (3.5-5.1)
--- NOTE | 2024-08-31 13:37 | Cardiology Progress Note ---
Date of Service August 31, 2024 Assessment & Plan (1) SVT (supraventricular tachycardia): (2) AMS (altered mental status): (3) Bipolar 1 disorder: Plan Fortunately, no further SVT recurrence after several doses of metoprolol tartrate. When taking oral medications, would initiate low-dose metoprolol succinate at 25 mg daily and maintain this for short while after discharge. Obtain MCOT monitor upon discharge, if no recurrent SVT after 2 weeks could discontinue metoprolol and monitor for another 2 weeks. Although atrial flutter cannot be definitively excluded, appears to be more conventional SVT, as such no role for anticoagulation. Will continue to follow along. Admission and Anticipated Discharge Date Admission Date: August 29, 2024 Subjective Much more interactive today, answers simple questions appropriately. Denies chest pain, dyspnea, or other somatic complaints. Telemetry showed sinus rhythm at 80-90 bpm, no further SVT recurrence. Physical Exam Physical Exam: No distress. BP normotensive. Pulse 82 bpm and regular. Respirations 20 and unlabored. Skin: no ecchymoses or generalized lesions. HEENT: unremarkable. Neck: JVP at the clavicle at 90 degrees, no carotid bruits. Lungs: clear bilaterally. Cardiac: regular rhythm, normal S1-2, no murmur. Abdomen: benign. Extremities: no edema, pulses intact. Neurologic: Awake and interactive, grossly nonfocal. Results & Data Laboratory Results WBC 17.16, normal hemoglobin and platelet count. Sodium 149, potassium 3.8, BUN 16, creatinine 1.0. PG Care Time/CCT Total # of Minutes Spent Total Time Spent with Patient: Total time spent is greater than 50% in coordination of care (as documented) at patient's floor/unit and/or counseling patient: Coding Level of Care Code 06026 SUB INP/OBS CARE 08/22MIN Diagnoses SVT (supraventricular tachycardia) I47.10 AMS (altered mental status) R41.82 Bipolar 1 disorder F31.9
--- NOTE | 2024-08-31 14:56 | Hospitalist Progress Note ---
Date of Service August 31, 2024 Assessment & Plan (1) SAMEER (acute kidney injury): (2) Encephalopathy: (3) UTI (urinary tract infection): (4) SVT (supraventricular tachycardia): (5) Many adverse reaction: (6) Nephrogenic diabetes insipidus: Plan This patient is a 59-year-old female with a history of bipolar disorder, peripheral neuropathy, RLS, mild cognitive impairment, tremor, CKD stage III, hypothyroidism, hyperparathyroidism, Raynaud's, and GERD, who presents with altered mental status, paroxysmal SVT, SAMEER, anion gap metabolic acidosis, who then quickly developed hypernatremia likely secondary to lithium induced diabetes insipidus. She was admitted to the ICU because of numerous episodes of SVT with borderline hypotension requiring esmolol drip. She was also noted to have a UTI. #Acute encephalopathy-suspect toxic encephalopathy secondary to lithium and other psychiatric medications -perhaps due to recent increase in Zepbound dosing causing slowed GI transit and increased absorption? CT head negative. Many level within normal limits but can still have acute on chronic lithium toxicity especially given ongoing diabetes insipidus. Tox screen positive for marijuana. No fever, does have a UTI but this would not cause this severe encephalopathy. pH on VBG normal so not hypercapnic. Hypernatremia is also contributing. With leukocytosis but no fever, bio fire respiratory panel negative, acute kidney injury is resolved, blood cultures remain no growth to date. She was recently tapering down off her Topamax as it was causing worsening cognition. She is unclear if she may have also accidentally overdosed on some of her other medications. She is definitely improving with being more interactive and able to speak and have simple conversation on 08/31, but remains confused at times -She does take clonazepam every night-to avoid withdrawal, will resume clonazepam 1 mg p.o. at bedtime -Continue to hold home lithium, Lamictal, carbidopa/levodopa, doxepin, gabapentin, topiramate, sertraline, amantadine, clonidine at this time-slowly resume psychiatric medications but would not resume lithium -Following BMP and giving D5W for severe hypernatremia and diabetes insipidus -Continue supportive care -Treating UTI -Advised against marijuana use in the setting of multiple psychiatric medications -No need for LP at this point as she is improving # SAMEER on CKD stage III/anion gap metabolic acidosis/diabetes insipidus-SAMEER was prerenal secondary to poor p.o. intake with encephalopathy and also recently had her dose of Zepbound increased. This resolved with hydration. Metabolic acidosis may have been related to SAMEER but she is also on topiramate which can cause metabolic acidosis. This is also now resolved. The hypernatremia diya to peak sodium 156 and may be from lithium use and toxicity of lithium. She had 9 L of urine output in the first 24 hours of hospitalization. Sodium is now improving with replacing free water with D5W and she received a dose of desmopressin on 08/30. Appreciate nephrology consultation -Hold Zepbound -Continue D5W at 200 mL/h and follow I's and O's carefully -Follow BMP serially -Advance diet to clear liquids and further from there as tolerated #UTI/leukocytosis-UA has bacteria but no WBCs but is also positive for nitrite. Interestingly, urine culture is growing Streptococcus mitis and Gardnerella- these are possibly contaminants, but would also not give a positive nitrate. Blood cultures remain no growth to date. WBC count remains elevated but may be related to stress. She is afebrile. No abdominal pain or flank pain. -Continue IV Rocephin for now -Continue to follow blood cultures as Streptococcus mitis can be a causative organism of endocarditis -Follow CBC in the morning #Recurrent SVT/demand ischemia/elevated troponin-she had numerous paroxysms of SVT in first 24 hours of hospitalization requiring esmolol drip in the ICU. She was with soft blood pressures but not hypotensive. TSH is low but free T4 is normal-unlikely to be thyroid storm. Cardiology involved. Echocardiogram was normal. Troponin was only minimally elevated at -Continue to give IV Lopressor as needed -Continue to keep electrolytes replete -Continue telemetry monitoring #bipolar disorder -on multiple medications at home to include Lamictal, lithium, sertraline, doxepin, clonazepam, amantadine, and clonidine. With possible acute on chronic lithium toxicity with diabetes insipidus and encephalopathy as above. -Continue holding all medications from home and would not recommend restarting lithium -Consult psychiatry for further recommendations on future medication management -Asked psychiatry to help facilitate obtaining records from outside psychiatry provider-NEELA Gomez at [facility] [place] #Obesity-BMI 32.2-currently on Zepbound and had dose increased recently-may have contributed to variable absorption of psychiatric medications leading to toxic encephalopathy -Hold Zepbound -Tapering down off Topamax which may also be used for weight loss #Peripheral neuropathy/RLS/tremor/cognitive impairment-follows with [facility] neurology. History of poor memory per neurology's note from August 06, 2024. They do suspect a mild neurocognitive disorder in conjunction with bipolar disorder and major anxiety disorder and depression. She is also on gabapentin, Topamax, clonazepam, and Sinemet -All home medications are on hold -Resume clonazepam on 2/3 1 Mg p.o. at bedtime to avoid withdrawal #Hypothyroidism/hyperparathyroidism-TSH mildly low but free T4 normal. Most recent intact PTH is significantly elevated at 164 but calcium remains normal. Follows with endocrinology and is status post parathyroidectomy. Current hyperparathyroidism is thought to be secondary to renal disease. -Continue levothyroxine but changed from IV to p.o. now that she is taking p.o. DVT prophylaxis-resume SQ Lovenox as no LP to be performed, SCDs Disposition-continued stay but downgrade from ICU to PCU Admission and Anticipated Discharge Date Admission Date: August 29, 2024 Subjective Patient more awake and talking today but remains somewhat confused. She feels extremely thirsty. Her boyfriend at the bedside said that she is slowly worsened through the week with her mentation when he was talking to her over the phone. She also started on Zepbound and recently had the dose increased. Her Na+ went up to 156 overnight and she was placed on high volumes of D5W and given Desmopressin Tele with NSR, no SVT since 08/30/24. I discussed her care with the Plant Operations Engineer. Physical Exam Constitutional: WD/WN, vitals as above Eyes: PERRL, conjunctivae normal, anicteric sclerae ENMT: dry mucus membranes and lips Respiratory: normal respiratory effort, lungs clear to auscultation Cardiovascular: RRR, no murmur, no edema Gastrointestinal (Abdomen): normal bowel sounds, soft, nontender, no hepatosplenomegaly Neurologic: moves all extremities, awake and + confused (mild); no focal motor deficits Motor/Sensory: + tremor (occasional fine action tremor in hands) Psychiatric: Orientation: alert, oriented to person, oriented to place and cooperative Results & Data Results & Data Vital Signs (Past 12 Hours) Vital Signs Temp Pulse Resp BP Pulse Ox O2 Del Method 08/31/24 12:06 83 20 94 08/31/24 11:56 120/84 08/31/24 11:52 135/78 08/31/24 11:39 85 13 97 08/31/24 11:25 36.9 C 08/31/24 09:34 152/89 H 08/31/24 09:30 88 17 96 08/31/24 09:00 85 16 95 08/31/24 08:34 149/79 H 08/31/24 08:30 Room Air 08/31/24 08:18 84 18 96 08/31/24 07:35 119/67 08/31/24 07:30 71 22 92 08/31/24 07:16 79 08/31/24 07:15 36.7 C 08/31/24 04:34 119/89 08/31/24 04:03 64 21 95 08/31/24 04:00 66 18 96 08/31/24 03:34 121/73 08/31/24 03:30 69 17 97 08/31/24 03:06 75 26 H 92 Laboratory Results CBC, BMP x 4, urine cx, blood cxs reviewed PG Care Time/CCT Total # of Minutes Spent Total Time Spent with Patient: Total time spent is greater than 50% in coordination of care (as documented) at patient's floor/unit and/or counseling patient: Coding Level of Care Code 36589 SUB INP/OBS CARE 3/50MIN Diagnoses SAMEER (acute kidney injury) N17.9 Encephalopathy G93.40 UTI (urinary tract infection) N39.0 SVT (supraventricular tachycardia) I47.10 Many adverse reaction T43.595A Nephrogenic diabetes insipidus N25.1
--- NOTE | 2024-08-31 15:36 | Critical Care Progress Note ---
Date of Service August 31, 2024 Assessment & Plan (1) Encephalopathy: (2) SVT (supraventricular tachycardia): (3) UTI (urinary tract infection): (4) Sepsis: (5) Restless leg syndrome: (6) Hypothyroidism: (7) Respiratory alkalosis: (8) SAMEER (acute kidney injury): (9) Hypernatremia: Plan Metabolic encephalopathy appears to be improving and likely multifactorial related to hypernatremia, polypharmacy and acute UTI. Continue correct sodium with free water. Continue antibiotics with Rocephin. Continue treating hypothyroidism with levothyroxine. Continue metoprolol as needed for SVT on admission. Patient in sinus rhythm. Appreciate cardiology input. Holding home psychiatric medications for the time being given altered mental status which appears to be slowly clearing. Consider psychiatry consult and reinitiation of psychiatric medications once deemed medically appropriate. Recheck sodium now. Discussed with hospitalist service. Agree with downgrade out of ICU at this time. Also discussed on multidisciplinary rounds. Admission and Anticipated Discharge Date Admission Date: August 29, 2024 Subjective Per nursing staff, encephalopathy is clearing. She still remains very confused and repeats herself frequently. Able to follow minimal commands such as squeezing my fingers on command. Vital signs remained stable and she is not requiring supplemental oxygen. LP was not obtained as family was not able to be contacted per IR. Review of Systems Review of Systems: All systems reviewed & are unremarkable except as noted in HPI & below Physical Exam Physical Exam: Constitutional: Patient appears to be of their stated age. Patient is in no apparent distress. Patient is well-developed. Obese. Eyes: Pupils are equal round and reactive to light. Conjunctivae are normal. Anicteric sclera. Ears nose, mouth and throat: No perioral cyanosis. Neck: Trachea is midline. Visual inspection is normal. Respiratory: Clear to auscultation bilaterally. No use of accessory muscles. No significant clubbing noted. Cardiovascular: Regular rate and rhythm. No murmurs. No edema. Gastrointestinal: Normal bowel sounds, soft, nontender and nondistended. No hepatosplenomegaly noted. Musculoskeletal: No cyanosis. Patient is able to move all extremities. Strength is 5 out of 5 in the upper and lower extremities. Skin: No rashes, warm dry and intact. Neurologic: No obvious focal neurological deficits seen. Psychiatric: Alert and oriented x 1. Results & Data Results & Data Vital Signs (Past 12 Hours) Vital Signs Temp Pulse Resp BP Pulse Ox O2 Del Method 08/31/24 12:06 83 20 94 08/31/24 11:56 120/84 08/31/24 11:52 135/78 08/31/24 11:39 85 13 97 08/31/24 11:25 36.9 C 08/31/24 09:34 152/89 H 08/31/24 09:30 88 17 96 08/31/24 09:00 85 16 95 08/31/24 08:34 149/79 H 08/31/24 08:30 Room Air 08/31/24 08:18 84 18 96 08/31/24 07:35 119/67 08/31/24 07:30 71 22 92 08/31/24 07:16 79 08/31/24 07:15 36.7 C 08/31/24 04:34 119/89 08/31/24 04:03 64 21 95 08/31/24 04:00 66 18 96 08/31/24 03:34 121/73 08/31/24 03:30 69 17 97 Coding Level of Care Code 92787 SUB INP/OBS CARE 08/22MIN Diagnoses Encephalopathy G93.40 SVT (supraventricular tachycardia) I47.10 UTI (urinary tract infection) N39.0 Sepsis A41.9 Restless leg syndrome G25.81 Acquired hypothyroidism E03.9 Hypothyroidism type: acquired Respiratory alkalosis E87.3 SAMEER (acute kidney injury) N17.9 Hypernatremia E87.0 (6) Hypothyroidism Hypothyroidism type: acquired Qualified Code(s): E03.9 - Hypothyroidism, unspecified
[2024-08-31 16:43] LABS: Calcium 9.2 mg/dl (8.6-10.3); Potassium 3.8 mmol/L (3.5-5.1)
[2024-08-31 16:48] LABS: BUN Creatinine Ratio 12.9 (10-20); Creatinine Clr Calc Pharmacy 56.4 ml/min
[2024-08-31] MEDS: ACETAMINOPHEN 325 MG TAB PO PRN (16:57)
[2024-08-31] MEDS: LEVOTHYROXINE SODIUM 112 MCG TABLET PO SCH (16:57)
--- NOTE | 2024-08-31 17:26 | Electrocardiogram Report ---
Test Reason : Blood Pressure : */* mmHG Vent. Rate : 161 BPM Atrial Rate : * BPM P-R Int : * ms QRS Dur : 88 ms QT Int : 288 ms P-R-T Axes : * 23 209 degrees QTcB Int : 471 ms Poor data quality, interpretation may be adversely affected Supraventricular tachycardia Possible Old Anterior infarct (cited on or before 14-Jun-2013) Abnormal ECG When compared with ECG of 29-Aug-2024 19:13, Supraventricular tachycardia now present Vent. rate has increased by 60 bpm Confirmed by Jose Luis Rey ([id number]) on 08/31/2024 5:25:55 PM Referred By: REFERRED SELF Confirmed By: Jose Luis Rey
[2024-08-31] MEDS: ALBUTEROL HFA 8 GM INHALER INH SCH (18:01)
[2024-08-31] MEDS: PANTOprazole 40 MG TAB PO SCH (22:34)
[2024-08-31] MEDS: clonazePAM 1 MG TAB PO SCH (22:34)
[2024-09-01 05:25] LABS: Basophils # (auto) 0.05 K/uL (0.00-0.20); Basophils % (auto) 0.5 %; Eosinophils % (auto) 1.8 %; Hematocrit (blood only) 46.2 % (37.0-47.0); Hemoglobin 14.8 g/dl (12.0-16.0); Immature Granulocytes # (auto) 0.04 K/uL (0.01-0.20); Immature Granulocytes % (auto) 0.4 %; Lymphocytes # (auto) 1.13 K/uL (1.20-3.40); Lymphocytes % (auto) 10.4 %; Mean Corpuscular Hemoglobin 28.7 pg (25.0-34.0); Mean Corpuscular Volume 89.5 fL (80.0-100.0); Mean Platelet Volume 11.3 fL (9.4-12.4); Monocytes # (auto) 0.54 K/uL (0.11-0.59); Monocytes % (auto) 4.9 %; Neutrophils # (auto) 8.95 K/uL (1.40-6.50); Platelet Count 172 K/uL (130-400); RDW Coefficient of Variation 12.2 % (11.5-14.5); RDW Standard Deviation 40.3 fL (36.4-46.3); Red Blood Count 5.16 M/uL (4.20-5.40); White Blood Count 10.91 K/ul (4.8-10.8)
[2024-09-01 05:39] LABS: Albumin Globulin Ratio 1.4 (0.9-2); Albumin Level 3.7 gm/dl (3.4-5.0); Bilirubin,Total 0.5 mg/dl (0.2-1.0); Calcium 9.2 mg/dl (8.6-10.3); Creatinine Clr Calc Pharmacy 55.6 ml/min; Globulin 2.6 gm/dl (2.5-4.0); Potassium 3.4 mmol/L (3.5-5.1); Total Protein 6.3 gm/dl (6.0-8.3)
--- NOTE | 2024-09-01 08:39 | Cardiology Progress Note ---
Date of Service September 01, 2024 Assessment & Plan (1) SVT (supraventricular tachycardia): (2) Hypokalemia: (3) Bipolar 1 disorder: Plan Given recurrence of PSVT, would recommend either metoprolol succinate 25 mg p.o. daily or metoprolol tartrate 5 mg IV every 12 hours (if not taking pills) to suppress further recurrence. Agree with potassium repletion. As noted, would discharge on low-dose beta-padmini and obtain [facility]OT as o utpatient. Admission and Anticipated Discharge Date Admission Date: August 29, 2024 Subjective Several episodes of brief recurrent PSVT at rates of up to 184 bpm noted overnight, none this morning. Physical Exam 2 Physical Exam: No distress. BP normotensive. Pulse 64 bpm and regular. Respirations 18 and unlabored. Skin: no ecchymoses or generalized lesions. HEENT: unremarkable. Neck: JVP at the clavicle at 90 degrees, no carotid bruits. Lungs: clear bilaterally. Cardiac: regular rhythm, normal S1-2, no murmur. Abdomen: benign. Extremities: no edema, pulses intact. Neurologic: Asleep, grossly nonfocal. Results & Data Laboratory Results WBC 10.91, normal hemoglobin and platelet count. Potassium 3.4, BUN 14, creatinine 1.17. Magnesium 2.0. PG Care Time/CCT Total # of Minutes Spent Total Time Spent with Patient: Total time spent is greater than 50% in coordination of care (as documented) at patient's floor/unit and/or counseling patient: Coding Level of Care Code 97779 SUB INP/OBS CARE 2/35MIN Diagnoses SVT (supraventricular tachycardia) I47.10 Hypokalemia E87.6 Bipolar 1 disorder F31.9
[2024-09-01] MEDS ORDERED: ALBUTEROL HFA 8 GM INHALER INH PRN (09:50)
--- NOTE | 2024-09-01 10:09 | Nephrology Progress Note ---
Date of Service September 01, 2024 Assessment & Plan (1) Hypernatremia: Plan: Serum sodium normalized. Ana remains polyuric. Urine is dilute. IVF held. I have requested a repeat serum sodium for this afternoon. (2) Nephrogenic diabetes insipidus: Plan: Attributed to [place] use. Unclear if this is acute or chronic. No response to DDAVP. Amiloride and thiazide diuretics have been held for now. Monitor sodium closely. Encourage oral fluids when able. (3) [place] adverse reaction: Plan: History of hyperparathyroidism, long QTc, and nephrogenic DI. Ultimately, I suspect these findings all reflect lithium toxicity and I would suggest that alternative therapy be considered moving forward. (4) Bipolar 1 disorder: Admission and Anticipated Discharge Date Admission Date: August 29, 2024 Subjective Ana was resting comfortably in bed this morning. She is very withdrawn. She is not talking much. The RN reports that she was struggling with pills or taking fluids by mouth this morning. She remains slightly polyuric. Urine is dilute. ~2.5 L documented overnight. She did tell me that she feels thirsty this AM. IVF were stopped overnight. Review of Systems Review of Systems: All systems reviewed & are unremarkable except as noted in HPI & below Physical Exam Constitutional: well developed; no acute distress Eyes: + anicteric sclerae; no corneal abnormal ity ENMT: Mouth: + dry oral mucous membranes; no oral mucosal abnormality Neck: normal visual inspection and trachea midline Respiratory: normal respiratory effort Auscultation: lungs clear to auscultation bilaterally Cardiovascular: Rate/Rhythm: regular rate Heart Sounds: normal S1 and normal S2 Extremities: no edema Musculoskeletal: Extremities: no cyanosis and no clubbing Skin: + turgor decreased; no jaundice Neurologic: Motor/Sensory: no asterixis Psychiatric: Orientation: alert and cooperative; + not oriented to place and + not oriented to time Results & Data Vital Signs (Past 12 Hours) Vital Signs Temp Pulse Pulse Resp BP BP Pulse Ox 09/01/24 07:36 36.6 C 64 18 132/85 95 09/01/24 07:23 58 L 20 96 09/01/24 07:18 62 09/01/24 00:56 116/77 09/01/24 00:50 64 16 100 09/01/24 00:03 65 16 99 08/31/24 23:03 70 16 99 08/31/24 22:56 143/87 H 08/31/24 22:54 69 15 100 08/31/24 22:27 68 17 98 O2 Del Method 09/01/24 07:36 Room Air 09/01/24 07:23 Room Air 09/01/24 07:18 09/01/24 00:56 09/01/24 00:50 09/01/24 00:03 08/31/24 23:03 08/31/24 22:56 08/31/24 22:54 08/31/24 22:27 Laboratory Results Laboratory Results - last 24 hr 08/31/24 08/31/24 08/31/24 11:45 12:11 15:35 WBC RBC Hgb Hct MCV MCH MCHC RDW Std Deviation RDW Coeff of Juan Diego Plt Count MPV Immature Gran % (Auto) Neut % (Auto) Lymph % (Auto) Sharp % (Auto) Eos % (Auto) Baso % (Auto) Neut # (Auto) Lymph # (Auto) Sharp # (Auto) Eos # (Auto) Baso # (Auto) Immature Gran # (Auto) Sodium 149 H 148 H Potassium 3.8 3.8 Chloride 123 H 123 H Carbon Dioxide 21 21 Anion Gap 5 4 BUN 16 15 Creatinine 1.00 1.16 Est Cr Clr Drug Dosing 65.4 56.4 eGFR 64.49 53.97 BUN/Creatinine Ratio 16.0 12.9 Glucose 133 H 126 H POC Glucose 121 H Calcium 9.6 9.2 Magnesium Total Bilirubin AST ALT Alkaline Phosphatase Total Protein Albumin Globulin Albumin/Globulin Ratio Free T4 Free T3 09/01/24 09/01/24 05:10 06:15 WBC 10.91 H RBC 5.16 Hgb 14.8 Hct 46.2 MCV 89.5 MCH 28.7 MCHC 32.0 RDW Std Deviation 40.3 RDW Coeff of [place] Diego 12.2 Plt Count 172 MPV 11.3 Immature Gran % (Auto) 0.4 Neut % (Auto) 82.0 Lymph % (Auto) 10.4 Sharp % (Auto) 4.9 Eos % (Auto) 1.8 Baso % (Auto) 0.5 Neut # (Auto) 8.95 H Lymph # (Auto) 1.13 L Sharp # (Auto) 0.54 Eos # (Auto) 0.20 Baso # (Auto) 0.05 Immature Gran # (Auto) 0.04 Sodium 144 Potassium 3.4 L Chloride 115 H Carbon Dioxide 26 Anion Gap 3 BUN 14 Creatinine 1.17 Est Cr Clr Drug Dosing 55.6 eGFR 53.42 BUN/Creatinine Ratio 12.0 Glucose 107 H POC Glucose Calcium 9.2 Magnesium 2.0 Total Bilirubin 0.5 AST 19 ALT 13 Alkaline Phosphatase 127 H Total Protein 6.3 Albumin 3.7 Globulin 2.6 Albumin/Globulin Ratio 1.4 Free T4 Pending Free T3 Pending PG Care Time/CCT Total # of Minutes Spent Total Time Spent with Patient: Total time spent is greater than 50% in coordination of care (as documented) at patient's floor/unit and/or counseling patient: Coding Level of Care Code 76427 SUB INP/OBS CARE 3/50MIN Diagnoses Hypernatremia E87.0 Nephrogenic diabetes insipidus N25.1 [place] adverse reaction T43.595A Bipolar 1 disorder F31.9
--- NOTE | 2024-09-01 11:21 | Psychiatric Consultation ---
Date of Consultation September 01, 2024 Impression / Recommendations Impression Diagnostically consistent with encephalopathy likely fluctuating between hyperactive and hypoactive delirium. Suspect lack of engagement today due to hypoactive delirium presentation. No current evidence for catatonia given description of improvement yesterday. Difficult to determine if any current SI or psychosis given her inability to engage verbally. Agree that lithium induced diabetes insipidus seems to be most likely cause for delirium. Given her history of recent mild cognitive impairment it;s likely that delirium may take longer to resolve. She does a clear and convincing history of significant bipolar disorder which necessitates management with a mood stabilizer. Per review of past inpatient psychiatry admission in 2019 she reported lithium had been only mood stabilizer that worked well for her and she preferred to avoid antipsychotics for mood stabilization given history of tardive dyskinesia (possibly from Seroquel in the past). Appears she's had past trials of Depakote and has been on concurrent lamictal. 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 It's unclear how frequently she uses her outpatient Klonopin but given that she consistently fills outpatient monthly scripts per PDMP agree that Klonopin could be necessary to avoid benzo withdrawal further complicating her delirium. However, benzodiazepines can also worsen delirium and prolong it's course so would consider lower dose of Klonopin and potential to taper over next few days as tolerated until delirium improves. Overall, I spent a total of 60 minutes with this case including review of chart records, review of labwork, review of EKG QTc, direct evaluation of the patient at bedside, counseling the patient, discussion of the patient with the Nurse and with the hospitalist provider, discussion with the psychiatric liason during clinical rounds and documentation in the electronic health record. (1) Delirium: (2) [place] adverse reaction: (3) Nephrogenic diabetes insipidus: (4) Hypernatremia: (5) Bipolar 1 disorder: Plan -Once she is able to swallow pills/or tolerate crushed in food would emphasize restarting: * lamictal 150mg BID (if not restarted by 09/03/2024 then titration will have to restart at dose of lamictal 25mg HS daily) * Consider melatonin 3mg qhs * Klonopin 0.5mg HS with goal of tapering if encephalopathy persists -Once delirium improves can then restart psych meds including: * sertraline 50mg daily (only if lamictal remains at therapeutic dose of 150mg BID, if retitration required then continue to hold sertraline to prevent setting off dena) * clonidine 0.1mg HS * gabapentin 150mg BID -Would discontinue prior to admission * Doxepin * lithium * topiramate -Continue medical workup to rule out and treat any underlying causes contributing to potential delirium, avoid or limit use of deliriogenic medications (benzodiazepines, opioids, anticholinergics) -Continue with delirium prevention measures: raising blinds during the day, closing at night, frequent re-orientation, contact with family/friends, explaining procedures/nursing care measures prior to physical contact, correct any hearing and visual impairments -Psychiatry will continue to follow, please reach out if acute concerns arise for self-harm risk (SI), psychosis or dena Psych History Identifying Data Ana Trujillo is a 59 yo woman with a history of bipolar affective disorder (confirmed past episodes of dena per psych admission on [facility] in 2019), CKD, Prediabetes, Anxiety, Tardive Dyskinesia, OA, chronic back pain, scoliosis, anemia, Hypothyroidism, Hyperparathyroidism, Raynaud's, Restless leg, GERD and suspected mild neurocognitive impairment admitted for abrupt onset of confusion. Psychiatry consulted for recommendations for possible lithium toxicity and medication management for bipolar disorder/when to restart psychiatric medications. Chief Complaint "Mmhm". History of Present Illness Ana was admitted for fairly abrupt onset confusion with no known recent stressors or inciting events except recent initiation of Zepbound. On admission she was found to have cardiac changes, SAMEER, significant hypernatremia, elevated WBC, suspected UTI, no evidence for acute intracranial abnormalities on CT imaging, positive for cannabis and lithium level of 1.1 (close to trough level as done at ~7pm a few hours prior to HS dose). Lamictal level remains pending. She has been confused with initial hyperactive behaviors on Saturday, then very somnolent and largely non-verbal on Saturday, able to communicate more yesterday and spoke with her son and today back to largely non-verbal with intense stare/confusion per discussion with RN. Her psychiatric medications have been held with exception of Klonopin restarted last evening. Prior to admission reportedly taking psychiatric medications of: -Klonopin 1mg daily prn for anxiety -clonidine 0.1mg qAM and 0.2mg HS -doxepin 10mg HS -gabapentin 300mg BID (for RLS?) -lamictal 150mg BID -[place] 300mg qAM & 600mg qPM -sertraline 200mg qAM -topiramate (reportedly being tapered) Today she made intense eye contact, mumbled mhmm a few times but otherwise non- verbal. Unclear if she's oriented at all, did not respond to her name. Allergies Allergy/AdvReac Type Severity Reaction Status Date / Time budesonide Allergy Unknown Unknown Verified 08/06/24 13:02 cyclobenzaprine Allergy Unknown severe Verified 08/06/24 13:02 depression latex Allergy Unknown lehman; Verified 08/06/24 13:02 leaves a vani on skin NSAIDS (Non-Steroidal Allergy Unknown Gastrointestinal Verified 08/06/24 13:02 Anti-Inflamma Upset psyllium [From Metamucil] Allergy Unknown Wheezing Verified 08/06/24 13:02 quetiapine [From Seroquel] Allergy Unknown tardive Verified 08/06/24 13:02 dyskinesia strawberry Allergy Unknown Hives Verified 08/06/24 13:02 prednisone AdvReac Nightmare Verified 08/06/24 13:02 Home Medications Medication Instructions Recorded Confirmed Type sertraline 100 mg tablet (Zoloft) 200 mg PO QAM 02/18/20 08/29/24 History lithium carbonate 300 mg capsule 600 mg PO QPM 08/31/22 08/29/24 History Spacer for Inhaler #1 ea 07/09/23 08/29/24 Rx omeprazole 40 mg capsule,delayed 40 mg PO BID #180 caps 11/12/23 08/29/24 Rx release zoledronic acid 5 mg/100 mL in 1 ea IV UD 11/13/23 08/29/24 History mannitol 5 %-water intravenous piggybck (Reclast) carbidopa 25 mg-levodopa 100 mg 1 tab PO .COMPLEX PRN breakthrough 12/02/24 02/01/25 Rx tablet RLS sx 30 days #60 tabs levothyroxine 112 mcg tablet See Rx Instructions .Route 06/29/24 08/29/24 Rx .COMPLEX #108 tabs linaclotide 290 mcg capsule 290 mcg PO DAILY #90 caps 07/30/24 08/29/24 Rx (Linzess) clonidine HCl 0.1 mg tablet 0.1 mg PO QAM 08/06/24 08/29/24 History topiramate 25 mg tablet 25 mg PO QAM #30 tabs 08/19/24 08/29/24 Rx topiramate 50 mg tablet 50 mg PO QPM 08/19/24 08/29/24 History Zepbound 7.5 mg/0.5 mL 7.5 mg (0.5 mL) subcut Q7D #2 mL 08/26/24 08/29/24 Rx subcutaneous pen injector (tirzepatide (weight loss)) albuterol sulfate 90 mcg/actuation 1 inh inhalation QID 08/29/24 08/29/24 History breath activated powder inhaler (ProAir RespiClick) amantadine HCl 100 mg tablet 100 mg PO BID 08/29/24 08/29/24 History carbidopa ER 50 mg-levodopa 200 mg 1 tab PO TID 08/29/24 08/29/24 History tablet,extended release clonazepam 1 mg tablet 1 mg PO DAILY PRN Anxiety 08/29/24 08/29/24 History clonidine HCl 0.1 mg tablet 0.2 mg PO HS 08/29/24 08/29/24 History doxepin 10 mg capsule 10 mg PO HS 08/29/24 08/29/24 History famotidine 40 mg tablet 40 mg PO DAILY 08/29/24 08/29/24 History gabapentin 300 mg capsule 300 mg PO BID 08/29/24 08/29/24 History lamotrigine 150 mg tablet 150 mg PO BID 08/29/24 08/29/24 History lithium carbonate 300 mg capsule 300 mg PO QAM 08/29/24 08/29/24 History montelukast 10 mg tablet 10 mg PO DAILY 08/29/24 08/29/24 History Patient History Medical History Stomach problems GI EVAL/TESTING DR MONDRAGON - RECENT TESTING PER PT: COLONOSCOPY/ENDOSCOPY/UPPER GI TO DUODENUM NO SIGNIFICANT FINDINGS PER 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 Allergic rhinitis due to pollen History of anesthesia reaction difficulty waking up with gastric bypass sx Osteoarthritis Sciatic leg pain left Chronic back pain Chronic kidney disease, stage 3 Prediabetes PT NOT SURE Depression Anxiety Tardive dyskinesia HX Asthma inhaler prn- well controlled - LAST USE PRN INHALER 4-5 DAYS AGO D/T WEATHER Surgical History S/P parathyroidectomy S/P hernia repair S/P cataract extraction left History of endoscopy History of colonoscopy History of section History of dilatation and curettage History of endometrial ablation History of bilateral tubal ligation History of carpal tunnel surgery of right wrist History of carpal tunnel surgery of left wrist x2 History of cholecystectomy History of gastric bypass History of tonsillectomy Family History Brother Family history of diabetes mellitus Diabetes Hypertension Father Family history of diabetes mellitus Diabetes Heart disease Hypertension Bipolar 1 disorder Aunt Family history of diabetes mellitus Grandfather (Paternal) Family history of diabetes mellitus Grandmother (Paternal) Family history of diabetes mellitus Cancer Abdominal aneurysm Mother Asthma Heart disease Hypertension Environmental allergies Grandmother (Maternal) Ovarian cancer Grandfather (Maternal) Lung cancer Other No family history of adverse response to anesthesia No family history of bleeding disorder Denies family history of Prostate cancer Myocardial infarction Breast cancer Colorectal cancer Social History Smoking Status: Former smoker Tobacco Type: Declines Age Started Using Tobacco: 17; Age Quit Using Tobacco: 34; packs per day: 0.25; Cigarettes Per Day: HX SMOKED FOR A SHORT TIME; Second Hand Exposure: No; Do You Dip or Chew Tobacco: No; Hx Alcohol Use: No Hx Substance Use: No Preferred Language: Icelandic Communication Ability: Impaired Visual Impairment: Diminished Hearing Ability: Normal Dumper Bulk System Required: No Beliefs That Will Affect Care: None marital status: Single Current Living Situation: Alone Current Living Situation Comment: 2 CAT[address] current occupational status: employed 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 How many Children do You have: 1 Feels Safe at Home: Yes Childhood Exposure to Second-Hand Smoke: Yes Diet: regular Diet Comment: regular caffeine: Yes during the past year weight has: decreased > 10 lbs Dental Care, Regularly: Yes Physical Activity Frequency: 3-4 Times per Week Physical Activity Frequency Comment: PT at home and fit for play Seatbelt Use: always Sunscreen Use: Yes Assistive Devices: None Physical Exam Vital Signs (Past 24 Hours): Last Vital Signs Temp 36.4 C L 09/01/24 11:00 Pulse 78 09/01/24 11:00 Resp 18 09/01/24 11:00 BP 136/83 09/01/24 11:00 Pulse Ox 98 09/01/24 11:00 O2 Del Method Room Air 09/01/24 11:00 O2 Flow Rate 2 08/29/24 20:00 Results & Data (PSY) Medications Administered Acetaminophen (Acetaminophen 325 Mg Tab) 650 mg PO Q4H PRN PRN Reason: Pain Stop: 09/30/24 16:11 Last Admin: 08/31/24 16:57 Dose: 650 mg Documented By: ZAIN Clonazepam (Clonazepam 1 Mg Tab) 1 mg PO HS SYLVIE Stop: 09/30/24 20:59 Last Admin: 08/31/24 22:34 Dose: 1 mg Documented By: TP Enoxaparin Sodium (Enoxaparin Inj 40 Mg/0.4 Ml Syr) 40 mg SQ Q24H SYLVIE Stop: 09/28/24 21:29 Last Admin: 08/31/24 23:15 Dose: 40 mg Documented By: Admin: 08/30/24 19:15 Dose: 40 mg Documented By: Admin: 08/30/24 00:29 Dose: 40 mg Documented By: TP Ceftriaxone Sodium (Rocephin) 2,000 mg in 50 mls @ 100 mls/hr IV Q24H SYLVIE Stop: 09/04/24 19:59 Last Infusion: 08/31/24 23:04 Dose: Infused Documented By: Admin: 08/31/24 22:34 Dose: 100 mls/hr Documented By: Infusion: 08/30/24 19:45 Dose: Infused Documented By: Admin: 08/30/24 19:15 Dose: 100 mls/hr Documented By: TP Levothyroxine Sodium (Levothyroxine Sodium 112 Mcg Tablet) 112 mcg PO MoT [id number] [facility] Stop: 09/30/24 16:14 Last Admin: 08/31/24 16:57 Dose: 112 mcg Documented By: ZAIN Metoprolol Tartrate (Metoprolol Tartrate 1 Mg/Ml Vial) 5 mg IV Q4 PRN PRN Reason: Tachycardia Stop: 09/29/24 11:59 Last Admin: 08/31/24 18:19 Dose: 5 mg Documented By: Admin: 08/30/24 10:00 Dose: 5 mg Documented By: ZAIN Pantoprazole Sodium (Pantoprazole 40 Mg Tab) 40 mg PO BID [facility] Stop: 09/30/24 20:59 Last Admin: 08/31/24 22:34 Dose: 40 mg Documented By: TP Coding Level of Care Code 34531 IN/OBS CONSULT LVL 4,60M Diagnoses Delirium R41.0 [place] adverse reaction T43.595A Nephrogenic diabetes insipidus N25.1 Hypernatremia E87.0 Bipolar 1 disorder F31.9
[2024-09-01 12:05] LABS: Estimated Average Glucose 91 mg/dl; Hemoglobin A1C 4.8 % (4.5-5.6)
[2024-09-01] MEDS: FAMOTIDINE 40 MG TABLET PO SCH (14:08)
[2024-09-01] MEDS: AMANTADINE HCL 100 MG CAPSULE PO SCH (14:08)
[2024-09-01] MEDS: LINACLOTIDE 145 MCG CAPSULE PO SCH (14:08)
[2024-09-01] MEDS: CARBIDOPA/LEVODOPA 50/200MG EXT REL TAB PO SCH (14:08)
[2024-09-01] MEDS: METOPROLOL TARTRATE 25 MG TAB PO SCH (14:30)
[2024-09-01] MEDS: POTASSIUM CHLORIDE CRTAB 20 MEQ TABCR PO STA (14:30)
[2024-09-01] MEDS: SODIUM CHLORIDE 0.9% 1,000 ML IV SCH (14:34)
[2024-09-01] MEDS: POTASSIUM CHLORIDE / WTR 10 MEQ/100 ML PLCT IV SCH (14:34)
[2024-09-01] MEDS: METOPROLOL TARTRATE 1 MG/ML VIAL IV SCH ×2 (14:35→21:04)
--- NOTE | 2024-09-01 15:26 | Hospitalist Progress Note ---
Date of Service September 01, 2024 Assessment & Plan (1) SAMEER (acute kidney injury): Plan: Mild on admission. Creatinine was 1.3 and is now normalized. Monitor intake and output (2) Encephalopathy: Plan: Apparently acute metabolic encephalopathy related to UTI. Continue supportive care. Avoid [employer] depressants (3) UTI (urinary tract infection): Plan: Strep mitis and Gardnerella isolated. She is currently on intravenous Rocephin, day 3 (4) SVT (supraventricular tachycardia): Plan: Paroxysmal. Appreciate cardiology consultation. IV metoprolol for now scheduled dosing until she is able to take p.o. Telemetry (5) [place] adverse reaction: Plan: Toxicity ruled out. [place] level is 1.1 (6) Nephrogenic diabetes insipidus: Plan: Possible. Sodium 153 on admission and now 144. Monitor intake and output. Serial labs (7) Hypokalemia: Plan: Parenteral replacement while NPO. Serial labs Plan To be determined Admission and Anticipated Discharge Date Admission Date: August 29, 2024 Subjective The patient is awake but very lethargic. Nursing states she is unable to take pills orally. She has been made n.p.o. and is on IV fluids. Metoprolol has been started intravenously and parenteral potassium replacement ordered. Thyroid status is normal. Sodium improved down from 1 53-1 44. Mild hypokalemia noted at 3.4. Continue supportive care Review of Systems 2 Review of Systems: The patient is unable to accurately answer any questions regarding review of systems at this time Physical Exam 2 Physical Exam: General-lethargic. No fever HEENT-head atraumatic and normocephalic, pupils equal and reactive to light, extraocular muscles intact Neck-no lymphadenopathy or thyromegaly, trachea midline Chest-clear to auscultation. No rales, wheezing or rhonchi Cardiac-regular rate and rhythm, normal S1 and S2 Abdomen-normal bowel sounds, no hepatosplenomegaly Extremities-no cyanosis, clubbing, or edema Neuro-cranial nerves II through XII intact, motor and sensory function within normal limits, strength symmetrical, no focal deficits Psych-cannot assess Results & Data Results & Data Vital Signs (Past 12 Hours) Vital Signs Temp Pulse Pulse Resp BP BP Pulse Ox 09/01/24 15:09 69 139/100 09/01/24 14:35 69 146/81 H 09/01/24 12:43 09/01/24 11:00 36.4 C L 78 18 136/83 98 09/01/24 07:36 36.6 C 64 18 132/85 95 09/01/24 07:23 58 L 20 96 09/01/24 07:18 62 O2 Del Method 09/01/24 15:09 09/01/24 14:35 09/01/24 12:43 Room Air 09/01/24 11:00 Room Air 09/01/24 07:36 Room Air 09/01/24 07:23 Room Air 09/01/24 07:18 Laboratory Results 09/01/24 05:10 09/01/24 12:52 PG Care Time/CCT Total # of Minutes Spent Total Time Spent with Patient: Total time spent is greater than 50% in coordination of care (as documented) at patient's floor/unit and/or counseling patient: Coding Level of Care Code 09239 SUB INP/OBS CARE 3/50MIN Diagnoses SAMEER (acute kidney injury) N17.9 Encephalopathy G93.40 UTI (urinary tract infection) N39.0 SVT (supraventricular tachycardia) I47.10 [place] adverse reaction T43.595A Nephrogenic diabetes insipidus N25.1 Hypokalemia E87.6
[2024-09-01] MEDS: PANTOprazole 40 MG/10 ML SYR IV SCH (21:07)
[2024-09-01] MEDS: DEXTROSE 5% 1,000 ML IV SCH (22:09)
[2024-09-02 07:51] LABS: Basophils # (auto) 0.03 K/uL (0.00-0.20); Basophils % (auto) 0.3 %; Eosinophils # (auto) 0.08 K/uL (0.00-0.50); Eosinophils % (auto) 0.8 %; Hematocrit (blood only) 45.3 % (37.0-47.0); Hemoglobin 14.7 g/dl (12.0-16.0); Immature Granulocytes # (auto) 0.04 K/uL (0.01-0.20); Immature Granulocytes % (auto) 0.4 %; Lymphocytes # (auto) 0.58 K/uL (1.20-3.40); Lymphocytes % (auto) 5.6 %; Mean Corpuscular Hemoglobin 28.4 pg (25.0-34.0); Mean Corpuscular Hgb Conc 32.5 g/dL (32.0-36.0); Mean Corpuscular Volume 87.6 fL (80.0-100.0); Mean Platelet Volume 12.2 fL (9.4-12.4); Monocytes # (auto) 0.55 K/uL (0.11-0.59); Monocytes % (auto) 5.3 %; Neutrophils # (auto) 9.11 K/uL (1.40-6.50); Neutrophils % (auto) 87.6 %; Platelet Count 186 K/uL (130-400); RDW Coefficient of Variation 12.6 % (11.5-14.5); RDW Standard Deviation 40.4 fL (36.4-46.3); Red Blood Count 5.17 M/uL (4.20-5.40); White Blood Count 10.39 K/ul (4.8-10.8)
[2024-09-02 08:06] LABS: Albumin Level 3.6 gm/dl (3.4-5.0); BUN Creatinine Ratio 17.2 (10-20); Calcium 9.8 mg/dl (8.6-10.3); Creatinine Clr Calc Pharmacy 69.6 ml/min; Potassium 3.9 mmol/L (3.5-5.1)
--- NOTE | 2024-09-02 10:39 | Nephrology Progress Note ---
Date of Service September 02, 2024 Assessment & Plan (1) Hypernatremia: Plan: Free water deficit notably increased throughout the day while NPO. Ana remains polyuric. Urine is dilute. IV d5W was restarted overnight. Ana is volume depleted this AM and remains NPO. I have switched IVF to 1/2 NS @ 200 ml/hr and ordered a repeat sodium for this afternoon. She will likely need more free water through the day. If she remains NPO, the rate of infusion will need to be increased. I have requested a repeat serum sodium for this afternoon. Document strict I/O's. (2) Nephrogenic diabetes insipidus: Plan: Attributed to [place] use. Unclear if this is acute or chronic. Amiloride and thiazide diuretics have been held for now. Monitor sodium closely. Encourage oral fluids when able. (3) [place] adverse reaction: Plan: Appreciate psychiatry consultation. (4) Bipolar 1 disorder: Admission and Anticipated Discharge Date Admission Date: August 29, 2024 Subjective No acute events overnight. Ana remains polyuric. [place] draining dilute urine. She remains hypoactive and does not engage in conversation. She continues to endorse thirst and told me that she feels dehydrated. She remains NPO. Review of Systems Review of Systems: All systems reviewed & are unremarkable except as noted in HPI & below Physical Exam Constitutional: well developed; no acute distress Eyes: + anicteric sclerae; no corneal abnormal ity ENMT: Mouth: + dry oral mucous membranes; no oral mucosal abnormality Neck: normal visual inspection and trachea midline Respiratory: normal respiratory effort Auscultation: lungs clear to auscultation bilaterally Cardiovascular: Rate/Rhythm: regular rate Heart Sounds: normal S1 and normal S2 Extremities: no edema Musculoskeletal: Extremities: no cyanosis and no clubbing Skin: + turgor decreased; no jaundice Neurologic: Motor/Sensory: no asterixis Psychiatric: Orientation: alert and cooperative; + not oriented to place and + not oriented to time Results & Data Vital Signs (Past 12 Hours) Vital Signs Temp Pulse Pulse Resp BP BP BP 09/02/24 08:28 36.8 C 71 18 150/91 H 09/02/24 08:00 79 131/89 09/02/24 07:50 09/02/24 07:50 09/02/24 07:43 79 142/85 H 09/02/24 07:00 60 09/02/24 03:29 36.9 C 63 18 136/85 09/02/24 00:13 68 143/85 H 09/01/24 23:59 09/01/24 23:50 37.2 C 68 18 143/85 H Pulse Ox O2 Del Method O2 Del Method 09/02/24 08:28 98 Room Air 09/02/24 08:00 09/02/24 07:50 Room Air 09/02/24 07:50 Room Air 09/02/24 07:43 09/02/24 07:00 09/02/24 03:29 96 Room Air 09/02/24 00:13 09/01/24 23:59 Room Air 09/01/24 23:50 92 Room Air Laboratory Results Laboratory Results - last 24 hr 08/30/24 09/01/24 09/01/24 04:27 10:32 12:52 WBC RBC Hgb Hct MCV MCH MCHC RDW Std Deviation RDW Coeff of [place] Plt Count MPV Immature Gran % (Auto) Neut % (Auto) Lymph % (Auto) [place] % (Auto) Eos % (Auto) Baso % (Auto) Neut # (Auto) Lymph # (Auto) [place] # (Auto) Eos # (Auto) Baso # (Auto) Immature Gran # (Auto) Sodium 151 H Potassium Chloride Carbon Dioxide Anion Gap BUN Creatinine Est Cr Clr Drug Dosing eGFR BUN/Creatinine Ratio Glucose Estimat Average Glucose 91 Hemoglobin A1c 4.8 Osmolality Calcium Phosphorus Albumin Free T4 0.82 Free T3 2.83 Urine Osmolality 09/01/24 09/02/24 09/02/24 19:23 04:36 07:21 WBC 10.39 RBC 5.17 Hgb 14.7 Hct 45.3 MCV 87.6 MCH 28.4 MCHC 32.5 RDW Std Deviation 40.4 RDW Coeff of [place] 12.6 Plt Count 186 MPV 12.2 Immature Gran % (Auto) 0.4 Neut % (Auto) 87.6 Lymph % (Auto) 5.6 [place] % (Auto) 5.3 Eos % (Auto) 0.8 Baso % (Auto) 0.3 Neut # (Auto) 9.11 H Lymph # (Auto) 0.58 L [place] # (Auto) 0.55 Eos # (Auto) 0.08 Baso # (Auto) 0.03 Immature Gran # (Auto) 0.04 Sodium 150 H 154 H Potassium 3.9 Chloride 124 H Carbon Dioxide 24 Anion Gap 6 BUN 16 Creatinine 0.93 Est Cr Clr Drug Dosing 69.6 eGFR 70.36 BUN/Creatinine Ratio 17.2 Glucose 143 H Estimat Average Glucose Hemoglobin A1c Osmolality Pending Calcium 9.8 Phosphorus 3.0 Albumin 3.6 Free T4 Free T3 Urine Osmolality 142 L PG Care Time/CCT Total # of Minutes Spent Total Time Spent with Patient: Total time spent is greater than 50% in coordination of care (as documented) at patient's floor/unit and/or counseling patient: Coding Level of Care Code 66573 SUB INP/OBS CARE 3/50MIN Diagnoses Hypernatremia E87.0 Nephrogenic diabetes insipidus N25.1 [place] adverse reaction T43.595A Bipolar 1 disorder F31.9
[2024-09-02] MEDS: METOPROLOL TARTRATE 1 MG/ML VIAL IV STA (10:53)
[2024-09-02] MEDS ORDERED: STAT IV Infusion **Titration per Protocol STA (10:57)
--- NOTE | 2024-09-02 11:14 | Hospitalist Progress Note ---
Date of Service September 02, 2024 Assessment & Plan (1) SAMEER (acute kidney injury): Plan: Mild on admission. Creatinine was 1.3 and is now normalized. Monitor intake and output (2) Encephalopathy: Plan: Apparently acute metabolic encephalopathy related to UTI and psych issues. Appreciate psychiatry consultation and recommendations. Continue supportive care. Avoid BOX CUTTER depressants (3) UTI (urinary tract infection): Plan: Strep mitis and Gardnerella isolated. She is currently on intravenous Rocephin, day 4 (4) SVT (supraventricular tachycardia): Plan: Paroxysmal. She had another occurrence this morning September 02, associated with hypotension. She was given additional intravenous metoprolol, carotid massage, IV fluids. She has been transferred to the ICU for further care. Appreciate cardiology consultation. They have been notified of current events. Telemetry (5) [place] adverse reaction: Plan: Toxicity ruled out. 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 Sodium 153 on admission and transiently improved to 144 and now back up to 154 today, September 02. Monitor intake and output. Serial labs (7) Hypokalemia: Plan: Corrected with parenteral replacement while NPO. Serial labs Plan Transferred to ICU today, September 02, for further treatment of recurrent SVT and hypotension. Admission and Anticipated Discharge Date Admission Date: August 29, 2024 Subjective The patient developed recurrent SVT this morning accompanied by hypotension although she was relatively asymptomatic. Nursing states that she had no change in her physical status at the time. Maral toni was called and she was given intravenous metoprolol 5 mg along with carotid massage and IV fluids. She remains awake and alert although she has minimal interaction due to underlying psychiatric issues which is not new. She has been transferred to the ICU for further care. Cardiology has been notified. I will also call the sonMilad Review of Systems 2 Review of Systems: The patient is unable to accurately answer any questions regarding review of systems at this time Physical Exam 2 Physical Exam: General-lethargic. No fever HEENT-head atraumatic and normocephalic, pupils equal and reactive to light, extraocular muscles intact Neck-no lymphadenopathy or thyromegaly, trachea midline Chest-clear to auscultation. No rales, wheezing or rhonchi Cardiac-tachycardic regular rhythm, normal S1 and S2 Abdomen-normal bowel sounds, no hepatosplenomegaly Extremities-no cyanosis, clubbing, or edema Neuro-cranial nerves II through XII intact, motor and sensory function within normal limits, strength symmetrical, no focal deficits Psych-cannot assess Results & Data Results & Data Vital Signs (Past 12 Hours) Vital Signs Temp Pulse Pulse Resp BP BP BP 09/02/24 08:28 36.8 C 71 18 150/91 H 09/02/24 08:00 79 131/89 09/02/24 07:50 09/02/24 07:50 09/02/24 07:43 79 142/85 H 09/02/24 07:00 60 09/02/24 03:29 36.9 C 63 18 136/85 09/02/24 00:13 68 143/85 H 09/01/24 23:59 09/01/24 23:50 37.2 C 68 18 143/85 H Pulse Ox O2 Del Method O2 Del Method 09/02/24 08:28 98 Room Air 09/02/24 08:00 09/02/24 07:50 Room Air 09/02/24 07:50 Room Air 09/02/24 07:43 09/02/24 07:00 09/02/24 03:29 96 Room Air 09/02/24 00:13 09/01/24 23:59 Room Air 09/01/24 23:50 92 Room Air Laboratory Results 09/02/24 07:21 09/02/24 07:21 PG Care Time/CCT Total # of Minutes Spent Total Time Spent with Patient: Total time spent is greater than 50% in coordination of care (as documented) at patient's floor/unit and/or counseling patient: Coding Level of Care Code 47357 SUB INP/OBS CARE 3/50MIN Diagnoses SAMEER (acute kidney injury) N17.9 Encephalopathy G93.40 UTI (urinary tract infection) N39.0 SVT (supraventricular tachycardia) I47.10 [place] adverse reaction [id number] Nephrogenic diabetes insipidus N25.1 Hypokalemia E87.6
[2024-09-02] MEDS: SODIUM CHLORIDE 0.45 % 1,000 ML IV SCH (11:48)
--- NOTE | 2024-09-02 11:50 | Cardiology Progress Note ---
Date of Service September 02, 2024 Assessment & Plan (1) SVT (supraventricular tachycardia): (2) Bipolar 1 disorder: Plan She had been receiving IV metoprolol intermittently (since she remains NPO), despite this she was becoming relatively bradycardic and had a breakthrough PSVT. Management of her dysrhythmia is made more difficult by several circumstances: 1. She may at some point be back on lithium and therefore prone to long QT 2. She is currently NPO 3. Beta-blockers seem fairly ineffective 4. She has not been hypertensive and may be prone to hypotension with vasoactive medications Although amiodarone would likely be effective to suppress PSVT, would hold on starting this as a maintenance medication because she is relatively young for the long-term potential side effects of amiodarone and the QT prolongation of amiodarone would make it difficult to follow cardiac effects of lithium were she to restart this in the future. However, could use IV amiodarone if recurrent PSVT in the next day or so. I ordered an ECG to document current QTc interval. For maintenance, could shift from beta-padmini to calcium channel padmini and try diltiazem 30 mg PO q 8 hours while monitoring for hypotension. However, if she remains NPO would need to utilize a diltiazem drip (could use low-dose such as 2 mg/hour or give intermittently as 5 mg IV every 4 hours). Alternatively, could simply continue to monitor and start diltiazem drip for recurrent PSVT. Admission and Anticipated Discharge Date Admission Date: August 29, 2024 Subjective When seen earlier today she was nonverbal but looked at examiner. She neither confirm nor denied when asked about symptoms. She did not look uncomfortable. Not long after I had seen her, she developed a recurrent PSVT with rate up to 186 bpm and associated hypotension, prompting treatment with adenosine followed by transfer back to the ICU. When I stepped down to see her again, she was still nonverbal but looked comfortable. Telemetry prior to her PSVT showed sinus rhythm with frequent episodes of mild sinus bradycardia (40 bpm range). She had not had any PSVT for over 24 hours prior to this morning's episode Physical Exam Physical Exam: No distress. BP normotensive. Pulse 60 bpm and regular. Respirations 18 and unlabored. Skin: no ecchymoses or generalized lesions. HEENT: unremarkable. Neck: JVP at the clavicle at 90 degrees, no carotid bruits. Lungs: clear bilaterally. Cardiac: regular rhythm, normal S1-2, no murmur. Abdomen: benign. Extremities: no edema, pulses intact. Neurologic: Nonverbal but awake, grossly nonfocal. Results & Data Laboratory Results Normal CBC. Sodium 154, potassium 3.9, BUN 16, creatinine 0.93. Magnesium was 2.0 ye sterday. PG Care Time/CCT Total # of Minutes Spent Total Time Spent with Patient: Total time spent is greater than 50% in coordination of care (as documented) at patient's floor/unit and/or counseling patient: Coding Level of Care Code 13087 SUB INP/OBS CARE 3/50MIN Diagnoses SVT (supraventricular tachycardia) I47.10 Bipolar 1 disorder F31.9
[2024-09-02] MEDS: MAGNESIUM SULFATE / D5W 1 GM/100 ML BAG IV SCH (12:58)
--- NOTE | 2024-09-02 13:13 | Critical Care Progress Note ---
Date of Service September 02, 2024 Assessment & Plan (1) Encephalopathy: (2) SVT (supraventricular tachycardia): (3) UTI (urinary tract infection): (4) Sepsis: (5) Restless leg syndrome: (6) Hypothyroidism: (7) Respiratory alkalosis: (8) SAMEER (acute kidney injury): (9) Hypernatremia: Plan She remains generally encephalopathic. The etiology is unclear and likely related to polypharmacy and hyponatremia. May need to consider neurology consultation. Appreciate psychiatry consultation. Patient remains on Rocephin per hospitalist service for UTI. Suspect bout of hypotension today was related to idiopathic SVT. Appreciate cardiology input. Will continue to monitor in the ICU for today and likely downgrade tomorrow. Repeat BMP and magnesium is pending. Continue half-normal and consider transition to free water if sodium levels climbing. Will need to also consider insertion of NG tube due to lack of nutrition. Continue levothyroxine. Recheck TSH and T4 today. May need to back off on levothyroxine dosing. Continue as needed IV metoprolol as needed for SVT versus calcium channel padmini. Admission and Anticipated Discharge Date Admission Date: August 29, 2024 Subjective Patient transferred back to ICU due to period of SVT earlier today with heart rates in the 180s and associated hypotension. She received 5 mg of IV metoprolol became more hypotensive on the floor with systolics in the 60s. Upon arrival to the ICU, heart rate back into a sinus rhythm in the 70s and systolic blood pressure improved to the 140s. She received a 500 mL bolus of LR. She remains significantly encephalopathic and is only able to answer very simple questions such as her name and if she has any pain. Review of Systems Review of Systems: Unobtainable due to cognitive status Physical Exam Physical Exam: Constitutional: Patient appears to be of their stated age. Patient is in no apparent distress. Patient is well-developed. Obese. Eyes: Pupils are equal round and reactive to light. Conjunctivae are normal. Anicteric sclera. Ears nose, mouth and throat: No perioral cyanosis. Neck: Trachea is midline. Visual inspection is normal. Respiratory: Clear to auscultation bilaterally. No use of accessory muscles. No significant clubbing noted. Cardiovascular: Regular rate and rhythm. No murmurs. No edema. Gastrointestinal: Normal bowel sounds, soft, nontender and nondistended. No hepatosplenomegaly noted. Musculoskeletal: No cyanosis. Patient is able to move all extremities. Strength is 5 out of 5 in the upper and lower extremities. Skin: No rashes, warm dry and intact. Neurologic: No obvious focal neurological deficits seen. Psychiatric: Alert and oriented x 1. Results & Data Results & Data Vital Signs (Past 12 Hours) Vital Signs Temp Pulse Pulse Resp BP BP BP 09/02/24 12:15 36.8 C 09/02/24 12:00 142/86 H 09/02/24 12:00 142/86 H 09/02/24 11:57 72 17 09/02/24 11:56 69 09/02/24 11:51 77 09/02/24 11:39 71 15 09/02/24 11:27 69 17 09/02/24 10:53 186 H 09/02/24 10:45 87 11 L 09/02/24 10:39 89 12 09/02/24 10:27 80 14 09/02/24 10:09 83 17 09/02/24 09:33 68 19 09/02/24 09:00 70 21 09/02/24 08:51 50 L 18 09/02/24 08:36 61 18 09/02/24 08:28 36.8 C 71 18 150/91 H 09/02/24 08:15 51 L 09/02/24 08:03 48 L 09/02/24 08:00 79 131/89 09/02/24 07:50 09/02/24 07:50 09/02/24 07:48 56 L 09/02/24 07:43 79 142/85 H 09/02/24 07:30 72 09/02/24 07:06 66 09/02/24 07:00 60 09/02/24 06:51 50 L 09/02/24 06:39 53 L 09/02/24 06:21 71 09/02/24 06:03 75 09/02/24 05:27 69 09/02/24 05:02 63 09/02/24 04:32 68 09/02/24 04:26 50 L 09/02/24 03:45 65 09/02/24 03:30 69 09/02/24 03:29 36.9 C 63 18 136/85 09/02/24 03:21 76 09/02/24 02:45 75 09/02/24 02:30 52 L 09/02/24 02:18 60 09/02/24 02:03 48 L 09/02/24 01:45 48 L 09/02/24 01:36 54 L 09/02/24 01:21 87 Pulse Ox O2 Del Method O2 Del Method 09/02/24 12:15 09/02/24 12:00 09/02/24 12:00 09/02/24 11:57 99 09/02/24 11:56 09/02/24 11:51 09/02/24 11:39 100 09/02/24 11:27 99 09/02/24 10:53 09/02/24 10:45 09/02/24 10:39 09/02/24 10:27 09/02/24 10:09 09/02/24 09:33 09/02/24 09:00 09/02/24 08:51 09/02/24 08:36 09/02/24 08:28 98 Room Air 09/02/24 08:15 09/02/24 08:03 09/02/24 08:00 09/02/24 07:50 Room Air 09/02/24 07:50 Room Air 09/02/24 07:48 09/02/24 07:43 09/02/24 07:30 09/02/24 07:06 09/02/24 07:00 09/02/24 06:51 09/02/24 06:39 09/02/24 06:21 09/02/24 06:03 09/02/24 05:27 09/02/24 05:02 09/02/24 04:32 09/02/24 04:26 09/02/24 03:45 09/02/24 03:30 09/02/24 03:29 96 Room Air 09/02/24 03:21 09/02/24 02:45 09/02/24 02:30 09/02/24 02:18 09/02/24 02:03 09/02/24 01:45 09/02/24 01:36 09/02/24 01:21 Coding Level of Care Code 49998 SUB INP/OBS CARE MIN Diagnoses Encephalopathy G93.40 SVT (supraventricular tachycardia) I47.10 UTI (urinary tract infection) N39.0 Sepsis A41.9 Restless leg syndrome G25.81 Acquired hypothyroidism E03.9 Hypothyroidism type: acquired Respiratory alkalosis E87.3 SAMEER (acute kidney injury) N17.9 Hypernatremia E87.0 (6) Hypothyroidism Hypothyroidism type: acquired Qualified Code(s): E03.9 - Hypothyroidism, unspecified
[2024-09-02 13:59] LABS: BUN Creatinine Ratio 16.8 (10-20); Calcium 9.7 mg/dl (8.6-10.3); Creatinine Clr Calc Pharmacy 68.2 ml/min; Magnesium 2.4 mg/dl (1.7-2.4); Potassium 4.1 mmol/L (3.5-5.1); Thyroid Stimulating Hormone 0.191 uIu/ml (0.300-4.500)
[2024-09-02 14:36] LABS: T4 Free Thyroxine 0.76 ng/dl (0.61-1.60)
--- NOTE | 2024-09-02 16:20 | Psychiatric Progress Note ---
Date of Service September 02, 2024 Impression / Recommendations Impression Diagnostically consistent with encephalopathy likely fluctuating between hyperactive and hypoactive delirium. Suspect lack of engagement today due to hypoactive delirium presentation. No current evidence for catatonia given description of improvement yesterday. Difficult to determine if any current SI or psychosis given her inability to engage verbally. Agree that lithium induced diabetes insipidus seems to be most likely cause for delirium. Given her history of recent mild cognitive impairment it's likely that delirium may take longer to resolve. She does a clear and convincing history of significant bipolar disorder which necessitates management with a mood stabilizer. Per review of past inpatient psychiatry admission in 2019 she reported lithium had been only mood stabilizer that worked well for her and she preferred to avoid antipsychotics for mood stabilization given history of tardive dyskinesia (possibly from Seroquel in the past). Appears she's had past trials of Depakote and has been on concurrent lamictal. 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 It's unclear how frequently she uses her outpatient Klonopin but given that she consistently fills outpatient monthly scripts per PDMP agree that Klonopin could be necessary to avoid benzo withdrawal further complicating her delirium. However, benzodiazepines can also worsen delirium and prolong it's course so would consider lower dose of Klonopin and potential to taper over next few days as tolerated until delirium improves. 09/02/2024: Ongoing delirium and seems to have some visual hallucinations and possible paranoia. She denies any recent SI nor overdose nor substance use prior to admission. Olanzapine could be used if necessary if she begins to develop symptoms of agitation/aggression from delirium, otherwise would avoid given her history of tardive dyskinesia even to second generation antipsychotics. Seems she may be able to safely take lamictal starting tonight. Overall, I spent a total of 45 minutes with this case including review of chart records, review of labwork, review of EKG QTc, direct evaluation of the patient at bedside, counseling the patient, discussion of the patient with the Nurse and with the hospitalist provider, discussion with the psychiatric liason during clinical rounds and documentation in the electronic health record. (1) Delirium: (2) [place] adverse reaction: (3) Nephrogenic diabetes insipidus: (4) Hypernatremia: (5) Bipolar 1 disorder: Plan 09/02/2024: -olanzapine 2.5mg or 5mg daily prn po or IM could be used if agitation leading to unsafe behaviors or aggression develops; otherwise try to avoid given hx of tardive dyskinesia -No concerns for self-harm risk at this time as she denied SI 09/01/2024: -Once she is able to swallow pills/or tolerate crushed in food would emphasize restarting: * lamictal 150mg BID (if not restarted by 09/03/2024 then titration will have to restart at dose of lamictal 25mg HS daily) * Consider melatonin 3mg qhs * Klonopin 0.5mg HS with goal of tapering if encephalopathy persists -Once delirium improves can then restart psych meds including: * sertraline 50mg daily (only if lamictal remains at therapeutic dose of 150mg BID, if retitration required then continue to hold sertraline to prevent setting off dena) * clonidine 0.1mg HS * gabapentin 150mg BID -Would discontinue prior to admission * Doxepin * lithium * topiramate -Continue medical workup to rule out and treat any underlying causes contributing to potential delirium, avoid or limit use of deliriogenic medications (benzodiazepines, opioids, anticholinergics) -Continue with delirium prevention measures: raising blinds during the day, closing at night, frequent re-orientation, contact with family/friends, explai karyn procedures/nursing care measures prior to physical contact, correct any hearing and visual impairments -Psychiatry will continue to follow, please reach out if acute concerns arise for self-harm risk (SI), psychosis or dena Interval History Identifying Information Ana Trujillo is a 59 yo woman with a history of bipolar affective disorder (confirmed past episodes of dena per psych admission on [facility] in 2019), CKD, Prediabetes, Anxiety, Tardive Dyskinesia, OA, chronic back pain, scoliosis, anemia, Hypothyroidism, Hyperparathyroidism, Raynaud's, Restless leg, GERD and suspected mild neurocognitive impairment admitted for abrupt onset of confusion. Psychiatry consulted for recommendations for possible lithium toxicity and medication management for bipolar disorder/when to restart psychiatric medications. Chief Complaint "You're damn good Trace". Subjective Subjective Patient was seen & assessed and interval progress reviewed. Code toni and moved back to ICU this morning after episode of SVT with HR in the 200s per chart. Per cardiology notes was largely non-verbal with intense eye contact this morning as she was yesterday. However, on meeting with her this afternoon she is now talking but remains very confused. She is oriented to [facility] but not to month or year replies with "she watches Mari, she watches Carhart". Seems to be having visual hallucinations as she repeatedly references someone named Trace and tells me he's in the room while we're talking. She denies having a SI and denies taking any extra medication or other substances prior to admission telling me "because you can't kill pretty". Says other non-connected things like "that's a tactile situation" and "wash the sheets" as the reason for why she is in the hospital and "Trace is ugly". Physical Exam Vital Signs (Past 24 Hours) Last Vital Signs Temp 36.8 C 09/02/24 12:15 Pulse 72 09/02/24 15:30 Resp 12 09/02/24 13:30 BP 131/92 09/02/24 13:30 Pulse Ox 98 09/02/24 13:30 O2 Del Method Room Air 09/02/24 08:28 O2 Flow Rate 2 08/29/24 20:00 Results & Data ([facility]) Laboratory Results Laboratory Results - last 24 hr 09/01/24 09/02/24 09/02/24 19:23 04:36 07:21 WBC 10.39 RBC 5.17 Hgb 14.7 Hct 45.3 MCV 87.6 MCH 28.4 MCHC 32.5 RDW Std Deviation 40.4 RDW Coeff of [place] 12.6 Plt Count 186 MPV 12.2 Immature Gran % (Auto) 0.4 Neut % (Auto) 87.6 Lymph % (Auto) 5.6 Upson % (Auto) 5.3 Eos % (Auto) 0.8 Baso % (Auto) 0.3 Neut # (Auto) 9.11 H Lymph # (Auto) 0.58 L Upson # (Auto) 0.55 Eos # (Auto) 0.08 Baso # (Auto) 0.03 Immature Gran # (Auto) 0.04 Sodium 150 H 154 H Potassium 3.9 Chloride 124 H Carbon Dioxide 24 Anion Gap 6 BUN 16 Creatinine 0.93 Est Cr Clr Drug Dosing 69.6 eGFR 70.36 BUN/Creatinine Ratio 17.2 Glucose 143 H POC Glucose Osmolality 320 H Lactate Calcium 9.8 Phosphorus 3.0 Magnesium Albumin 3.6 TSH Free T4 Urine Osmolality 142 L Nasal Screen MRSA (PCR) 09/02/24 09/02/24 09/02/24 12:00 13:04 13:04 WBC RBC Hgb Hct MCV MCH MCHC RDW Std Deviation RDW Coeff of [place] Plt Count MPV Immature Gran % (Auto) Neut % (Auto) Lymph % (Auto) [place]pson % (Auto) Eos % (Auto) Baso % (Auto) Neut # (Auto) Lymph # (Auto) Upson # (Auto) Eos # (Auto) Baso # (Auto) Immature Gran # (Auto) Sodium Cancelled 154 H Potassium 4.1 Chloride 124 H Carbon Dioxide 25 Anion Gap 5 BUN 16 Creatinine 0.95 Est Cr Clr Drug Dosing 68.2 eGFR 68.59 BUN/Creatinine Ratio 16.8 Glucose 119 H POC Glucose Osmolality Lactate 1.8 Calcium 9.7 Phosphorus Magnesium 2.4 Albumin TSH 0.191 L Free T4 0.76 Urine Osmolality Nasal Screen MRSA (PCR) Negative 09/02/24 16:06 WBC RBC Hgb Hct MCV MCH MCHC RDW Std Deviation RDW Coeff of Juan Diego Plt Count MPV Immature Gran % (Auto) Neut % (Auto) Lymph % (Auto) Upson % (Auto) Eos % (Auto) Baso % (Auto) Neut # (Auto) Lymph # (Auto) Upson # (Auto) Eos # (Auto) Baso # (Auto) Immature Gran # (Auto) Sodium Potassium Chloride Carbon Dioxide Anion Gap BUN Creatinine Est Cr Clr Drug Dosing eGFR BUN/Creatinine Ratio Glucose POC Glucose 87 Osmolality Lactate Calcium Phosphorus Magnesium Albumin TSH Free T4 Urine Osmolality Nasal Screen MRSA (PCR) Current Inpatient Medications Current Inpatient Medications: Current Inpatient Medications Acetaminophen (Acetaminophen 325 Mg Tab) 650 mg PO Q4H PRN PRN Reason: Pain Stop: 09/30/24 16:11 Last Admin: 08/31/24 16:57 Dose: 650 mg Albuterol (Albuterol Hfa 8 Gm Inhaler) 2 puffs INH QIDR PRN PRN Reason: Wheezing Stop: 10/01/24 10:59 Amantadine HCl (Amantadine Hcl 100 Mg Capsule) 100 mg PO BID [facility] Stop: 10/01/24 09:44 Last Admin: 09/02/24 08:36 Dose: Not Given Carbidopa/Levodopa (Carbidopa/Levodopa 50/200mg Ext Rel Tab) 1 tab PO TID [facility] Stop: 10/01/24 13:59 Last Admin: 09/02/24 14:23 Dose: Not Given Enoxaparin Sodium (Enoxaparin Inj 40 Mg/0.4 Ml Syr) 40 mg SQ Q24H [facility] Stop: 09/28/24 21:29 Last Admin: 09/01/24 22:10 Dose: Not Given Ceftriaxone Sodium (Rocephin) 2,000 mg in 50 mls @ 100 mls/hr IV Q24H [facility] Stop: 09/04/24 19:59 Last Infusion: 09/02/24 00:26 Dose: Infused Pantoprazole Sodium (Protonix) 40 mg in 10 mls @ 5 mls/min IV BID [facility] Stop: 10/01/24 20:59 Last Admin: 09/02/24 09:24 Dose: 5 mls/min Sodium Chloride (1/2 Nss) 1,000 mls @ 200 mls/hr IV .Q5H [facility] Stop: 09/03/24 10:44 Last Admin: 09/02/24 11:48 Dose: 200 mls/hr Phenylephrine HCl (Phenylephrine/Nss) 25 mg in 250 mls @ 25.77 mls/hr IV .Q9H43M [facility]; Protocol Stop: 10/02/24 10:59 Lamotrigine (Lamotrigine 25 Mg Tab) 150 mg PO BID [facility]; Protocol Stop: 10/02/24 20:59 Levothyroxine Sodium (Levothyroxine Sodium 125 Mcg Tablet) 125 mcg PO [id number] [facility] Stop: 10/05/24 06:29 Levothyroxine Sodium (Levothyroxine Sodium 100 Mcg Tablet) 100 mcg PO [id number] [facility] Stop: 10/03/24 06:29 Metoprolol Tartrate (Metoprolol Tartrate 1 Mg/Ml Vial) 5 mg IV Q12H [facility] Stop: 10/01/24 20:59 Last Admin: 09/02/24 07:43 Dose: 5 mg Pantoprazole Sodium (Pantoprazole 40 Mg Tab) 40 mg PO BID [facility] Stop: 09/30/24 20:59 Last Admin: 09/01/24 14:08 Dose: Not Given
[2024-09-02 20:26] LABS: BUN Creatinine Ratio 16.3 (10-20); Calcium 9.1 mg/dl (8.6-10.3); Creatinine Clr Calc Pharmacy 66.1 ml/min; Potassium 3.8 mmol/L (3.5-5.1)
[2024-09-02] MEDS: lamoTRIgine 25 MG TAB PO SCH (20:31)
[2024-09-02] MEDS: OLANZapine 10 MG/2.1 ML SDV IM STA (22:43)
--- NOTE | 2024-09-02 22:52 | Communication Note ---
Date of Service: September 02, 2024 At bedside as patient is getting out of bed confused. O: She has taken her evening medications (Lamictal) with water earlier without any difficulty. She is now yelling at staff, cursing at them, as well as spitting and is not directable A/P Delirium hyperactive vs. her underlying bipolar disorder or combination of both - She will have a 1:1 sitter for de-escalation as well as communication- we have attempted re-orientation, and lights have been off this evening and blinds open. - Psych note reviewed and appreciate their input from earlier - We will try to add her Klonopin on at 0.5 mg PO and see if this helps her mood/aggressiveness - If she remains harmful to herself by getting out of bed or continues to spit at staff - then will use IM Olanzapine 5mg [place] (ACN-)
[2024-09-02] MEDS: clonazePAM 0.5 MG TAB PO ONE (22:58)
[2024-09-02 23:08] LABS: BUN Creatinine Ratio 15.4 (10-20); Calcium 9.2 mg/dl (8.6-10.3); Creatinine Clr Calc Pharmacy 62.3 ml/min; Potassium 4.4 mmol/L (3.5-5.1)
[2024-09-02] MEDS: PHENYLEPHRINE/NSS 25 MG/250 ML BAG IV SCH (23:37)
[2024-09-03 02:35] LABS: Basophils # (auto) 0.04 K/uL (0.00-0.20); Basophils % (auto) 0.4 %; Hematocrit (blood only) 41.5 % (37.0-47.0); Hemoglobin 13.4 g/dl (12.0-16.0); Immature Granulocytes # (auto) 0.03 K/uL (0.01-0.20); Immature Granulocytes % (auto) 0.3 %; Lymphocytes # (auto) 1.02 K/uL (1.20-3.40); Mean Corpuscular Hemoglobin 28.6 pg (25.0-34.0); Mean Corpuscular Hgb Conc 32.3 g/dL (32.0-36.0); Mean Corpuscular Volume 88.7 fL (80.0-100.0); Mean Platelet Volume 11.3 fL (9.4-12.4); Monocytes # (auto) 0.47 K/uL (0.11-0.59); Monocytes % (auto) 4.6 %; Neutrophils # (auto) 8.52 K/uL (1.40-6.50); Neutrophils % (auto) 83.7 %; Platelet Count 150 K/uL (130-400); RDW Coefficient of Variation 12.6 % (11.5-14.5); RDW Standard Deviation 40.9 fL (36.4-46.3); Red Blood Count 4.68 M/uL (4.20-5.40); White Blood Count 10.18 K/ul (4.8-10.8)
[2024-09-03 02:52] LABS: Albumin Level 3.3 gm/dl (3.4-5.0); BUN Creatinine Ratio 19.3 (10-20); Calcium 8.3 mg/dl (8.6-10.3); Creatinine Clr Calc Pharmacy 73.6 ml/min; Potassium 3.7 mmol/L (3.5-5.1)
[2024-09-03] MEDS: LEVOTHYROXINE SODIUM 100 MCG TABLET PO SCH (06:26)
[2024-09-03] MEDS: OLANZapine 10 MG/2.1 ML SDV IM STA (07:55)
--- NOTE | 2024-09-03 08:02 | Critical Care Progress Note ---
Date of Service September 03, 2024 Assessment & Plan (1) Encephalopathy: (2) SVT (supraventricular tachycardia): (3) UTI (urinary tract infection): (4) Sepsis: (5) Restless leg syndrome: (6) Hypothyroidism: (7) Respiratory alkalosis: (8) SAMEER (acute kidney injury): (9) Hypernatremia: Plan She remains generally encephalopathic and likely delirious. The etiology is unclear and likely related to polypharmacy and hyponatremia. May need to consider neurology consultation. Appreciate psychiatry consultation. Treating with as needed olanzapine. Patient remains on Rocephin per hospitalist service for UTI. TSH rechecked and is slowly coming back up. Levothyroxine dosing has decreased to help with hyperthyroidism. Continue with hypotonic fluids due to patient's ongoing hypernatremia. Appreciate nephrology input. Replace lites as needed. Continue home psych meds. Hold on further lithium given possible lithium toxicity and nephrogenic induced DI. Continue Lovenox for DVT prophylaxis. Continue as needed IV metoprolol as needed for SVT versus calcium channel b locker. Patient is a to be transferred to [facility] telemetry. Orders have been placed. Discussed with bedside nurse. Admission and Anticipated Discharge Date Admission Date: August 29, 2024 Subjective Throughout the night and this morning patient had been screaming help and asking for water. Difficult to redirect. Occasionally spitting at staff. Will give another dose of 5 mg IV olanzapine to help with delirium. Hemodynamically she has been stable and she has been without SVT. Review of Systems Review of Systems: All systems reviewed & are unremarkable except as noted in HPI & below Physical Exam Physical Exam: Constitutional: Patient appears to be of their stated age. Delirious. Obese. Eyes: Pupils are equal round and reactive to light. Conjunctivae are normal. Anicteric sclera. Ears nose, mouth and throat: No perioral cyanosis. Neck: Trachea is midline. Visual inspection is normal. Respiratory: Clear to auscultation bilaterally. No use of accessory muscles. No significant clubbing noted. Cardiovascular: Regular rate and rhythm. No murmurs. No edema. Gastrointestinal: Normal bowel sounds, soft, nontender and nondistended. No hepatosplenomegaly noted. Musculoskeletal: No cyanosis. Patient is able to move all extremities. Strength is 5 out of 5 in the upper and lower extremities. Skin: No rashes, warm dry and intact. Neurologic: No obvious focal neurological deficits seen. Psychiatric: Alert and oriented x 1. Frequently shouting. Results & Data Results & Data Vital Signs (Past 12 Hours) Vital Signs Pulse Resp BP Pulse Ox O2 Del Method O2 Flow Rate 09/03/24 06:30 85 18 123/88 97 Room Air 09/03/24 06:00 79 16 133/96 100 Room Air 09/03/24 05:30 75 21 147/94 H 97 Room Air 09/03/24 05:00 76 14 130/79 96 Room Air 09/03/24 04:30 72 16 137/86 97 Oxymask 2 09/03/24 03:30 68 18 156/88 H 98 Oxymask 2 09/03/24 02:30 66 17 145/80 H 99 Oxymask 2 09/03/24 02:00 71 17 142/82 H 99 Oxymask 2 09/03/24 01:30 68 18 135/93 100 Oxymask 2 09/03/24 01:00 72 21 117/70 100 Oxymask 2 09/03/24 00:30 65 20 120/64 95 Oxymask 2 09/03/24 00:01 67 22 134/61 97 Oxymask 2 09/03/24 00:00 78 09/02/24 23:30 80 21 136/74 97 Oxymask 2 09/02/24 23:01 90 23 148/69 H 98 Oxymask 2 09/02/24 21:30 71 15 150/87 H 98 Oxymask 2 09/02/24 20:45 79 148/69 H 09/02/24 20:29 83 155/106 H Coding Level of Care Code 92911 SUB INP/OBS CARE 08/22MIN Diagnoses Encephalopathy G93.40 SVT (supraventricular tachycardia) I47.10 UTI (urinary tract infection) N39.0 Sepsis A41.9 Restless leg syndrome G25.81 Acquired hypothyroidism E03.9 Hypothyroidism type: acquired Respiratory alkalosis E87.3 SAMEER (acute kidney injury) N17.9 Hypernatremia E87.0 (6) Hypothyroidism Hypothyroidism type: acquired Qualified Code(s): E03.9 - Hypothyroidism, unspecified
[2024-09-03] MEDS: OLANZapine 10 MG/2.1 ML SDV IM ONE (09:17)
[2024-09-03 09:38] LABS: Lamictal(Lamotrigine) 0.8 mcg/mL (2.5-15.0); Topiramate < 0.5 mcg/mL (see note)
--- NOTE | 2024-09-03 10:17 | Cardiology Progress Note ---
Date of Service September 03, 2024 Assessment & Plan (1) SVT (supraventricular tachycardia): (2) Bipolar 1 disorder: Plan Receiving metoprolol tartrate 5 mg IV every 12 hours while she is NPO. Probably not worth the logistical challenge of starting a diltiazem drip in intermittently cooperating patient, so reasonable to remain on beta-padmini for now, but once she starts taking oral medications would switch to diltiazem 80 mg p.o. every 8 hours. Her blood pressure has been normotensive to mildly hypertensive, so hopefully she will tolerate change to this medication. The beta-padmini was causing mild bradycardia and seemed ineffective (given her breakthrough PSVT yesterday). If she cannot tolerate diltiazem or if she has recurrent PSVT despite this, since it seems she will not be going on lithium, she could be started on amiodarone 200 mg twice daily. Would first attempt diltiazem, however, since when she starts the amiodarone it may be more difficult to elicit PSVT should she proceed to cardiac ablation in the future. Will continue to follow. Admission and Anticipated Discharge Date Admission Date: August 29, 2024 Subjective No further PSVT since her episode late yesterday morning. Patient still generally n.p.o., attempts at oral intake will be pursued this morning. Patient remains nonverbal but looks at examiner. Telemetry showed sinus rhythm without PSVT since yesterday. Physical Exam Physical Exam: No distress. BP normotensive. Pulse 85 bpm and regular. Respirations 18 and unlabored. Skin: no ecchymoses or generalized lesions. HEENT: unremarkable. Neck: JVP at the clavicle at 90 degrees, no carotid bruits. Lungs: clear bilaterally. Cardiac: regular rhythm, normal S1-2, no murmur. Abdomen: benign. Extremities: no edema, pulses intact. Neurologic: Nonverbal but awake, grossly nonfocal. Results & Data Laboratory Results Normal CBC. Sodium 149, potassium 3.7, BUN 17, creatinine 0.88. PG Care Time/CCT Total # of Minutes Spent Total Time Spent with Patient: Total time spent is greater than 50% in coordination of care (as documented) at patient's floor/unit and/or counseling patient: Coding Level of Care Code 90107 SUB INP/OBS CARE 2/35MIN Diagnoses SVT (supraventricular tachycardia) I47.10 Bipolar 1 disorder F31.9
--- NOTE | 2024-09-03 10:42 | Electrocardiogram Report ---
Test Reason : Blood Pressure : */* mmHG Vent. Rate : 183 BPM Atrial Rate : 416 BPM P-R Int : * ms QRS Dur : 78 ms QT Int : 258 ms P-R-T Axes : * 42 205 degrees QTcB Int : 450 ms Poor data quality, interpretation may be adversely affected Supraventricular tachycardia Diffuse Nonspecific ST and T wave abnormality Abnormal ECG When compared with ECG of 30-Aug-2024 13:40, Supraventricular tachycardia now present HR has increased by [address] and T wave abnormality now present Confirmed by Jose Luis Rey [id number] on 09/03/2024 10:41:30 AM Referred By: REFERRED SELF Confirmed By: Jose Luis Rye
--- NOTE | 2024-09-03 11:30 | Nephrology Progress Note ---
Date of Service September 03, 2024 Assessment & Plan (1) Hypernatremia: Plan: Ana remains polyuric. Urine is dilute. Start repeat sodium now. Ana is tolerating PO fluids. I will try to wean IVF based on repeat sodium. Document strict I/O's. (2) Nephrogenic diabetes insipidus: Plan: Attributed to [place] use. Unclear if this is acute or chronic. Amiloride and thiazide diuretics have been held for now. Monitor sodium closely. Encourage oral fluids when able. (3) [place] adverse reaction: Plan: No current plan to revisit medication. (4) Bipolar 1 disorder: Admission and Anticipated Discharge Date Admission Date: August 29, 2024 Subjective Transferred to the ICU with PSVT yesterday. Hyeractive and agressive overnight. Resting comfortably in her ICU bed this morning. Tolerating PO. Drinking plenty of fluids. Remains polyuric with dilute urine in [place]. Review of Systems Review of Systems: All systems reviewed & are unremarkable except as noted in HPI & below Physical Exam Constitutional: well developed; no acute distress Eyes: + anicteric sclerae; no corneal abnormal ity ENMT: Mouth: no oral mucosal abnormality and oral mucous membranes not dry Neck: normal visual inspection and trachea midline Respiratory: normal respiratory effort Cardiovascular: Rate/Rhythm: regular rate Extremities: no edema Musculoskeletal: Extremities: no cyanosis and no clubbing Skin: no jaundice Neurologic: Motor/Sensory: no asterixis Psychiatric: Orientation: alert and cooperative; + not oriented to place and + not oriented to time Results & Data Vital Signs (Past 12 Hours) Vital Signs Pulse Resp BP Pulse Ox O2 Del Method O2 Flow Rate 09/03/24 10:15 53 L 109/76 09/03/24 06:30 85 18 123/88 97 Room Air 09/03/24 06:00 79 16 133/96 100 Room Air 09/03/24 05:30 75 21 147/94 H 97 Room Air 09/03/24 05:00 76 14 130/79 96 Room Air 09/03/24 04:30 72 16 137/86 97 Oxymask 2 09/03/24 03:30 68 18 156/88 H 98 Oxymask 2 09/03/24 02:30 66 17 145/80 H 99 Oxymask 2 09/03/24 02:00 71 17 142/82 H 99 Oxymask 2 09/03/24 01:30 68 18 135/93 100 Oxymask 2 09/03/24 01:00 72 21 117/70 100 Oxymask 2 09/03/24 00:30 65 20 120/64 95 Oxymask 2 09/03/24 00:01 67 22 134/61 97 Oxymask 2 09/03/24 00:00 78 09/02/24 23:30 80 21 136/74 97 Oxymask 2 Laboratory Results Laboratory Results - last 24 hr 08/29/24 09/02/24 09/02/24 22:49 12:00 13:04 WBC RBC Hgb Hct MCV MCH MCHC RDW Std Deviation RDW Coeff of [place] Plt Count MPV Immature Gran % (Auto) Neut % (Auto) Lymph % (Auto) [place] % (Auto) Eos % (Auto) Baso % (Auto) Neut # (Auto) Lymph # (Auto) [place] # (Auto) Eos # (Auto) Baso # (Auto) Immature Gran # (Auto) Sodium Cancelled Potassium Chloride Carbon Dioxide Anion Gap BUN Creatinine Est Cr Clr Drug Dosing eGFR BUN/Creatinine Ratio Glucose POC Glucose Lactate Calcium Phosphorus Magnesium Albumin TSH Free T4 Nasal Screen MRSA (PCR) Negative Lamotrigine 0.8 L Topiramate < 0.5 L 09/02/24 09/02/24 09/02/24 13:04 16:06 19:48 WBC RBC Hgb Hct MCV MCH MCHC RDW Std Deviation RDW Coeff of [place] Plt Count MPV Immature Gran % (Auto) Neut % (Auto) Lymph % (Auto) [place] % (Auto) Eos % (Auto) Baso % (Auto) Neut # (Auto) Lymph # (Auto) [place] # (Auto) Eos # (Auto) Baso # (Auto) Immature Gran # (Auto) Sodium 154 H 153 H Potassium 4.1 Chloride 124 H Carbon Dioxide 25 Anion Gap 5 BUN 16 Creatinine 0.95 Est Cr Clr Drug Dosing 68.2 eGFR 68.59 BUN/Creatinine Ratio 16.8 Glucose 119 H POC Glucose 87 Lactate 1.8 Calcium 9.7 Phosphorus Magnesium 2.4 Albumin TSH 0.191 L Free T4 0.76 Nasal Screen MRSA (PCR) Lamotrigine Topiramate 09/02/24 09/02/24 09/02/24 19:48 22:26 23:04 WBC RBC Hgb Hct MCV MCH MCHC RDW Std Deviation RDW Coeff of [place] Plt Count MPV Immature Gran % (Auto) Neut % (Auto) Lymph % (Auto) [place] % (Auto) Eos % (Auto) Baso % (Auto) Neut # (Auto) Lymph # (Auto) [place] # (Auto) Eos # (Auto) Baso # (Auto) Immature Gran # (Auto) Sodium 153 H 149 H Potassium 3.8 4.4 Chloride 122 H 119 H Carbon Dioxide 24 24 Anion Gap 7 6 BUN 16 16 Creatinine 0.98 1.04 Est Cr Clr Drug Dosing 66.1 62.3 eGFR 66.08 61.53 BUN/Creatinine Ratio 16.3 15.4 Glucose 106 H 115 H POC Glucose 97 Lactate Calcium 9.1 9.2 Phosphorus Magnesium Albumin TSH Free T4 Nasal Screen MRSA (PCR) Lamotrigine Topiramate 09/03/24 09/03/24 02:15 05:49 WBC 10.18 RBC 4.68 Hgb 13.4 Hct 41.5 MCV 88.7 MCH 28.6 MCHC 32.3 RDW Std Deviation 40.9 RDW Coeff of [place] 12.6 Plt Count 150 MPV 11.3 Immature Gran % (Auto) 0.3 Neut % (Auto) 83.7 Lymph % (Auto) 10.0 [place] % (Auto) 4.6 Eos % (Auto) 1.0 Baso % (Auto) 0.4 Neut # (Auto) 8.52 H Lymph # (Auto) 1.02 L [place] # (Auto) 0.47 Eos # (Auto) 0.10 Baso # (Auto) 0.04 Immature Gran # (Auto) 0.03 Sodium 149 H Potassium 3.7 Chloride 121 H Carbon Dioxide 22 Anion Gap 6 BUN 17 Creatinine 0.88 Est Cr Clr Drug Dosing 73.6 eGFR 75.19 BUN/Creatinine Ratio 19.3 Glucose 86 POC Glucose 79 Lactate Calcium 8.3 L Phosphorus 3.0 Magnesium Albumin 3.3 L TSH Free T4 Nasal Screen MRSA (PCR) Lamotrigine Topiramate PG Care Time/CCT Total # of Minutes Spent Total Time Spent with Patient: Total time spent is greater than 50% in coordination of care (as documented) at patient's floor/unit and/or counseling patient: Coding Level of Care Code 13589 SUB INP/OBS CARE 3/50MIN Diagnoses Hypernatremia E87.0 Nephrogenic diabetes insipidus N25.1 [place] adverse reaction T43.595A Bipolar 1 disorder F31.9
[2024-09-03] MEDS: dilTIAZem HCl 60 MG TAB PO SCH ×2 (11:32→11:38)
[2024-09-03 12:32] LABS: Marijuana Quant, GCMS Urine 5 ng/mL (<5)
[2024-09-03] MEDS: dilTIAZem HCL 30 MG TAB PO SCH (13:25)
[2024-09-03] MEDS: OLANZapine 10 MG/2.1 ML SDV IM PRN (13:25)
--- NOTE | 2024-09-03 14:49 | Hospitalist Progress Note ---
Date of Service September 03, 2024 Assessment & Plan (1) SAMEER (acute kidney injury): Plan: Mild on admission. Creatinine was 1.3 and has now normalized. Monitor intake and output (2) Encephalopathy: Plan: Apparently acute metabolic encephalopathy related to UTI, electrolyte imbalance and psych issues. Appreciate psychiatry consultation and recommendations. Continue supportive care. Avoid [employer] depressants (3) UTI (urinary tract infection): Plan: Strep mitis and [place] isolated. She is currently on intravenous Rocephin, day 5. Rocephin will be discontinued tomorrow, September 04 (4) SVT (supraventricular tachycardia): Plan: Paroxysmal. She had another occurrence on the morning of September 02, associated with hypotension. She was given additional intravenous metoprolol, carotid massage, IV fluids. She was then transferred to the ICU for further care. She has since converted back to normal sinus rhythm and blood pressure has stabilized. Appreciate cardiology consultation and recommendations. Oral diltiazem has been started. Metoprolol has been discontinued due to its apparent ineffectiveness telemetry (5) [place] adverse reaction: Plan: Toxicity ruled out. [place] level is 1.1. 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 Sodium elevated to 153 on admission and still remains elevated but improved. Appreciate nephrology consultation and recommendations. She is on IV fluids at a significant rate. Monitor intake and output. Serial labs (7) Hypokalemia: Plan: Corrected with parenteral replacement while NPO. Serial labs Plan Will transfer out of ICU today, September 03. Eventual disposition depends on her clinical course Admission and Anticipated Discharge Date Admission Date: August 29, 2024 Subjective Awake and alert but confused. Her boyfriend is at the bedside. She required intramuscular Zyprexa last evening for agitation. Cardiology has recommended addition of oral diltiazem to hopefully help prevent further SVT episodes. Rocephin will be discontinued tomorrow, September 04. It has been given since admission for the strep mitis UTI sodium is 149 today thought to be due to lithium induced diabetes insipidus. She continues on intravenous fluids. Psychiatry consultation noted. Review of Systems 2 Review of Systems: The patient is unable to accurately answer any questions regarding review of systems at this time Physical Exam 2 Physical Exam: Awake and alert but she appears to be suspicious and distrusting of me. She will not allow me to examine her Results & Data Results & Data Vital Signs (Past 12 Hours) Vital Signs Pulse Resp BP Pulse Ox O2 Del Method O2 Flow Rate 09/03/24 10:15 53 L 109/76 09/03/24 06:30 85 18 123/88 97 Room Air 09/03/24 06:00 79 16 133/96 100 Room Air 09/03/24 05:30 75 21 147/94 H 97 Room Air 09/03/24 05:00 76 14 130/79 96 Room Air 09/03/24 04:30 72 16 137/86 97 Oxymask 2 09/03/24 03:30 68 18 156/88 H 98 Oxymask 2 Laboratory Results 09/03/24 02:15 09/03/24 11:31 PG Care Time/CCT Total # of Minutes Spent Total Time Spent with Patient: Total time spent is greater than 50% in coordination of care (as documented) at patient's floor/unit and/or counseling patient: Coding Level of Care Code 28070 SUB INP/OBS CARE 3/50MIN Diagnoses SAMEER (acute kidney injury) N17.9 Encephalopathy G93.40 UTI (urinary tract infection) N39.0 SVT (supraventricular tachycardia) I47.10 [place] adverse reaction T43.595A Nephrogenic diabetes insipidus N25.1 Hypokalemia E87.6
[2024-09-03] MEDS: clonazePAM 0.5 MG TAB PO SCH (20:31)
[2024-09-03] MEDS: lamoTRIgine 100 MG TAB PO SCH (20:32)
[2024-09-03] MEDS ORDERED: METOPROLOL TARTRATE 25 MG TAB PO SCH (21:00)
[2024-09-04 07:07] LABS: BUN Creatinine Ratio 13.5 (10-20); Calcium 9.4 mg/dl (8.6-10.3); Creatinine Clr Calc Pharmacy 72.3 ml/min; Potassium 3.4 mmol/L (3.5-5.1)
[2024-09-04] MEDS: OLANZapine 10 MG/2.1 ML SDV IM STA (08:00)
[2024-09-04] MEDS: OLANZapine 10 MG/2.1 ML SDV IM PRN (10:14)
--- NOTE | 2024-09-04 10:35 | Nephrology Progress Note ---
Date of Service September 04, 2024 Assessment & Plan (1) Hypernatremia: Plan: nAa remains polyuric. Urine is dilute. IVF were stopped yesterday. She is drinking enough fluids to maintain a serum sodium of ~147 mmol/L this AM. Continue to encourage PO fluids. Document strict I/O's. Monitor sodium closely. Ana appears to be regulating her free water deficit reasonably well based on thirst. Continue to monitor labs twice daily. Nephrology will follow peripherally, please call with questions or concerns. If sodium starts to rise, restart IV D5W to correct free water deficit and call nephrology supplier relationship director. (2) Nephrogenic diabetes insipidus: Plan: Attributed to [place] use. Unclear if this is acute or chronic. Amiloride and thiazide diuretics have been held for now. Monitor sodium closely. Encourage oral fluids. (3) [place] adverse reaction: (4) Bipolar 1 disorder: Admission and Anticipated Discharge Date Admission Date: August 29, 2024 Subjective Ana is hyperactive and delirious. 1:1 at the bedside. She is making aggressive remarks and spitting. She appears to demonstrate some active psychosis. She is drinking plenty of fluids. [place] continues to drain a large volume of dilute urine. Review of Systems Review of Systems: Unobtainable due to cognitive status Physical Exam Constitutional: well developed and + altered mental status Eyes: + anicteric sclerae ENMT: Mouth: no oral mucosal abnormality and oral mucous membranes not dry Neck: normal visual inspection and trachea midline Respiratory: normal respiratory effort Cardiovascular: Rate/Rhythm: regular rate Skin: no jaundice Neurologic: Motor/Sensory: no asterixis Psychiatric: Affect: + angry affect Mood: + irritable mood Thought Proce ss: + looseness of associations and + incoherent thought process Results & Data Vital Signs (Past 12 Hours) Vital Signs Temp Pulse Resp BP Pulse Ox Pulse Ox O2 Del Method 09/04/24 09:53 36.5 C 88 19 148/83 H 92 Room Air 09/04/24 01:22 36.3 C L 88 18 130/83 93 Room Air 09/04/24 01:00 93 O2 Del Method 09/04/24 09:53 09/04/24 01:22 09/04/24 01:00 Room Air Laboratory Results Laboratory Results - last 24 hr 08/29/24 09/03/24 09/03/24 19:36 11:31 22:47 Sodium 147 H 147 H Potassium Chloride Carbon Dioxide Anion Gap BUN Creatinine Est Cr Clr Drug Dosing eGFR BUN/Creatinine Ratio Glucose POC Glucose Calcium U Marijuana THC Carboxy 5 H Drug Screen Comment SEE NOTE 09/04/24 09/04/24 00:54 05:43 Sodium 147 H Potassium 3.4 L Chloride 116 H Carbon Dioxide 25 Anion Gap 6 BUN 12 Creatinine 0.89 Est Cr Clr Drug Dosing 72.3 eGFR 74.18 BUN/Creatinine Ratio 13.5 Glucose 74 POC Glucose 72 Calcium 9.4 U Marijuana THC Carboxy Drug Screen Comment PG Care Time/CCT Total # of Minutes Spent Total Time Spent with Patient: Total time spent is greater than 50% in coordination of care (as documented) at patient's floor/unit and/or counseling patient: Coding Level of Care Code 34536 SUB INP/OBS CARE 3/50MIN Diagnoses Hypernatremia E87.0 Nephrogenic diabetes insipidus N25.1 [place] adverse reaction T43.595A Bipolar 1 disorder F31.9
[2024-09-04] MEDS: POTASSIUM CHLORIDE CRTAB 20 MEQ TABCR PO SCH (12:12)
--- NOTE | 2024-09-04 12:24 | Cardiology Progress Note ---
Date of Service September 04, 2024 Assessment & Plan (1) SVT (supraventricular tachycardia): (2) Bipolar 1 disorder: Plan Given frequent breakthrough PSVT, at times hemodynamically significant (code purple due to hypotension during an episode earlier this week) despite use of first beta-padmini and calcium channel padmini, will initiate antiarrhythmic. Given tendency to bradycardia and hypotension will start amiodarone 200 mg daily without loading dose and discontinue diltiazem. 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 At the time of discharge, please arrange for follow-up with one of our electrophysiology specialist (Dr. Machado or Dr. Mora) to evaluate for potential ablation. Case discussed with Dr. Goncalves. Dr. Mo will be rounding for the weekend, please contact him if any further cardiac issues arise. Admission and Anticipated Discharge Date Admission Date: August 29, 2024 Subjective Patient is nonverbal. Looks at examiner, awake and alert. Telemetry showed sinus rhythm in the 70 bpm range with several episodes of PSVT this morning (rates up to 150 bpm). Physical Exam Physical Exam: No distress. BP normotensive. Pulse 88 bpm and regular. Respirations 18 and unlabored. Skin: no ecchymoses or generalized lesions. HEENT: unremarkable. Neck: JVP at the clavicle at 90 degrees, no carotid bruits. Lungs: clear bilaterally. Cardiac: regular rhythm, normal S1-2, no murmur. Abdomen: benign. Extremities: no edema, pulses intact. Neurologic: Nonverbal but awake, grossly nonfocal. Results & Data Vital Signs (Past 12 Hours) Vital Signs Temp Pulse Resp BP Pulse Ox Pulse Ox O2 Del Method 09/04/24 09:53 97.7 F 88 19 148/83 H 92 Room Air 09/04/24 01:22 97.3 F L 88 18 130/83 93 Room Air 09/04/24 01:00 93 O2 Del Method 09/04/24 09:53 09/04/24 01:22 09/04/24 01:00 Room Air Laboratory Results Sodium 147, potassium 3.4, BUN 12, creatinine 0.89. PG Care Time/CCT Total # of Minutes Spent Total Time Spent with Patient: Total time spent is greater than 50% in coordination of care (as documented) at patient's floor/unit and/or counseling patient: Coding Level of Care Code 25512 SUB INP/OBS CARE 235MIN Diagnoses SVT (supraventricular tachycardia) I47.10 Bipolar 1 disorder F31.9
[2024-09-04] MEDS: AMIODARONE 200 MG TAB PO SCH (12:45)
--- NOTE | 2024-09-04 12:51 | Hospitalist Progress Note ---
Date of Service September 04, 2024 Assessment & Plan (1) SAMEER (acute kidney injury): Plan: Mild on admission. Creatinine was 1.3 and has now normalized. Monitor intake and output (2) Encephalopathy: Plan: Combined acute metabolic encephalopathy related to UTI, electrolyte imbalance and psych issues. Appreciate psychiatry consultation and recommendations. Continue supportive care. 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 She was treated with intravenous Rocephin for 6 days. Antibiotics have been discontinued. (4) SVT (supraventricular tachycardia): Plan: Paroxysmal. Appreciate cardiology consultation and recommendations. They have opted to switch the patient to amiodarone. Continue telemetry. Metoprolol and diltiazem have been discontinued due to apparent ineffectiveness. Telemetry (5) [place] adverse reaction: Plan: Toxicity ruled out. [place] level is 1.1. 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 Sodium elevated to 153 on admission and still remains elevated but improved. Appreciate nephrology consultation and recommendations. She is on IV fluids at a significant rate. Monitor intake and output. Serial labs (7) Hypokalemia: Plan: Corrected with parenteral replacement while NPO. Serial labs (8) Disruptive behavior disorder: Plan: Appreciate psychiatry consultation and recommendations. Unfortunately she required multiple doses of IM Zyprexa today, September 04, for her disruptive behavior. Bilateral wrist restraints have been ordered. Plan To be determined Admission and Anticipated Discharge Date Admission Date: August 29, 2024 Subjective Unfortunately, the patient required multiple doses of IM Zyprexa this morning, September 04, to control her aggressive behavior. Psychiatry was notified. She is asleep at the time of my rounds. Case discussed with cardiology. She had another episode of SVT and they have decided to start amiodarone therapy. Continue telemetry. Review of Systems 2 Review of Systems: Sedated from multiple doses of IM Zyprexa and unable to answer accurately any questions regarding review of systems Physical Exam 2 Physical Exam: General-asleep and sedated. No fever HEENT-head atraumatic and normocephalic Neck-no lymphadenopathy or thyromegaly, trachea midline Chest-clear to auscultation anteriorly. No rales, wheezing or rhonchi Cardiac-regular rate and rhythm, normal S1 and S2 Abdomen-normal bowel sounds, no hepatosplenomegaly Extremities-no cyanosis, clubbing, or edema Neuro-asleep. Cannot assess Psych-asleep. Cannot assess Results & Data Results & Data Vital Signs (Past 12 Hours) Vital Signs Temp Pulse Resp BP BP Pulse Ox Pulse Ox 09/04/24 12:32 36.5 C 97 H 18 138/93 97 09/04/24 09:53 36.5 C 88 19 148/83 H 92 09/04/24 01:22 36.3 C L 88 18 130/83 93 09/04/24 01:00 93 O2 Del Method O2 Del Method 09/04/24 12:32 Room Air 09/04/24 09:53 Room Air 09/04/24 01:22 Room Air 09/04/24 01:00 Room Air Laboratory Results 09/03/24 02:15 09/04/24 05:43 PG Care Time/CCT Total # of Minutes Spent Total Time Spent with Patient: Total time spent is greater than 50% in coordination of care (as documented) at patient's floor/unit and/or counseling patient: Coding Level of Care Code 99953 SUB INP/OBS CARE 3/50MIN Diagnoses SAMEER (acute kidney injury) N17.9 Encephalopathy G93.40 UTI (urinary tract infection) N39.0 SVT (supraventricular tachycardia) I47.10 [place] adverse reaction T43.595A Nephrogenic diabetes insipidus N25.1 Hypokalemia E87.6 Disruptive behavior disorder F91.9
[2024-09-05] MEDS: OLANZapine 10 MG/2.1 ML SDV IM STA (00:55)
[2024-09-05] MEDS: LEVOTHYROXINE SODIUM 125 MCG TABLET PO SCH (04:54)
[2024-09-05] MEDS ORDERED: LEVOTHYROXINE SODIUM 112 MCG TABLET PO SCH (06:30)
[2024-09-05 08:37] LABS: BUN Creatinine Ratio 10.7 (10-20); Calcium 10.4 mg/dl (8.6-10.3)
--- NOTE | 2024-09-05 08:59 | Nephrology Progress Note ---
Date of Service September 05, 2024 Assessment & Plan (1) Hypernatremia: Plan: * No response to DDAVP. 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 Serum sodium is again trending upward. * Calculated free water deficit is 3 L * Will start D5W at 125 cc/h * Will start chlorthalidone 25 mg daily to promote proximal tubular absorption of free water and reduce urine output * BMP this afternoon, monitor I&O * Provide free access to water and encourage oral hydration (2) [place] adverse reaction: (3) Bipolar 1 disorder: Admission and Anticipated Discharge Date Admission Date: August 29, 2024 Subjective Miss Trujillo was evaluated in her hospital room this morning. She was alert but somewhat agitated. She had spilled her breakfast this morning. Miss Trujillo complained of thirst. She has a Gardner catheter in place draining clear yellow urine. Review of Systems Constitutional: no fever Eyes: no problem reported Ear, Nose, Mouth, Throat: no problem reported Respiratory: no cough and no dyspnea Cardiovascular: no chest pain Gastrointestinal: no abdominal pain, no nausea, no vomiting and no diarrhea/loose stools Integumentary: no problem reported Physical Exam Constitutional: not in distress Eyes: PERRL, conjunctivae normal, anicteric sclerae ENMT: external ear and nose normal, oropharynx normal Neck: trachea midline, no thyromegaly Respiratory: normal respiratory effort, lungs clear to auscultation Cardiovascular: RRR, no murmur, no edema Gastrointestinal (Abdomen): normal bowel sounds, soft, nontender, no hepatosplenomegaly Musculoskeletal: Extremities: no cyanosis and no clubbing Skin: no rashes, warm and dry Results & Data Vital Signs (Past 12 Hours) Vital Signs Temp Pulse Pulse Resp BP BP Pulse Ox 09/05/24 07:35 36.6 C 95 H 20 127/80 99 09/05/24 07:30 09/05/24 07:00 104 H 09/05/24 02:37 36.7 C 96 H 18 146/91 H 98 09/04/24 22:25 36.7 C 100 H 18 145/90 H 95 09/04/24 22:21 99 H O2 Del Method 09/05/24 07:35 Room Air 09/05/24 07:30 Room Air 09/05/24 07:00 09/05/24 02:37 Room Air 09/04/24 22:25 Room Air 09/04/24 22:21 Laboratory Results Laboratory Results - last 24 hr 09/05/24 07:32 Sodium 152 H Potassium 4.0 Chloride 118 H Carbon Dioxide 27 Anion Gap 7 BUN 11 Creatinine 1.03 Est Cr Clr Drug Dosing 63.0 eGFR 62.25 BUN/Creatinine Ratio 10.7 Glucose 85 Calcium 10.4 H Laboratory Results WBC 10.18 K/ul (4.8-10.8) 09/03/24 02:15 RBC 4.68 M/uL (4.20-5.40) 09/03/24 02:15 Hgb 13.4 g/dl (12.0-16.0) 09/03/24 02:15 Hct 41.5 % (37.0-47.0) 09/03/24 02:15 MCV 88.7 fL (80.0-100.0) 09/03/24 02:15 MCH 28.6 pg (25.0-34.0) 09/03/24 02:15 MCHC 32.3 g/dL (32.0-36.0) 09/03/24 02:15 RDW Std Deviation 40.9 fL (36.4-46.3) 09/03/24 02:15 RDW Coeff of [place] 12.6 % (11.5-14.5) 09/03/24 02:15 Plt Count 150 K/uL (130-400) 09/03/24 02:15 MPV 11.3 fL (9.4-12.4) 09/03/24 02:15 Immature Gran % (Auto) 0.3 % 09/03/24 02:15 Neut % (Auto) 83.7 % 09/03/24 02:15 Lymph % (Auto) 10.0 % 09/03/24 02:15 [place] % (Auto) 4.6 % 09/03/24 02:15 Eos % (Auto) 1.0 % 09/03/24 02:15 Baso % (Auto) 0.4 % 09/03/24 02:15 Neut # (Auto) 8.52 K/uL (1.40-6.50) H 09/03/24 02:15 Lymph # (Auto) 1.02 K/uL (1.20-3.40) L 09/03/24 02:15 [place] # (Auto) 0.47 K/uL (0.11-0.59) 09/03/24 02:15 Eos # (Auto) 0.10 K/uL (0.00-0.50) 09/03/24 02:15 Baso # (Auto) 0.04 K/uL (0.00-0.20) 09/03/24 02:15 Immature Gran # (Auto) 0.03 K/uL (0.01-0.20) 09/03/24 02:15 RBC Morphology Unremarkable 08/29/24 18:40 Polychromasia 1+ 08/30/24 04:27 Echinocytes 1+ 08/30/24 04:27 PT 11.6 Seconds (9.0-12.0) 08/29/24 18:40 INR 1.1 (0.9-1.1) 08/29/24 18:40 VBG pH 7.38 (7.36-7.41) 08/30/24 04:27 VBG pCO2 24 mmHg (38-50) L 08/30/24 04:27 VBG pO2 76 mmHg 08/30/24 04:27 VBG HCO3 14 mmol/L 08/30/24 04:27 VBG O2 Saturation 95.1 % 08/30/24 04:27 VBG Base Excess -9.0 mEq/L 08/30/24 04:27 Sodium 152 mmol/L (136-145) H 09/05/24 07:32 Potassium 4.0 mmol/L (3.5-5.1) 09/05/24 07:32 Chloride 118 mmol/L (98-107) H 09/05/24 07:32 Carbon Dioxide 27 mmol/L (21-32) 09/05/24 07:32 Anion Gap 7 (3-11) 09/05/24 07:32 BUN 11 mg/dl (6-23) 09/05/24 07:32 Creatinine 1.03 mg/dl (0.6-1.2) 09/05/24 07:32 Est Cr Clr Drug Dosing 63.0 ml/min 09/05/24 07:32 eGFR 62.25 09/05/24 07:32 BUN/Creatinine Ratio 10.7 (10-20) 09/05/24 07:32 Glucose 85 mg/dl (70-99(Fasting)) 09/05/24 07:32 POC Glucose 72 mg/dl (70-99) 09/04/24 00:54 Estimat Average Glucose 91 mg/dl 08/30/24 04:27 Hemoglobin A1c 4.8 % (4.5-5.6) 08/30/24 04:27 Osmolality 320 mOsm/kg (280-300) H 09/02/24 07:21 Lactate 1.8 mmol/L (0.4-2.0) 09/02/24 13:04 Calcium 10.4 mg/dl (8.6-10.3) H 09/05/24 07:32 Phosphorus 3.0 mg/dl (2.5-4.9) 09/03/24 02:15 Magnesium 2.4 mg/dl (1.7-2.4) 09/02/24 13:04 Total Bilirubin 0.5 mg/dl (0.2-1.0) 09/01/24 05:10 Direct Bilirubin 0.1 mg/dl (0-0.2) 08/29/24 18:40 AST 19 U/L (13-39) 09/01/24 05:10 ALT 13 U/L (7-52) 09/01/24 05:10 Alkaline Phosphatase 127 U/L (34-104) H 09/01/24 05:10 Ammonia 19.0 umol/L (18-72) 08/30/24 06:33 Troponin I High Sens 23.2 pg/ml (0-14) H 08/30/24 04:27 Total Protein 6.3 gm/dl (6.0-8.3) 09/01/24 05:10 Albumin 3.3 gm/dl (3.4-5.0) L 09/03/24 02:15 Globulin 2.6 gm/dl (2.5-4.0) 09/01/24 05:10 Albumin/Globulin Ratio 1.4 (0.9-2) 09/01/24 05:10 Triglycerides 105 mg/dl (0-150) 08/30/24 04:27 Cholesterol 136 mg/dl (0-200) 08/30/24 04:27 LDL Cholesterol, Calc 69 mg/dl 08/30/24 04:27 VLDL Cholesterol, Calc 21 mg/dl (0-30) 08/30/24 04:27 HDL Cholesterol 46 mg/dl 08/30/24 04:27 Cholesterol/HDL Ratio 3.0 (0-5) 08/30/24 04:27 Procalcitonin 0.08 ng/ml (0-0.5) 08/29/24 18:40 TSH 0.191 uIu/ml (0.300-4.500) L 09/02/24 13:04 Free T4 0.76 ng/dl (0.61-1.60) 09/02/24 13:04 Free T3 2.83 pg/ml (2.3-4.2) 09/01/24 10:32 Random Cortisol > 60.00 mcg/dl 08/30/24 04:27 Urine Color Yellow 08/29/24 19:36 Urine Appearance Clear (Clear) 08/29/24 19:36 Urine pH 6.5 (4.5-7.5) 08/29/24 19:36 Ur Specific [place] 1.007 (1.000-1.030) 08/29/24 19:36 Urine Protein Trace (Negative) H 08/29/24 19:36 Urine Glucose (UA) Negative (Negative) 08/29/24 19:36 Urine Ketones 1+ (Negative) H 08/29/24 19:36 Urine Blood Negative (Negative) 08/29/24 19:36 Urine Nitrite Positive (Negative) A 08/29/24 19:36 Urine Bilirubin Negative (Negative) 08/29/24 19:36 Urine Urobilinogen Negative (Negative) 08/29/24 19:36 Ur Leukocyte Esterase Trace (Negative) H 08/29/24 19:36 Urine WBC (Auto) 0-5 /hpf (0-5) 08/29/24 19:36 Urine RBC (Auto) 0-2 /hpf (0-2) 08/29/24 19:36 U Hyaline Cast (Auto) 3-5 /lpf (0-2) H 08/29/24 19:36 U Epithel Cells (Auto) 0-2 /hpf (0-2) 08/29/24 19:36 Urine Bacteria (Auto) 3+ (None Seen) H 08/29/24 19:36 Urine Osmolality 142 mOsm/kg (500-800) L 09/02/24 04:36 Urine Sodium 31 mmol/L 08/29/24 Unknown Urine Potassium 8.5 mmol/L 08/29/24 Unknown Urine Chloride 30 mmol/L 08/29/24 Unknown Nasal Screen MRSA (PCR) Negative (Negative) 09/02/24 12:00 Salicylates < 3.0 mg/dl (3.0-30) L 08/29/24 22:49 Urine Opiates Screen Neg (Neg) 08/29/24 19:36 Ur Methadone, Qual Neg (Neg) 08/29/24 19:36 Urine Fentanyl Screen Neg (Neg) 08/29/24 19:36 Acetaminophen < 3 ug/ml (10-30) L 08/29/24 22:49 Urine Barbiturates Neg (Neg) 08/29/24 19:36 Lamotrigine 0.8 mcg/mL (2.5-15.0) L 08/29/24 22:49 Topiramate < 0.5 mcg/mL (see note) L 08/29/24 22:49 Ur Phencyclidine (PCP) Neg (Neg) 08/29/24 19:36 U Amphetamin/Meth Scrn Neg (Neg) 08/29/24 19:36 MDMA (Ecstasy) Screen Neg (Neg) 08/29/24 19:36 U Benzodiazepines Scrn Neg (Neg) 08/29/24 19:36 [place] 1.1 mmol/L (0.6-1.2) 08/29/24 18:40 Ur Cocaine Metabolite Neg (Neg) 08/29/24 19:36 U Marijuana (THC) Screen Pos (Neg) H 08/29/24 19:36 U Marijuana THC Carboxy 5 ng/mL (<5) H 08/29/24 19:36 Drug Screen Comment SEE NOTE 08/29/24 19:36 Ethyl Alcohol mg/dL < 10.0 mg/dl (<10.0) 08/29/24 21:50 Adenovirus (PCR) Not Detected (NotDetected) 08/29/24 18:40 B. pertussis DNA (PCR) Not Detected (NotDetected) 08/29/24 18:40 B.parapertussis DNA PCR Not Detected (NotDetected) 08/29/24 18:40 Lyme Disease Screen Negative (Negative) 08/29/24 18:40 C. pneumoniae DNA (PCR) Not Detected (NotDetected) 08/29/24 18:40 Coronavirus OC43 (PCR) Not Detected (NotDetected) 08/29/24 18:40 Coronavirus HKU1 (PCR) Not Detected (NotDetected) 08/29/24 18:40 Coronavirus 229E (PCR) Not Detected (NotDetected) 08/29/24 18:40 SARS-CoV-2 (PCR) Not Detected (NotDetected) 08/29/24 18:40 Coronavirus NL63 (PCR) Not Detected (NotDetected) 08/29/24 18:40 Human Metapneumovir PCR Not Detected (NotDetected) 08/29/24 18:40 Influenza Type A (PCR) Not Detected (NotDetected) 08/29/24 18:40 Influenza Type B (PCR) Not Detected (NotDetected) 08/29/24 18:40 M. pneumoniae (PCR) Not Detected (NotDetected) 08/29/24 18:40 Parainfluenza 1 (PCR) Not Detected (NotDetected) 08/29/24 18:40 Parainfluenza 2 (PCR) Not Detected (NotDetected) 08/29/24 18:40 Parainfluenza 3 (PCR) Not Detected (NotDetected) 08/29/24 18:40 Parainfluenza 4 (PCR) Not Detected (NotDetected) 08/29/24 18:40 RSV (PCR) Not Detected (NotDetected) 08/29/24 18:40 Entero/Rhino (PCR) Not Detected (NotDetected) 08/29/24 18:40 Impressions Chest X-Ray 08/29/24 18:34 EXAM: Portable AP chest radiograph TECHNIQUE: AP portable radiograph of the chest was obtained. INDICATION: Shortness of breath. Concern for sepsis Comparison: Chest radiograph December 29, 2022 FINDINGS: LINES and TUBES: None CARDIOVASCULAR: Cardiac silhouette is stably and mildly enlarged in size. LUNGS/PLEURA: No focal consolidation identified. No significant pleural fluid. No discernible pneumothorax. OSSEOUS/OTHER: No displaced acute osseous process identified. IMPRESSION: No radiographic evidence of acute cardiopulmonary process. Electronically signed by Neftaly Sunshine 08-29-2024 7:[address] 08/29/24 18:34 Exam: CT scan of the head without contrast only: Reason for exam: Altered mental status COMPARISON: 10/09/2021. FINDINGS: Study is somewhat limited by motion however no definite evidence of intracranial mass, hemorrhage or edema is seen at this time. Ventricular size normal without midline shift or extra-axial blood/fluid collection. Mastoids remain well-aerated. Visualized paranasal sinuses remain well aerated. No acute process of the bony calvarium is identified. IMPRESSION: 1. Study limited by motion. 2. Within these limitations no gross evidence of acute intracranial process seen on unenhanced head CT study at this time. Electronically signed by Collin Mora 08-29-2024 7:04 PM PG Care Time/CCT Total # of Minutes Spent Total Time Spent with Patient: Total time spent is greater than 50% in coordination of care (as documented) at patient's floor/unit and/or counseling patient: Coding Level of Care Code 89863 SUB INP/OBS CARE 3/50MIN Diagnoses Hypernatremia E87.0 [place] adverse reaction T43.595A Bipolar 1 disorder F31.9
[2024-09-05] MEDS: OLANZAPINE 2.5 MG TAB PO SCH (10:24)
[2024-09-05] MEDS: DEXTROSE 5% 500 ML IV SCH (10:33)
[2024-09-05] MEDS: CHLORTHALIDONE 25 MG TAB PO SCH (11:16)
--- NOTE | 2024-09-05 13:55 | Hospitalist Progress Note ---
Date of Service September 05, 2024 Assessment & Plan (1) SAMEER (acute kidney injury): Plan: Mild on admission. Creatinine was 1.3 and has now normalized. Monitor intake and output (2) Encephalopathy: Plan: Combined acute metabolic encephalopathy and psychosis related to UTI, electrolyte imbalance and psych issues. Appreciate psychiatry consultation and recommendations. Continue supportive care. Avoid [employer] depressants if possible (3) UTI (urinary tract infection): Plan: Strep mitis and [place] isolated. She was treated with intravenous Rocephin for 6 days. Antibiotics have been discontinued. (4) SVT (supraventricular tachycardia): Plan: Paroxysmal. She had another episode of SVT again this morning, September 05. Appreciate cardiology consultation and recommendations. The patient was recently switched to amiodarone therapy. Continue telemetry. Metoprolol and diltiazem have been discontinued due to apparent ineffectiveness. (5) [place] adverse reaction: Plan: Toxicity ruled out. [place] level is 1.1. 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 Sodium elevated to 153 on admission. Appreciate nephrology consultation and recommendations. She had a trial of DDAVP which apparently had little effect. Nephrology has added chlorthalidone and she is back on hypotonic IV fluids. Monitor intake and output. Serial labs (7) Hypokalemia: Plan: Corrected with parenteral and oral replacement. Serial labs (8) Disruptive behavior disorder: Plan: Appreciate psychiatry consultation and recommendations. Low-dose oral Zyprexa has been added twice daily. Will continue to use IM Zyprexa as needed. This seems to help. Occurrence of QT prolongation is a concern but has not yet occurred. Plan To be determined Admission and Anticipated Discharge Date Admission Date: August 29, 2024 Subjective Awake and alert at the time of my rounds but speaking nonsense. Nephrology entry noted. Trial of DDAVP had no effect. Chlorthalidone has been started and she is now on IV fluids. She had another episode of SVT this morning, September 05. Cardiology has been consulted and is managing the amiodarone. Continue telemetry Review of Systems 2 Review of Systems: Awake and alert. She appears to be confused at baseline. She will not answer any questions related to review of systems however Physical Exam 2 Physical Exam: General-alert. No fever, no chills HEENT-head atraumatic and normocephalic, pupils equal and reactive to light, extraocular muscles intact Neck-no lymphadenopathy or thyromegaly, trachea midline Chest-clear to auscultation. No rales, wheezing or rhonchi Cardiac-regular rate and rhythm, normal S1 and S2 Abdomen-normal bowel sounds, no hepatosplenomegaly Extremities-no cyanosis, clubbing, or edema Neuro-cranial nerves II through XII intact, motor and sensory function within normal limits, strength symmetrical, no focal deficits Psych-alert but disoriented. Cannot assess Results & Data Results & Data Vital Signs (Past 12 Hours) Vital Signs Temp Pulse Pulse Resp BP Pulse Ox O2 Del Method 09/05/24 10:18 170 H 09/05/24 07:35 36.6 C 95 H 20 127/80 99 Room Air 09/05/24 07:30 Room Air 09/05/24 07:00 104 H 09/05/24 02:37 36.7 C 96 H 18 146/91 H 98 Room Air Laboratory Results 09/03/24 02:15 09/05/24 07:32 PG Care Time/CCT Total # of Minutes Spent Total Time Spent with Patient: Total time spent is greater than 50% in coordination of care (as documented) at patient's floor/unit and/or counseling patient: Coding Level of Care Code 53405 SUB INP/OBS CARE 3/50MIN Diagnoses SAMEER (acute kidney injury) N17.9 Encephalopathy G93.40 UTI (urinary tract infection) N39.0 SVT (supraventricular tachycardia) I47.10 [place] adverse reaction T43.595A Nephrogenic diabetes insipidus N25.1 Hypokalemia E87.6 Disruptive behavior disorder F91.9
--- NOTE | 2024-09-05 14:15 | Psychiatric Progress Note ---
Date of Service September 05, 2024 Impression / Recommendations Impression Delirium due to Diabetes Insipidus (secondary to lithium). By history, Bipolar 1 Disorder. History of tardive dyskinesia (possibly from Seroquel in the past). Appears she's had past trials of Depakote and has been on concurrent lamictal. Mild Cognitive Impairment. Overall, I spent a total of 45 minutes with this case including review of chart records, review of labwork, review of EKG QTc, direct evaluation of the patient at bedside, counseling the patient, discussion of the patient with the Nurse and with the hospitalist provider, discussion with the psychiatric liaison during clinical rounds and documentation in the electronic health record. (1) Delirium: (2) [place] adverse reaction: (3) Nephrogenic diabetes insipidus: (4) Hypernatremia: (5) Bipolar 1 disorder: Plan 09/05/24: Recommend tapering Clonazepam to 0.25mg tonight 09/05/24 as benzodiazepines may worsen confusion. Hold Clonazepam dose on 09/06/24. Monitor for benzodiazepine withdrawals. Continue Lamictal 150mg bid, Olanzapine 2.5mg bid. Continue prn Olanzapine at current dose. Psychiatry will follow up 09/08/24. 09/02/2024: -olanzapine 2.5mg or 5mg daily prn po or IM could be used if agitation leading to unsafe behaviors or aggression develops; otherwise try to avoid given hx of tardive dyskinesia -No concerns for self-harm risk at this time as she denied SI 09/01/2024: -Once she is able to swallow pills/or tolerate crushed in food would emphasize restarting: * lamictal 150mg BID (if not restarted by 09/03/2024 then titration will have to restart at dose of lamictal 25mg HS daily) * Consider melatonin 3mg qhs * Klonopin 0.5mg HS with goal of tapering if encephalopathy persists -Once delirium improves can then restart psych meds including: * sertraline 50mg daily (only if lamictal remains at therapeutic dose of 150mg BID, if retitration required then continue to hold sertraline to prevent setting off dena) * clonidine 0.1mg HS * gabapentin 150mg BID -Would discontinue prior to admission * Doxepin * lithium * topiramate -Continue medical workup to rule out and treat any underlying causes contributing to potential delirium, avoid or limit use of deliriogenic medications (benzodiazepines, opioids, anticholinergics) -Continue with delirium prevention measures: raising blinds during the day, closing at night, frequent re-orientation, contact with family/friends, explaining procedures/nursing care measures prior to physical contact, correct any hearing and visual impairments -Psychiatry will continue to follow, please reach out if acute concerns arise for self-harm risk (SI), psychosis or dena Interval History Identifying Information Ana Trujillo is a 59 yo woman with a history of Bipolar 1 Affective disorder (confirmed past episodes of dena per psych admission on [facility] in 2019), CKD, Prediabetes, Anxiety, Tardive Dyskinesia, OA, chronic back pain, scoliosis, anemia, Hypothyroidism, Hyperparathyroidism, Raynaud's, Restless leg, GERD and suspected mild neurocognitive impairment admitted for abrupt onset of confusion. Psychiatry consulted for recommendations for possible lithium toxicity and medication management for bipolar disorder/when to restart psychiatric medications. Chief Complaint "Who are you?". Subjective Subjective Patient was seen & assessed and interval progress reviewed with nursing staff. Dr Cox's evaluation notes were reviewed. Collateral obtained from the unit RN. Pt was admitted for abrupt onset confusion with no known recent stressors or inciting events except recent initiation of Zepbound. On admission she was found to have cardiac changes, SAMEER, significant hypernatremia, elevated WBC, suspected UTI, no evidence for acute intracranial abnormalities on CT imaging, positive for cannabis and lithium level of 1.1 (close to trough level as done at ~7pm a few hours prior to HS dose). Differential diagnoses include encephalopathy (fluctuating between hyperactive and hypoactive delirium) with lithium-induced diabetes insipidus considered the most likely cause for delirium. Given her history of recent mild cognitive impairment it's likely that delirium may take longer to resolve. Interval History: She is more alert, overall. At interview, she was tangential, pressured and was making jokes throughout. She remains disoriented to time, chitra ce and person (called her boyfriend by the wrong name). Still in restraints and received olanzapine 2.5mg this morning due to bouts of agitation. Per RN, has been alert today. She had a run of Afib this morning (now on amiodarone). Meds: Olanzapine 2.5mg bid + prn (last prn given this morning), Lamictal 150mg po bid and Klonopin 0.5mg qhs. Physical Exam Psychiatric Orientation: alert and cooperative Not oriented to place, time or person. Apperance: appropriately dressed and appropriately groomed Eye Contact: + fair eye contact In restraints. Mild restlessness. Affect: + labile affect, + irritable affect and mood congruent with affect Mood: + irritable mood Thought Process: + looseness of associations and + incoherent thought process Tangential. Could not answer most questions directly. No specific delusions, paranoia, suicidal or homicidal ideation elicited. None elicited None elicited None elicited Mis-named her boyfriend x 3. She could spell [place] forwards, but only "HT" ba ckwards. Estimated Intelligence: average estimated intelligence Insight: + severely impaired insight Judgment: + severely impaired judgement Vital Signs (Past 24 Hours) Last Vital Signs Temp 36.6 C 09/05/24 07:35 Pulse 170 H 09/05/24 10:18 Resp 20 09/05/24 07:35 BP 127/80 09/05/24 07:35 Pulse Ox 99 09/05/24 07:35 O2 Del Method Room Air 09/05/24 07:35 O2 Flow Rate 2 09/03/24 04:30 Results & Data ([facility]) Laboratory Results Laboratory Results - last 24 hr 09/05/24 07:32 Sodium 152 H Potassium 4.0 Chloride 118 H Carbon Dioxide 27 Anion Gap 7 BUN 11 Creatinine 1.03 Est Cr Clr Drug Dosing 63.0 eGFR 62.25 BUN/Creatinine Ratio 10.7 Glucose 85 Calcium 10.4 H Current Inpatient Medications Current Inpatient Medications: Current Inpatient Medications Acetaminophen (Acetaminophen 325 Mg Tab) 650 mg PO Q4H PRN PRN Reason: Pain Stop: 09/30/24 16:11 Last Admin: 08/31/24 16:57 Dose: 650 mg Amantadine HCl (Amantadine Hcl 100 Mg Capsule) 100 mg PO BID [facility] Stop: 10/01/24 09:44 Last Admin: 09/05/24 07:35 Dose: 100 mg Amiodarone HCl (Amiodarone 200 Mg Tab) 200 mg PO QAM SYLVIE Stop: 10/04/24 12:29 Last Admin: 09/05/24 07:34 Dose: 200 mg Carbidopa/Levodopa (Carbidopa/Levodopa 50/200mg Ext Rel Tab) 1 tab PO TID SYLVIE Stop: 10/01/24 13:59 Last Admin: 09/05/24 07:32 Dose: 1 tab Chlorthalidone (Chlorthalidone 25 Mg Tab) 25 mg PO QAM SYLVIE Stop: 10/05/24 09:59 Last Admin: 09/05/24 11:16 Dose: 25 mg Clonazepam (Clonazepam 0.5 Mg Tab) 0.5 mg PO HS SYLVIE Stop: 10/03/24 20:59 Last Admin: 09/04/24 20:12 Dose: 0.5 mg Enoxaparin Sodium (Enoxaparin Inj 40 Mg/0.4 Ml Syr) 40 mg SQ Q24H SYLVIE Stop: 09/28/24 21:29 Last Admin: 09/04/24 21:10 Dose: 40 mg Dextrose (D5w) 500 mls @ 125 mls/hr IV .Q4H SYLVIE Stop: 09/06/24 09:59 Last Admin: 09/05/24 10:33 Dose: 125 mls/hr Lamotrigine (Lamotrigine 100 Mg Tab) 150 mg PO BID SYLVIE; Protocol Stop: 10/03/24 20:59 Last Admin: 09/05/24 07:32 Dose: 150 mg Levothyroxine Sodium (Levothyroxine Sodium 112 Mcg Tablet) 112 mcg PO DAILYBB SYLVIE Stop: 10/06/24 06:29 Olanzapine (Olanzapine 10 Mg/2.1 Ml Sdv) 5 mg IM Q1H PRN; Protocol PRN Reason: Agitation Stop: 10/03/24 12:00 Last Admin: 09/05/24 07:04 Dose: 5 mg Olanzapine (Olanzapine 2.5 Mg Tab) 2.5 mg PO BID SYLVIE Stop: 10/05/24 08:59 Last Admin: 09/05/24 10:24 Dose: 2.5 mg Pantoprazole Sodium (Pantoprazole 40 Mg Tab) 40 mg PO BID SYLVIE Stop: 09/30/24 20:59 Last Admin: 09/05/24 07:35 Dose: 40 mg Potassium Chloride (Potassium Chloride Crtab 20 Meq Tabcr) 20 meq PO QAM SYLVIE Stop: 10/04/24 10:44 Last Admin: 09/05/24 07:44 Dose: 20 meq
[2024-09-05] MEDS: POLYETHYLENE (MIRALAX) 17 GM PACK PO SCH (16:15)
[2024-09-05 16:33] LABS: Anion Gap 6 (3-11); BUN Creatinine Ratio 9.8 (10-20); Blood Urea Nitrogen 10 mg/dl (6-23); Calcium 9.7 mg/dl (8.6-10.3); Carbon Dioxide 26 mmol/L (21-32); Chloride 108 mmol/L (98-107); Creatinine Clr Calc Pharmacy 63.6 ml/min; Glucose 117 mg/dl (70-99(Fasting)); Sodium 140 mmol/L (136-145)
[2024-09-05] MEDS: DOCUSATE SODIUM 100 MG CAP PO SCH (20:56)
[2024-09-06] MEDS: LEVOTHYROXINE SODIUM 112 MCG TABLET PO SCH (05:57)
[2024-09-06 08:24] LABS: BUN Creatinine Ratio 11.5 (10-20)
--- NOTE | 2024-09-06 09:28 | Nephrology Progress Note ---
Date of Service September 06, 2024 Assessment & Plan (1) Hypernatremia: Plan: * No response to DDAVP. Patient likely has nephrogenic DI related to lithium therapy * Patient remains polyuric (UO ~ 8L yesterday). Serum sodium 143 mmol/L * Order placed to provide free access to water * Change chlorthalidone to HCTZ 25 mg BID to promote proximal tubular absorption of free water and reduce urine output * If potassium trends down w/ thiazide diuretic, will add amiloride * BMP this afternoon, monitor I&O (2) [place] adverse reaction: (3) Bipolar 1 disorder: Admission and Anticipated Discharge Date Admission Date: August 29, 2024 Subjective Miss Trujillo was evaluated in her hospital room this morning. She remains somewhat agitated. Gardner catheter is in place draining clear yellow urine. Review of Systems Constitutional: no fever Eyes: no problem reported Ear, Nose, Mouth, Throat: no problem reported Respiratory: no cough and no dyspnea Cardiovascular: no chest pain Gastrointestinal: no abdominal pain, no nausea, no vomiting and no diarrhea/loose stools Integumentary: no problem reported Physical Exam Constitutional: not in distress Eyes: PERRL, conjunctivae normal, anicteric sclerae ENMT: external ear and nose normal, oropharynx normal Neck: trachea midline, no thyromegaly Respiratory: normal respiratory effort, lungs clear to auscultation Cardiovascular: RRR, no murmur, no edema Gastrointestinal (Abdomen): normal bowel sounds, soft, nontender, no hepatosplenomegaly Musculoskeletal: Extremities: no cyanosis and no clubbing Skin: no rashes, warm and dry Results & Data Vital Signs (Past 12 Hours) Vital Signs Temp Pulse Pulse Resp BP Pulse Ox O2 Del Method 09/06/24 07:48 Room Air 09/06/24 07:43 97 H 09/06/24 07:36 36.5 C 76 18 135/90 96 Room Air 09/06/24 03:07 36.6 C 100 H 18 130/80 94 Room Air 09/05/24 23:08 36.7 C 107 H 20 137/81 95 Room Air 09/05/24 21:52 106 H 09/05/24 21:44 Room Air Laboratory Results Abnormal Lab Results 09/05/24 09/06/24 09/06/24 15:45 06:33 07:38 Sodium 140 D Cancelled 143 Potassium TNP Cancelled 5.0 D Chloride 108 H Cancelled 110 H Carbon Dioxide 26 Cancelled 28 Anion Gap 6 Cancelled 5 BUN 10 Cancelled 14 Creatinine 1.02 Cancelled 1.22 H Est Cr Clr Drug Dosing 63.6 Cancelled 53.0 eGFR 62.98 Cancelled 50.80 BUN/Creatinine Ratio 9.8 L Cancelled 11.5 Glucose 117 H Cancelled 89 Calcium 9.7 Cancelled 10.0 PG Care Time/CCT Total # of Minutes Spent Total Time Spent with Patient: Total time spent is greater than 50% in coordination of care (as documented) at patient's floor/unit and/or counseling patient: Coding Level of Care Code 90292 SUB INP/OBS CARE 3/50MIN Diagnoses Hypernatremia E87.0 [place] adverse reaction T43.595A Bipolar 1 disorder F31.9
[2024-09-06] MEDS: hydroCHLOROthiazide 25 MG TAB PO SCH (10:21)
--- NOTE | 2024-09-06 13:04 | Hospitalist Progress Note ---
Date of Service September 06, 2024 Assessment & Plan (1) SAMEER (acute kidney injury): Plan: Mild on admission. Creatinine was 1.3 and has now normalized. Monitor intake and output (2) Encephalopathy: Plan: Combined acute metabolic encephalopathy and psychosis related to UTI, electrolyte imbalance and psych issues. Appreciate psychiatry consultation and recommendations. Continue supportive care. Avoid [employer] depressants if possible. Now resolved. She states she feels better since scheduled dosing of oral Zyprexa has been started (3) UTI (urinary tract infection): Plan: Strep mitis and Gardnerella isolated. She was treated with intravenous Rocephin for 6 days. Antibiotics have been discontinued. (4) SVT (supraventricular tachycardia): Plan: Paroxysmal. She had another episode of SVT again this morning, September 05. Appreciate cardiology consultation and recommendations. The patient was recently switched to amiodarone therapy. Continue telemetry. Metoprolol and diltiazem have been discontinued due to apparent ineffectiveness. (5) [place] adverse reaction: Plan: Toxicity ruled out. [place] level is 1.1. 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 Sodium elevated to 153 on admission. Appreciate nephrology consultation and recommendations. She had a trial of DDAVP which apparently had little effect. Nephrology has added chlorthalidone and she is back on hypotonic IV fluids. Monitor intake and output. Serial labs (7) Hypokalemia: Plan: Corrected with parenteral and oral replacement. Serial labs (8) Disruptive behavior disorder: Plan: Appreciate psychiatry consultation and recommendations. Low-dose oral Zyprexa has been added twice daily and appears to have helped considerably. Restraints have been discontinued. (9) Prolonged QT interval: Plan: Seen on EKG done today, September 06. So far no dysrhythmia on telemetry. Unfortunately, this cannot be prevented due to the medications that she is currently requiring. Will follow Plan Hopeful discharge to home within the next day or 2 Admission and Anticipated Discharge Date Admission Date: August 29, 2024 Subjective Alert and oriented and pleasant this morning. She states she feels better since oral Zyprexa has been started. EKG was repeated and reveals prolonged QT interval but this cannot be helped and appears to be well-tolerated thus far. Will remove Gardner catheter. Sodium is down to 143. Appreciate nephrology assistance. Hopefully she can go home within next day or 2 if she remains stable. Review of Systems 2 Review of Systems: Constitutionalno fever or chills ENTno blurred vision, no double vision, no epistaxis, no sore throat Respiratoryno cough, no wheezing, no shortness of breath Cardiacno palpitations, no chest pain, no syncope [place] nausea, vomiting, diarrhea, melena, hematochezia GUno urinary retention, no urinary incontinence, no dysuria, no hematuria Musculoskeletalno joint pain, no muscle tenderness Skinno bruising, no rashes, no pruritus Neurono isolated weakness, no paresthesia, no weakness Psychno depression, no anxiety Physical Exam 2 Physical Exam: General-alert. No fever, no chills HEENT-head atraumatic and normocephalic, pupils equal and reactive to light, extraocular muscles intact Neck-no lymphadenopathy or thyromegaly, trachea midline Chest-clear to auscultation. No rales, wheezing or rhonchi Cardiac-regular rate and rhythm, normal S1 and S2 Abdomen-normal bowel sounds, no hepatosplenomegaly Extremities-no cyanosis, clubbing, or edema Neuro-cranial nerves II through XII intact, motor and sensory function within normal limits, strength symmetrical, no focal deficits Psych-alert but disoriented. Cannot assess Results & Data Results & Data Vital Signs (Past 12 Hours) Vital Signs Temp Pulse Pulse Resp BP Pulse Ox O2 Del Method 09/06/24 11:27 36.8 C 99 H 18 115/83 94 Room Air 09/06/24 07:48 Room Air 09/06/24 07:43 97 H 09/06/24 07:36 36.5 C 76 18 135/90 96 Room Air 09/06/24 03:07 36.6 C 100 H 18 130/80 94 Room Air Laboratory Results 09/03/24 02:15 09/06/24 07:38 PG Care Time/CCT Total # of Minutes Spent Total Time Spent with Patient: Total time spent is greater than 50% in coordination of care (as documented) at patient's floor/unit and/or counseling patient: Coding Level of Care Code 14279 SUB INP/OBS CARE 2/35MIN Diagnoses SAMEER (acute kidney injury) N17.9 Encephalopathy G93.40 UTI (urinary tract infection) N39.0 SVT (supraventricular tachycardia) I47.10 [place] adverse reaction T43.595A Nephrogenic diabetes insipidus N25.1 Hypokalemia E87.6 Disruptive behavior disorder F91.9 Prolonged QT interval R94.31
[2024-09-06 14:21] LABS: BUN Creatinine Ratio 11.7 (10-20); Calcium 9.9 mg/dl (8.6-10.3); Creatinine Clr Calc Pharmacy 50.6 ml/min; Potassium 4.3 mmol/L (3.5-5.1)
[2024-09-06 23:04] VITALS: RESP 16
[2024-09-07 06:59] LABS: BUN Creatinine Ratio 10.7 (10-20); Calcium 9.6 mg/dl (8.6-10.3); Potassium 3.4 mmol/L (3.5-5.1)
[2024-09-07 07:32] VITALS: TEMP 97.9
--- NOTE | 2024-09-07 08:52 | Nephrology Progress Note ---
Date of Service September 07, 2024 Assessment & Plan (1) Hypernatremia: Plan: * No response to DDAVP. Patient likely has nephrogenic DI related to lithium therapy * Patient remains polyuric (UO 5.4 L yesterday). Serum sodium 143 mmol/L * Order placed to provide free access to water * Will reduce HCTZ to 25 mg daily due to mild increase in Cr. HCTZ needed to promote proximal tubular absorption of free water and reduce urine output * If potassium continues to trend down w/ thiazide diuretic, will add amiloride * BMP this afternoon, monitor I&O * If discharge is planned, please have patient follow up w/ Dr. Min within 7-14 days of hospital discharge ([phone]) (2) [place] adverse reaction: (3) Bipolar 1 disorder: Admission and Anticipated Discharge Date Admission Date: August 29, 2024 Subjective Miss Trujillo was evaluated in her hospital room this morning. She was sitting up in a chair and indicated that she hopes to return home soon. She voiced no medical concerns. Review of Systems Constitutional: no fever Eyes: no problem reported Ear, Nose, Mouth, Throat: no problem reported Respiratory: no cough and no dyspnea Cardiovascular: no chest pain Gastrointestinal: no abdominal pain, no nausea, no vomiting and no diarrhea/loose stools Integumentary: no problem reported Physical Exam Constitutional: not in distress Eyes: PERRL, conjunctivae normal, anicteric sclerae ENMT: external ear and nose normal, oropharynx normal Neck: trachea midline, no thyromegaly Respiratory: normal respiratory effort, lungs clear to auscultation Cardiovascular: RRR, no murmur, no edema Gastrointestinal (Abdomen): normal bowel sounds, soft, nontender, no hepatosplenomegaly Musculoskeletal: Extremities: no cyanosis and no clubbing Skin: no rashes, warm and dry Results & Data Vital Signs (Past 12 Hours) Vital Signs Temp Pulse Pulse Resp BP Pulse Ox O2 Del Method 09/07/24 07:32 36.6 C 119 H 16 138/77 97 Room Air 09/07/24 03:53 36.3 C L 77 16 112/71 97 Room Air 09/06/24 23:03 36.5 C 88 16 119/84 92 Room Air 09/06/24 22:05 92 H Laboratory Results Laboratory Results - last 24 hr 09/06/24 09/06/24 09/07/24 13:49 Unknown 06:00 Sodium 142 143 Potassium 4.3 3.4 L D Chloride 110 H 106 Carbon Dioxide 25 30 Anion Gap 7 7 BUN 15 15 Creatinine 1.28 H 1.40 H Est Cr Clr Drug Dosing 50.6 46.0 eGFR 47.96 43.07 BUN/Creatinine Ratio 11.7 10.7 Glucose 112 H 84 Calcium 9.9 9.6 Urine Osmolality 170 L PG Care Time/CCT Total # of Minutes Spent Total Time Spent with Patient: Total time spent is greater than 50% in coordination of care (as documented) at patient's floor/unit and/or counseling patient: Coding Level of Care Code 64801 SUB INP/OBS CARE 3/50MIN Diagnoses Hypernatremia E87.0 [place] adverse reaction T43.595A Bipolar 1 disorder F31.9
[2024-09-07 11:34] VITALS: PULSE 69; O2SAT 96
--- NOTE | 2024-09-07 13:02 | Discharge Summary ---
Discharge Summary Date of Service September 07, 2024 Principal Dx & Hospital Course #1 = Principal Diagnosis (1) SAMEER (acute kidney injury): Mild on admission. Creatinine was 1.3 and has now normalized. Monitor intake and output (2) Encephalopathy: Combined acute metabolic encephalopathy and psychosis related to UTI, electrolyte imbalance and psych issues. Appreciate psychiatry consultation and recommendations. Continue supportive care. Avoid DIRECTOR OF EXHIBITS depressants if possible. Now resolved. She states she feels better since scheduled dosing of oral Zyprexa has been started (3) UTI (urinary tract infection): Strep mitis and Gardnerella isolated. She was treated with intravenous Rocephin for 6 days. Antibiotics have been discontinued. (4) SVT (supraventricular tachycardia): Paroxysmal. She had another episode of SVT again on the morning of September 05. Appreciate cardiology consultation and recommendations. The patient was recently switched to amiodarone therapy. Continue telemetry. Metoprolol and diltiazem have been discontinued due to apparent ineffectiveness. (5) Berry adverse reaction: Toxicity ruled out. Berry level is 1.1. 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 Sodium elevated to 153 on admission. Appreciate nephrology consulta tion and recommendations. She had a trial of DDAVP which apparently had little effect. Nephrology has added chlorthalidone and she was treated with hypotonic IV fluids. Sodium has now normalized monitor intake and output. Serial labs (7) Hypokalemia: Corrected with parenteral and oral replacement. Serial labs (8) Disruptive behavior disorder: Appreciate psychiatry consultation and recommendations. Low-dose oral Zyprexa has been added twice daily and appears to have helped considerably. Restraints have been discontinued. (9) Prolonged QT interval: Seen on EKG. unfortunately she requires certain medications to suppress SVT and to control her behavior which will prolong the QT interval. Fortunately the incidence of torsade de pointe is very low and hopefully she will tolerate these medications without incident. So far no dysrhythmia on telemetry. Plan Home today, September 07 Admission HPI Per Admitting Provider This is a 59-year-old female who lives at home alone. On the weekends her boyfriend often spends the weekend with her. This is a history obtained from the patient's brother at the bedside. The patient's brother called to check on her today she was confused on the telephone. The boyfriend was with her and recommended bring her to the ER. Patient was brought to the ER for further evaluation and treatment. The patient's brother last spoke with her Saturday and she was in her normal state of health. The patient does have a history of UTIs in the past per the brother. However the confusion is a new phenomenon. Most of the history obtained from the patient's brother and his girlfriend at the bedside who know the patient well. The patient is a very poor historian at this point with encephalopathy. The patient does take medical marijuana. She denies abusing that. No other controlled substances that the patient's brother is aware of. She does not drink alcohol per the patient's brother. In the ER she had a nonacute CT of the brain. She had a urinalysis which was questionable for UTI. While in the ER she went into SVT. She had to be chemically converted with 6 mg of IV adenosine. Approximately 20 minutes later she relapsed into SVT. She received 12 mg of IV adenosine. Converted to sinus rhythm with PACs and PVCs. Magnesium level reassuring. We are called admit the patient further evaluation and treatment. Berry level was 1.1. She is on multiple psychiatric medications with her bipolar disorder per the patient's brother. We are admitting the patient to the ICU overnight given the 2 episodes of SVT in such close proximity. We have spoken personally with the [facility] provider in the ICU Puneet olmstead. In addition we have spoken with cardiology on-call for consultation we have ordered an echocardiogram. We have ordered a stat TSH which is pending at the time of this dictation. She also received 2 L of IV fluid in the ER. We are starting her on lactated Ringer's at this time. In addition she received multiple doses of IV Ativan initially as well. Discharge Exam General-alert. No fever, no chills HEENT-head atraumatic and normocephalic, pupils equal and reactive to light, extraocular muscles intact Neck-no lymphadenopathy or thyromegaly, trachea midline Chest-clear to auscultation. No rales, wheezing or rhonchi Cardiac-regular rate and rhythm, normal S1 and S2 Abdomen-normal bowel sounds, no hepatosplenomegaly Extremities-no cyanosis, clubbing, or edema Neuro-cranial nerves II through XII intact, motor and sensory function within normal limits, strength symmetrical, no focal deficits Psych-alert but disoriented. Cannot assess Discharge Plan Discharge Items Patient Disposition: Home - Self-Care Reason For Visit: AMS Discharge Diagnosis: Berry induced diabetes insipidus, acute psychosis, strep UTI, PSVT with hypotension, prolonged QT interval due to amiodarone and Zyprexa Activity: Resume your previous activity Non-emergency contact: Primary Care Provider and Psychiatrist Call non-emergency contact if: you have any medication questions Follow-up/Referrals: Jann Brewer DO [Primary Care Provider] - Diet: Regular Addtl Attending Provider Instructions: Zyprexa has been added twice daily. Take chlorthalidone daily as directed. Take potassium as directed. Take amiodarone to control heart rate as directed. Prescriptions have been sent to [facility] Pending Studies at Discharge: No Stand-Alone Forms: My [employer], Smoking Cessation Medications and DC Order Prescriptions: New amiodarone 200 mg Tablet 200 mg PO QAM Qty: 30 0RF clonazepam 0.5 mg Tablet 0.5 mg PO HS Qty: 20 0RF olanzapine 2.5 mg Tablet 2.5 mg PO BID Qty: 60 0RF potassium chloride 20 mEq Tablet,Er Particles/Crystals 20 meq PO BID Qty: 60 0RF docusate sodium 100 mg Capsule 100 mg PO BID Qty: 60 0RF Continued omeprazole 40 mg capsule,delayed release(DR/EC) 40 mg PO BID Qty: 180 3RF carbidopa-levodopa 25-100 mg tablet 1 tab PO .COMPLEX PRN (Reason: breakthrough RLS sx) 30 Days Qty: 60 5RF Rx Instructions: 1 tab orally 1-2 times PRN; levothyroxine 112 mcg tablet See Rx Instructions .ROUTE .COMPLEX Qty: 108 1RF Rx Instructions: Take 1 tablet Mom-Fri and 1.5 tablets Sat and Sun; Linzess 290 mcg capsule 290 mcg PO DAILY Qty: 90 3RF topiramate 50 mg tablet 50 mg PO QPM topiramate 25 mg tablet 25 mg PO QAM Qty: 30 0RF Rx Instructions: take one tablet in the morning. Zepbound 7.5 mg/0.5 mL pen injector 7.5 mg subcut Q7D Qty: 2 0RF (DME) Spacer for Inhaler Misc See Rx Instructions .Route Qty: 1 0RF Rx Instructions: As directed clonidine HCl 0.1 mg tablet 0.1 mg PO QAM zoledronic dhtw-tfuahjwz-zlrap [Reclast] 5 mg/100 mL piggyback 1 ea IV UD Rx Instructions: UNABLE TO VERIFY sertraline [Zoloft] 100 mg tablet 200 mg PO QAM clonidine HCl 0.1 mg tablet 0.2 mg PO HS carbidopa-levodopa 50-200 mg tablet extended release 1 tab PO TID famotidine 40 mg tablet 40 mg PO DAILY gabapentin 300 mg capsule 300 mg PO BID lamotrigine 150 mg tablet 150 mg PO BID amantadine HCl 100 mg tablet 100 mg PO BID montelukast 10 mg tablet 10 mg PO DAILY ProAir RespiClick 90 mcg/actuation aerosol powdr breath activated 1 inh INHALATION QID doxepin 10 mg capsule 10 mg PO HS Discontinued lithium carbonate 300 mg capsule 600 mg PO QPM lithium carbonate 300 mg capsule 300 mg PO QAM clonazepam 1 mg tablet 1 mg PO DAILY PRN (Reason: Anxiety) Discharge Orders: Discharge Order (Routine); Ordered 09/07/24 Ordered By: Dominic Goncalves Admission Data Admit Date/Time: 08/29/24 21:25 Attending Provider: Dominic Goncalves Admit Provider: Andres Gray Primary Care Provider: Jann Brewer Other Providers: Charles Pearce; Jose Luis Rey; Aj Mai Kevin C.; Elle Cox; Collin Camejo; Anuradha Beaver; Yamila Mccoy; Anthony Purcell; Sapphire Gonzalez Hospital Stay Data Consultations 08/29/24 20:10 ED Decision to Admit Stat 08/29/24 21:20 Consult Cardiology Routine Consult Reptile Keeper Routine 08/30/24 19:09 Consult Nephrology Routine 09/02/24 11:15 Consult Psychiatry Routine Diagnostic Imagining Performed 08/29/24 18:34 CT head/brain wo con Stat Pending Results Patient Have Any Pending Studies at Discharge: No Discharge Instructions Given to Patient (Per Discharging Provider) Zyprexa has been added twice daily. Take chlorthalidone daily as directed. Take potassium as directed. Take amiodarone to control heart rate as directed. Prescriptions have been sent to [facility] Total Time Total Time Spent Total Time Spent (In Minutes): 50 minutes Coding Level of Care Code 58635 INP/OBS DISCH >30 MIN Diagnoses SAMEER (acute kidney injury) N17.9 Encephalopathy G93.40 UTI (urinary tract infection) N39.0 SVT (supraventricular tachycardia) I47.10 Berry adverse reaction T43.595A Nephrogenic diabetes insipidus N25.1 Hypokalemia E87.6 Disruptive behavior disorder F91.9 Prolonged QT interval R94.31
[2024-09-07 14:00] VITALS: BP 145/90
[2024-09-07 15:23] LABS: BUN Creatinine Ratio 10.8 (10-20); Calcium 9.5 mg/dl (8.6-10.3); Potassium 3.4 mmol/L (3.5-5.1)
[2024-09-07] MEDS ORDERED: POTASSIUM CHLORIDE CRTAB 20 MEQ TABCR PO SCH (21:00)
[2024-09-08] MEDS ORDERED: hydroCHLOROthiazide 25 MG TAB PO SCH (09:00)
--- NOTE | 2024-09-08 22:13 | Electrocardiogram Report ---
Test Reason : Blood Pressure : */* mmHG Vent. Rate : 99 BPM Atrial Rate : 99 BPM P-R Int : 194 ms QRS Dur : 60 ms QT Int : 322 ms P-R-T Axes : 61 23 58 degrees QTcB Int : 413 ms Poor data quality, interpretation may be adversely affected Normal sinus rhythm Low voltage QRS Cannot rule out Anteroseptal infarct , age undetermined Nonspecific T wave abnormality Abnormal ECG When compared with ECG of 02-Sep-2024 10:51, Sinus rhythm has replaced Supraventricular tachycardia Confirmed by Devonte Mo ([id number]) on 09/08/2024 10:13:06 PM Referred By: REFERRED SELF Confirmed By: Devonte Mo
--- NOTE | 2024-09-08 22:15 | Electrocardiogram Report ---
Test Reason : Blood Pressure : */* mmHG Vent. Rate : 112 BPM Atrial Rate : 112 BPM P-R Int : 172 ms QRS Dur : 70 ms QT Int : 338 ms P-R-T Axes : * -7 25 degrees QTcB Int : 462 ms Sinus tachycardia Inferior infarct , age undetermined Anteroseptal infarct (cited on or before 05-Sep-2024) Nonspecific ST and T wave abnormality Abnormal ECG When compared with ECG of 05-Sep-2024 10:24, Inferior infarct is now Present Confirmed by Devonte Mo ([id number]) on 09/08/2024 10:14:45 PM Referred By: REFERRED SELF Confirmed By: Devonte Mo
--- NOTE | 2024-09-09 09:22 | Coding Query ---
CODING QUERY To promote full compliance with coding requirements relating to patient care, provider participation is requested in all cases of road roller engineer uncertainty. Please assist us with the question(s) below: Coding Question(s): There is documentation starting on the 08/29 Critical Care Consultation regarding Sepsis of, "admitted to hospital for encephalopathy in setting of SIRS with source possibly urine (sepsis), that had 2 episodes of SVT requiring administration of adenosine", and, "At this time encephalopathy multifocal - to include secondary to sepsis/UTI", and, "ID - Sepsis - Sepsis likely from urine- organ dysfunction - renals, encephalopathy", then there is also additional documentation on the 08/30 Critical Care Prognosis of, "--SVT - no history of dysrhythmia that is known of Could be secondary to underlying sepsis", and the 08/30 Hospitalist Progress Note documents, "Sepsis" under the Assessment & Plan, and then documentation of Sepsis drops off in the rest of the record by attending but is still documented in the remainder of the Critical Care Progress Notes with, "Sepsis" listed under the Assessment & Plan. Please specify below, in your clinical opinion, regarding Sepsis documentation: ( x ) I agree with Sepsis diagnosis documentation. Please specify further below regarding present on admission status: ( x ) present on admission ( ) not present on admission ( ) I agree with Sepsis diagnosis Present on Admission, but, other specificity: Please specify ( ) I agree with Sepsis diagnosis, Not present on admission, but, other specificity: Please specify ( ) Sepsis is Ruled-out Physician's Response(s): Thank you Niesha Singh Principal Diagnosis: "that condition established after study, to be chiefly responsible for occasioning the admission of the patient to the hospital for care." Co-Existing Principal Diagnosis: "when two or more diagnoses equally meet the criteria for principal diagnosis as determined by the circumstances of admission, diagnostic work up, and/or therapy provided, and the Alphabetic Index, Tabular List, or another coding guideline does not provide sequencing direction, any one of the diagnoses may be sequenced first." "When the physician has documented what appears to be a current diagnosis in the body of the record, but has not included the diagnosis in the final diagnostic statement, the physician should be asked whether the diagnosis should be added." (Source [facility]oding [facility] 2 QTR90. p3-4) PIERRE
== END 2024-09-07 15:13 | disposition home or self-care (01) | DRG 871 ==
LOC: ED 18:22 → 1E 21:25 → SUATTDRO 21:25 → 1E 22:06 → 2N 09-01 15:55 → 1E 09-02 11:09 → 2S 09-03 14:48 → 2N 09-04 17:45